=== PATIENT | female | born 1940 | race Caucasian/White ===

== ENCOUNTER → 2018-04-30 07:57 | Outpatient (CLI) | payer MEDICARE, SELFPAY ==
[2018-04-30 09:02] LABS: Add Manual Diff / Slide Review NO; Basophils Percent Auto 0.7 % (0-2); Eosinophils Percent Auto 1.3 % (2-4); Hematocrit 44.4 % (36-46); Hemoglobin 15.2 g/dL (12.0-16.0); Lymphocytes Percent Auto 29.9 % (25-40); Mean Corpuscular HGB Conc 34.1 % (30-36); Mean Corpuscular Hemoglobin 32.4 PG (26-34); Mean Corpuscular Volume 94.9 fL (80-100); Monocytes Percent Auto 5.7 % (3-14); Neutrophils Absolute Auto 6000 /uL (3000-5900); Neutrophils Percent Auto 62.4 % (50-75); Platelet Count 209 X10^3/uL (150-400); Red Blood Cell Count 4.68 X10^6/uL (4.0-5.2); Red Cell Distribution Width 14.8 % (11.6-14.8); White Blood Cell Count 9.6 X10^3/uL (4.5-11.0)
[2018-04-30 09:30] LABS: Blood Urea Nitrogen 20 mg/dL (7-17); Calcium 9.2 mg/dL (8.4-10.2); Carbon Dioxide 33 mmol/L (22-32); Chloride 107 mmol/L (98-107); Cholesterol 247 mg/dL (140-199); Estimated Glomerular Filt Rate > 60.0 mL/min (>60); Glucose 94 mg/dL (80-110); HDL Cholesterol 47 mg/dL (40-60); HEMOLYSIS < 15 (0-50); LDL Cholesterol Calculated 169 mg/dL (<100); Sodium 146 mmol/L (137-145); Triglycerides 154 mg/dL (35-150)
[2018-04-30 10:46] LABS: Hemoglobin A1C% w Est Avg Glu 5.2 % (4.0-6.0)
[2018-04-30 11:54] LABS: Free T4, Direct Thyroxine 1.15 ng/dL (0.78-2.19)
[2018-04-30 12:18] LABS: TSH w/ Reflex to FT4 1.21 uIU/mL (0.47-4.68)
== END ==
PROVIDERS: PCP Family Medicine; Visit Provider Family Medicine
DX: E16.2 Hypoglycemia, unspecified (principal); E78.5 Hyperlipidemia, unspecified; E03.9 Hypothyroidism, unspecified
CPT/HCPCS: 36415; 80048; 80061; 83036; 84439; 84443; 85025

== ENCOUNTER → 2018-09-24 08:29 | Outpatient (CLI) | payer MEDICARE, SELFPAY ==
[2018-09-24 10:10] LABS: Cholesterol 280 mg/dL (140-199); HDL Cholesterol 48 mg/dL (40-60); LDL Cholesterol Calculated 196 mg/dL (<100); Triglycerides 180 mg/dL (35-150)
[2018-09-24 10:13] LABS: Free T3, Triiodothyronine Free 2.83 pg/mL (2.77-5.27); Free T4, Direct Thyroxine 1.13 ng/dL (0.78-2.19)
== END ==
PROVIDERS: PCP Family Medicine; Visit Provider Family Medicine
DX: E03.9 Hypothyroidism, unspecified (principal); E78.5 Hyperlipidemia, unspecified
CPT/HCPCS: 36415; 80061; 84439; 84443; 84481

== ENCOUNTER → 2018-10-24 09:58 | Outpatient (CLI) | payer MEDICARE, SELFPAY | PROVIDERS: Family Provider Family Medicine; PCP Family Medicine; Visit Provider Family Medicine | DX: Z13.820 Encounter for screening for osteoporosis (principal); M85.852 Other specified disorders of bone density and structure, left thigh; Z78.0 Asymptomatic menopausal state; Z90.722 Acquired absence of ovaries, bilateral; S62.101A Fracture of unspecified carpal bone, right wrist, initial encounter for closed fracture; F17.200 Nicotine dependence, unspecified, uncomplicated | CPT/HCPCS: 77080 ==

== ENCOUNTER → 2019-04-07 07:43 | Outpatient (CLI) | payer MEDICARE, SELFPAY ==
[2019-04-07 08:47] LABS: Add Manual Diff / Slide Review NO; Basophils Absolute Auto 100 /uL (0-100); Eosinophils Absolute Auto 100 /uL (0-450); Eosinophils Percent Auto 1.4 % (2-4); Hematocrit 43.6 % (36-46); Hemoglobin 15.1 g/dL (12.0-16.0); Lymphocytes Absolute Auto 3200 /uL (1100-4500); Lymphocytes Percent Auto 33.6 % (25-40); Mean Corpuscular HGB Conc 34.7 % (30-36); Mean Corpuscular Hemoglobin 32.9 PG (26-34); Mean Corpuscular Volume 94.9 fL (80-100); Monocytes Absolute Auto 500 /uL (0-900); Monocytes Percent Auto 5.5 % (3-14); Neutrophils Absolute Auto 5600 /uL (1500-7000); Neutrophils Percent Auto 58.5 % (50-75); Platelet Count 233 X10^3/uL (150-400); Red Cell Distribution Width 13.9 % (11.6-14.8); White Blood Cell Count 9.6 X10^3/uL (4.5-11.0)
[2019-04-07 08:49] LABS: Appearance Urine UA CLEAR; Bilirubin Urine UA NEGATIVE (NEGATIVE); Color Urine UA YELLOW; Glucose Urine UA NEGATIVE (Negative); Ketones Urine UA NEGATIVE (NEGATIVE); Leukocyte Esterase Urine UA NEGATIVE (NEGATIVE); Nitrite Urine UA NEGATIVE (Negative); Occult Blood Urine UA 3+ (Negative); Protein Urine UA 3+ (Negative); Specific Gravity Urine UA 1.025 (1.000-1.035); Urobilinogen Urine UA 0.2 E.U./dL (0.2); pH Urine UA 5.5 (4.5-8.0)
[2019-04-07 09:33] LABS: Alanine Aminotransferase 15 IU/L (9-52); Albumin 3.8 g/dL (3.5-5.0); Albumin Globulin Ratio 1.4 (1.0-2.8); Alkaline Phosphatase 74 U/L (38-126); Aspartate Aminotransferase 24 IU/L (14-36); Bilirubin Total 0.5 mg/dL (0.2-1.3); Blood Urea Nitrogen 12 mg/dL (7-17); Carbon Dioxide 31 mmol/L (22-32); Chloride 108 mmol/L (98-107); Cholesterol 225 mg/dL (140-199); Estimated Glomerular Filt Rate > 60.0 mL/min (>60); Globulin 2.8 g/dL (1.7-4.1); Glucose 100 mg/dL (80-110); HDL Cholesterol 42 mg/dL (40-60); HEMOLYSIS < 15 (0-50); LDL Cholesterol Calculated 146 mg/dL (<100); Potassium 4.1 mmol/L (3.4-5.1); Sodium 145 mmol/L (137-145); Total Protein 6.6 g/dL (6.3-8.2); Triglycerides 183 mg/dL (35-150)
[2019-04-07 09:40] LABS: Thyroid Stimulating Hormone 1.82 uIU/mL (0.47-4.68)
== END ==
PROVIDERS: Family Provider Family Medicine; PCP Family Medicine; Visit Provider Family Medicine
DX: E78.5 Hyperlipidemia, unspecified (principal); E03.9 Hypothyroidism, unspecified
CPT/HCPCS: 36415; 80053; 80061; 81003; 84443; 85025

== ENCOUNTER → 2019-11-27 08:35 | Outpatient (CLI) | payer MEDICARE, SELFPAY ==
[2019-11-27 09:33] LABS: Add Manual Diff / Slide Review NO; Basophils Absolute Auto 100 /uL (0-100); Basophils Percent Auto 0.8 % (0-2); Eosinophils Absolute Auto 100 /uL (0-450); Eosinophils Percent Auto 1.5 % (2-4); Hematocrit 44.3 % (36-46); Hemoglobin 15.5 g/dL (12.0-16.0); Lymphocytes Absolute Auto 3000 /uL (1100-4500); Lymphocytes Percent Auto 29.7 % (25-40); Mean Corpuscular Hemoglobin 33.5 PG (26-34); Mean Corpuscular Volume 95.9 fL (80-100); Monocytes Absolute Auto 500 /uL (0-900); Monocytes Percent Auto 4.9 % (3-14); Neutrophils Absolute Auto 6400 /uL (1500-7000); Neutrophils Percent Auto 63.1 % (50-75); Platelet Count 227 X10^3/uL (150-400); Red Blood Cell Count 4.62 X10^6/uL (4.0-5.2); Red Cell Distribution Width 14.4 % (11.6-14.8); White Blood Cell Count 10.1 X10^3/uL (4.5-11.0)
[2019-11-27 09:50] LABS: Alanine Aminotransferase 18 IU/L (<35); Albumin 4.1 g/dL (3.5-5.0); Albumin Globulin Ratio 1.5 (1.0-2.8); Alkaline Phosphatase 69 U/L (38-126); Aspartate Aminotransferase 25 IU/L (14-36); BUN Creatinine Ratio 24.3 (6-22); Bilirubin Total 0.5 mg/dL (0.2-1.3); Blood Urea Nitrogen 17 mg/dL (7-17); Calcium 9.3 mg/dL (8.4-10.2); Carbon Dioxide 29 mmol/L (22-32); Chloride 106 mmol/L (98-107); Cholesterol 190 mg/dL (140-199); Estimated Glomerular Filt Rate > 60.0 mL/min (>60); Globulin 2.7 g/dL (1.7-4.1); Glucose 99 mg/dL (80-110); HDL Cholesterol 49 mg/dL (40-60); HEMOLYSIS < 15 (0-50); LDL Cholesterol Calculated 102 mg/dL (<100); Potassium 3.9 mmol/L (3.4-5.1); Sodium 144 mmol/L (137-145); Total Protein 6.8 g/dL (6.3-8.2); Triglycerides 193 mg/dL (35-150)
[2019-11-27 10:14] LABS: Free T4, Direct Thyroxine 1.08 ng/dL (0.78-2.19)
[2019-11-27 10:28] LABS: Thyroid Stimulating Hormone 1.05 uIU/mL (0.47-4.68)
== END ==
PROVIDERS: Family Provider Family Medicine; PCP Family Medicine; Referring Provider Family Medicine; Visit Provider Family Medicine
DX: E03.9 Hypothyroidism, unspecified (principal); E78.5 Hyperlipidemia, unspecified
CPT/HCPCS: 36415; 80053; 80061; 84439; 84443; 84481; 85025

== ENCOUNTER → 2020-12-29 09:03 | Outpatient (CLI) | payer MEDICARE, SELFPAY ==
[2020-12-29] MEDS: COVID-19 VACC, Ad26(JANSSEN)/PF 0.5 ML IM (09:10)
== END ==
PROVIDERS: Family Provider Family Medicine; PCP Family Medicine; Visit Provider Internal Medicine
DX: Z23 Encounter for immunization (principal)
CPT/HCPCS: 0031A; 91303

== ENCOUNTER 2021-10-01 15:05 | Emergency (ER) | payer MEDICARE, SELFPAY ==
[2021-10-01 15:20] VITALS: BP 157/70; PULSE 94; RESP 16; TEMP 36.4; O2SAT 100; BMI 21.2
--- NOTE | 2021-10-01 15:29 | DI.RAD.S_ITS ---
PROCEDURE: XR HIP W PEL IF DONE RT 2V INDICATIONS: fall/pain/slidind door landed on her TECHNIQUE: Two views of the right were acquired. COMPARISON: None. FINDINGS: Bones: No fractures or dislocations. No suspicious bony lesions. The visualized pelvic ring appears intact. Soft tissues: No suspicious soft tissue calcifications or masses. IMPRESSION: No fracture demonstrated. Dictated by: Osbaldo Warner M.D. on 10/01/2021 at 16:22 Approved by: Osbaldo Warner M.D. on 10/01/2021 at 16:23
--- NOTE | 2021-10-01 15:30 | DI.RAD.S_ITS ---
PROCEDURE: XR KNEE RT 3V INDICATIONS: fall/pain/slidind door landed on her TECHNIQUE: 3 views of the knee were acquired. COMPARISON: None. FINDINGS: Bones: No fractures or dislocations. No suspicious bony lesions. Soft tissues: No joint effusion. No suspicious soft tissue calcifications. IMPRESSION: No acute finding Dictated by: Osbaldo Warner M.D. on 10/01/2021 at 16:23 Approved by: Osbaldo Warner M.D. on 10/01/2021 at 16:23
--- NOTE | 2021-10-01 16:59 | ED_ITS ---
HPI - Extremity Injury (Lower) <Carmelina June Escalona [employer]PER[employer] - Last Filed: 10/01/21 18:21> General Chief Complaint: Extremity Injury, Lower Stated Complaint: RT HIP/KNEE PAIN POST GLASS DOOR FALLING ON HER Time Seen by Provider: 10/01/21 16:58 Source: patient Mode of arrival: Ambulatory History of Present Illness HPI Narrative: 81-year-old female presents to the emergency department for ongoing right hip and knee pain after a glass door fell on her without breaking 1 week ago. Patient reports that she has had symptoms of sciatica, right hip pain, and right knee pain which is worse in the morning when she gets up, she reports he gets better after some gentle range of motion. She has been taking Aleve, and Flexeril for her pain. She has been using a cane to ambulate and denies any weakness. She reports that she has history of spinal stenosis, osteopenia, she denies any spinal pain, she reports that her pain is mostly in her right buttock and there is a large bruise which has been healing but turning different colors this week. She also has a bruise on the medial aspect of her right knee which she reports is starting to feel better but is still painful. She is able to bear weight, range of motion in her right knee and her right hip is intact without any deficits. She walks with a steady gait, denies any loss of bowel, endorses that she has incontinence of her bladder at baseline. Patient reports that her orthopedist is Dr. Mariely Vang, and her primary care doctor is Dr. Salas. Patient reports she is very active at baseline, is not on any blood thinners, she endorses having history of Sjogren's syndrome. Related Data Home Medications Medication Instructions Recorded Confirmed loperamide 1 mg/7.5 mL oral liquid 1 mg PO DAILY PRN #0 ml 05/07/18 02/14/21 (Imodium A-D) Probiotic PO TID 03/22/20 02/14/21 cholecalciferol (vitamin D3) 100 200 mcg PO DAILY tab 03/22/20 02/14/21 mcg (4,000 unit) tablet melatonin 5 mg tablet 5 mg PO BEDTIME PRN 03/22/20 02/14/21 multivitamin 1 tab PO DAILY 03/22/20 02/14/21 omega-3 fatty acids 1,000 mg 1,000 mg PO DAILY 03/22/20 02/14/21 capsule (Fish Oil Concentrate) Previous Rx's Medication Instructions Recorded cyclobenzaprine 10 mg tablet 10 mg PO DAILY PRN #30 tab 05/26/19 buspirone 5 mg tablet 5 mg PO BID #60 tab 04/17/21 levothyroxine 50 mcg tablet See Rx Instructions .ROUTE 06/20/21 .COMPLEX #90 tab ezetimibe 10 mg tablet See Rx Instructions .ROUTE 08/15/21 .COMPLEX #90 tab gabapentin 100 mg capsule See Rx Instructions .ROUTE 09/21/21 .COMPLEX #240 cap acetaminophen 300 mg-codeine 30 mg 1 tab PO BID PRN #10 tab 10/01/21 tablet methocarbamol 500 mg tablet 500 mg PO BEDTIME #10 tab 10/01/21 Allergies Allergy/AdvReac Type Severity Reaction Status Date / Time meloxicam [MELOXICAM] Allergy Severe ANAPHYLAXIS Verified 02/14/21 08:29 atorvastatin [From LIPITOR] Allergy Unknown MUSCLE Verified 02/14/21 08:29 PAIN, ANKLE SWELLING levofloxacin [LEVOFLOXACIN] Allergy Unknown TENDONITIS Verified 02/14/21 08:29 Penicillins Allergy Unknown ANAPHLYAXSI Verified 02/14/21 08:29 S rifampin [RIFAMPIN] Allergy Unknown Verified 02/14/21 08:29 simvastatin [From ZOCOR] Allergy Unknown Verified 02/14/21 08:29 metoprolol [METOPROLOL] AdvReac Unknown HAIR LOSS Verified 02/14/21 08:29 NSAIDS (Non-Steroidal AdvReac Unknown BREAST Verified 02/14/21 08:29 Anti-Inflamma SWELLING [NSAIDS (NON-STEROIDAL ANTI-INFLAMMA] Review of Systems <CATY Gonzalez - Last Filed: 10/01/21 18:21> Review of Systems Narrative: General: denies fever, chills Head/Neck: denies headache, neck pain Eyes: denies visual changes, eye pain Cardio: denies chest pain, palpitations Respiratory: denies shortness of breath, cough GI: denies abdominal pain, nausea, vomiting, or diarrhea : denies dysuria, hematuria MSK: denies muscle weakness, endorses right hip, buttock, thigh and right knee pain. Bruising present to her right buttock hip and right knee Skin: denies rash, itching Neuro: denies numbness, tingling Patient History <CATY Gonzalez - Last Filed: 10/01/21 18:21> Medical History Arthritis (Unknown) Cataracts, bilateral (2001) Chickenpox (~1947) Chronic diarrhea Chronic neck and back pain Chronic pain syndrome (Unknown) COPD (chronic obstructive pulmonary disease) (1998) Fractures (~1980) History of recurrent ear infection (Unknown) Hypothyroidism (Unknown) Mumps (~1947) Osteopenia (2004) Scoliosis (2015) Sjogren's syndrome (1998) Tinnitus of both ears (Unknown) Trigger finger, right middle finger Surgical History History of cataract removal with insertion of prosthetic lens History of open reduction and internal fixation (ORIF) procedure (11/2017) Hx of discectomy (Unknown) Hx of laminectomy (Unknown) Status post hysterectomy Family History Father Cancer Grandmother DM (diabetes mellitus screen) Mother Cancer Grandfather DM (diabetes mellitus screen) Grandfather Mental health problem Family/Other No problems noted. Social History Smoking Status: Current every day smoker Tobacco: How many years used: 59 quit status: considering quitting second hand exposure: Yes alcohol intake: never substance use type: does not use Smoking Status: Current every day smoker alcohol intake frequency: 0-2 drinks per day Substance Use Type: does not use Exam <CATY Gonzalez - Last Filed: 10/01/21 18:21> Narrative Exam Narrative: Independently reviewed vitals signs and nursing notes. General: Awake, alert, nontoxic, no cardiorespiratory distress Head/Neck: Atraumatic, neck full range of motion Eyes: EOMI, conjunctiva normal Nose: nares patent, no rhinorrhea Mouth/Throat: moist mucus membranes, posterior pharynx normal, no oral lesions Cardio: Regular rate and rhythm, no peripheral edema Respiratory: respirations unlabored without wheezing, stridor, or rales. No retractions. GI: Abdomen soft, nontender MSK: Moves all extremities, neurovascularly intact, pulses in her right foot are 2+ PT and DP, range of motion is fully intact right knee and right hip. Leg raise does reproduce pain in her low back with symptoms in her right hip and but tock. She has a large colorful bruise on her right buttock and lateral aspect of her right thigh, she also has a bruise on the medial aspect of her right knee which is starting to lighten. Skin: Normal capillary refill, no rash Neuro: Normal speech and cognition, normal gait Initial Vital Signs Initial Vital Signs: Vital Signs Temperature 97.6 F 10/01/21 15:20 Pulse Rate 94 H 10/01/21 15:20 Respiratory Rate 16 10/01/21 15:20 Blood Pressure 157/70 H 10/01/21 15:20 Pulse Oximetry 100 10/01/21 15:20 Course <CATY Gonzalez - Last Filed: 10/01/21 18:21> Orders Ordered: ED Orders 10/01/21 15:29 XR hip w pel if done RT 2V Stat 10/01/21 15:30 XR knee RT 3V Stat Discontinued Medications Acetaminophen/Codeine Phosphate (Codeine/Acetaminophen 30/300 Tablet) 1 tab PO NOW ONE Stop: 10/01/21 18:03 Last Admin: 10/01/21 18:37 Dose: Not Given Documented by: LOU Methocarbamol (Methocarbamol 500 Mg Tablet) 500 mg PO NOW ONE Stop: 10/01/21 18:03 Last Admin: 10/01/21 18:38 Dose: Not Given Documented by: LOU Vital Signs Vital signs: Vital Signs - 8 hr 10/01/21 15:20 Temperature 97.6 F Pulse Rate 94 H Respiratory Rate 16 Blood Pressure 157/70 H Pulse Oximetry 100 MDM - Extremity Injury (Lower) <CATY Gonzalez - Last Filed: 10/01/21 18:21> Imaging Data Extremity x-ray #1: Radiologist's Impression: PROCEDURE:? XR KNEE RT 3V ? INDICATIONS:? fall/pain/slidind door landed on her ? TECHNIQUE:? 3 views of the knee were acquired.? ? COMPARISON:? None. ? FINDINGS:? ? Bones:? No fractures or dislocations.? No suspicious bony lesions.? ? Soft tissues:? No joint effusion.? No suspicious soft tissue calcifications.? ? ? IMPRESSION:? No acute finding ? ? Dictated by: Osbaldo Warner M.D. on 10/01/2021 at 16:23 ? ? Approved by: Osbaldo Warner M.D. on 10/01/2021 at 16:23 ? Extremity x-ray #2: Radiologist's Impression: PROCEDURE:? XR HIP W PEL IF DONE RT 2V ? INDICATIONS:? fall/pain/slidind door landed on her ? TECHNIQUE:? Two views of the right were acquired.? ? COMPARISON:? None. ? FINDINGS:? ? Bones:? No fractures or dislocations.? No suspicious bony lesions.? The visualized pelvic ring appears intact.? ? Soft tissues:? No suspicious soft tissue calcifications or masses.? ? IMPRESSION:? No fracture demonstrated. ? ? Dictated by: Osbaldo Warner M.D. on 10/01/2021 at 16:22 ? ? Approved by: Osbaldo Warner M.D. on 10/01/2021 at 16:23 ? [facility] Narrative Medical decision making narrative: 81-year-old female presented to the emergency department with ongoing right hip and right knee pain which has been present since a glass door fell on her 1 week ago, it did not break however it did cause a large contusion of her right hip and the medial aspect of her right knee. She does not think that anything twisted when it fell on her butt she reports she has had ongoing pain which is worse in the morning. X-rays were both negative for acute fractures or dislocations, no visualized effusions in her joint spaces. Patient has been ambulating with a cane at home which has been helpful but she reports it is a little difficult getting up and down with it. She has been taking Aleve which has been moderately helpful she complains that it does not last long enough. She most likely has contusions of her right and knee, she has full range of motion without deficit. She has a history of spinal stenosis with symptoms of sciatica, she denies any worsening of this however she has experienced some sciatica at down her right buttock this week. She has had no new loss of bowel or bladder, she has urinary incontinence at baseline. She was given a walker to help her ambulate, Tylenol 3 for pain, and methocarbamol for muscle spasms. Differential includes cauda equina syndrome, sciatica, trochanteric bursitis, hip joint arthritis, sacroiliitis, lumbar facet joint degenerative arthritis, lumbar disc herniation with sciatica. Patient understands to follow-up with her primary care provider and Orthopedics if her symptoms are ongoing. Patient is appropriate and amenable to discharge home. Vital signs are stable on repeat examination is unremarkable. Patient has been informed of results. Patient has been given strict return to ER precautions for any new or worsening symptoms. Patient understands to follow up closely with outpatient providers as instruc tylor. Patient understands plan and agrees to discharge home. All questions and concerns answered at this time. Discharge Plan Departure Patient Disposition: Home Clinical Impression: Contusion of right hip Qualifiers: Encounter type: initial encounter Qualified Code(s): S70.01XA - Contusion of right hip, initial encounter Contusion of knee Qualifiers: Encounter type: initial encounter Laterality: right Qualified Code(s): S80.01XA - Contusion of right knee, initial encounter Instructions: DI for Knee Pain, DI for Hip Pain Activity Restrictions/Additional Instructions: *You have been diagnosed with contusions of your hip and knee. There are no fractures visualized on your x-ray today. Please follow-up with Dr. Mariely Vang and Dr. Salas for a recheck *What to do: *Please continue to take your regular medications as directed. [x ] New medication prescriptions sent to your pharmacy: [ [facility] pharmacy] [ ] New medication written as a paper prescription [ ] No new medications given *Please follow up with your primary care provider in 2-3 days, call for an appointment. Let them know you were seen in the Emergency Department and that we ask that you be seen in follow up. We will electronically transmit a record of today's note if your PCP is in our system *If you do not have a primary care provider please contact the [facility] Resource line at [phone]. They will ask some questions about your medical history and help get you set up with a doctor in the community. *Return to Emergency Department if you should have any new, worsening or concerning symptoms, such as [fever greater than 101F, chills, worsening pain, persistent vomiting or other bothersome symptoms] Prescriptions: New acetaminophen-codeine 300-30 mg tablet 1 tab PO BID PRN (Reason: pain) Qty: 10 0RF methocarbamol 500 mg tablet 500 mg PO BEDTIME Qty: 10 0RF No Action loperamide [Imodium A-D] 1 mg/7.5 mL liquid 1 mg PO DAILY PRNQty: 0 0RF cyclobenzaprine 10 mg tablet 10 mg PO DAILY PRN (Reason: muscle spasm) Qty: 30 0RF buspirone 5 mg tablet 5 mg PO BID Qty: 60 5RF levothyroxine 50 mcg tablet See Rx Instructions .ROUTE .COMPLEX Qty: 90 1RF Dose Instruction: TAKE ONE TABLET BY MOUTH ONE TIME DAILY Rx Instructions: TAKE ONE TABLET BY MOUTH ONE TIME DAILY ezetimibe 10 mg tablet See Rx Instructions .ROUTE .COMPLEX Qty: 90 0RF Dose Instruction: TAKE ONE TABLET BY MOUTH ONE TIME DAILY Rx Instructions: TAKE ONE TABLET BY MOUTH ONE TIME DAILY gabapentin 100 mg capsule See Rx Instructions .ROUTE .COMPLEX Qty: 240 0RF Dose Instruction: TAKE TWO CAPSULES BY MOUTH FOUR TIMES DAILY Rx Instructions: TAKE TWO CAPSULES BY MOUTH FOUR TIMES DAILY Probiotic PO TID 0RF cholecalciferol (vitamin D3) 100 mcg (4,000 unit) tablet 200 mcg PO DAILY 0RF melatonin 5 mg tablet 5 mg PO BEDTIME PRN0RF omega-3 fatty acids [Fish Oil Concentrate] 1,000 mg capsule 1,000 mg PO DAILY 0RF multivitamin Tablet 1 tab PO DAILY 0RF Referrals: Mariely Vang MD [Physician] - 5-7 days Michel Salas DO [Primary Care Provider] -
== END 2021-10-01 18:41 | disposition home or self-care (01) ==
PROVIDERS: Emergency Provider Nurse Practitioner Critical Care Medicine; Family Provider Family Medicine; PCP Family Medicine
DX: S70.01XA Contusion of right hip, initial encounter (principal); S80.01XA Contusion of right knee, initial encounter; W20.8XXA Other cause of strike by thrown, projected or falling object, initial encounter
CPT/HCPCS: 73502; 73562; 99283

== ENCOUNTER → 2021-10-07 16:07 | Outpatient (CLI) | payer MEDICARE, SELFPAY ==
[2021-10-07 17:02] LABS: COVID19 -Nasal RAPID Negative (Negative)
== END ==
PROVIDERS: Family Provider Family Medicine; PCP Family Medicine; Visit Provider Physician Assistant
DX: R09.89 Other specified symptoms and signs involving the circulatory and respiratory systems (principal); J02.9 Acute pharyngitis, unspecified
CPT/HCPCS: 87635

== ENCOUNTER → 2021-10-08 10:42 | Outpatient (CLI) | payer MEDICARE, SELFPAY ==
--- NOTE | 2021-10-08 10:46 | DI.RAD.S_ITS ---
PROCEDURE: XR CHEST 2V INDICATIONS: cough x1 mo, worsening, fever 2d ago, fhx lung CA TECHNIQUE: 2 views of the chest were acquired. COMPARISON: None. FINDINGS: Surgical changes and devices: None. Lungs and pleura: Lungs are clear. No pleural effusions or pneumothorax. Mediastinum: Mediastinal contours are normal. Heart size is normal. Bones and chest wall: Degenerative changes with no focal abnormality. No suspicious bony abnormalities. Soft tissues appear unremarkable. IMPRESSION: No acute cardiopulmonary abnormality. Dictated by: Bon Robbins M.D. on 10/08/2021 at 10:45 Approved by: Bon Robbins M.D. on 10/08/2021 at 10:52
== END ==
PROVIDERS: Family Provider Family Medicine; PCP Family Medicine; Referring Provider Physician Assistant; Visit Provider Physician Assistant
DX: J06.9 Acute upper respiratory infection, unspecified (principal)
CPT/HCPCS: 71046

== ENCOUNTER → 2022-03-14 09:30 | Outpatient (CLI) | payer MEDICARE, SELFPAY ==
[2022-03-14 10:29] LABS: Add Manual Diff / Slide Review NO; Basophils Absolute Auto 100 /uL (0-100); Basophils Percent Auto 0.7 % (0-2); Eosinophils Absolute Auto 100 /uL (0-450); Eosinophils Percent Auto 0.5 % (2-4); Hematocrit 42.6 % (36-46); Lymphocytes Absolute Auto 2900 /uL (1100-4500); Lymphocytes Percent Auto 27.3 % (25-40); Mean Corpuscular HGB Conc 35.2 % (30-36); Mean Corpuscular Hemoglobin 33.4 PG (26-34); Mean Corpuscular Volume 94.8 fL (80-100); Monocytes Absolute Auto 500 /uL (0-900); Monocytes Percent Auto 4.4 % (3-14); Neutrophils Absolute Auto 7200 /uL (1500-7000); Neutrophils Percent Auto 67.1 % (50-75); Platelet Count 199 X10^3/uL (150-400); Red Blood Cell Count 4.49 X10^6/uL (4.0-5.2); Red Cell Distribution Width 14.3 % (11.6-14.8); White Blood Cell Count 10.8 X10^3/uL (4.5-11.0)
[2022-03-14 10:50] LABS: Alanine Aminotransferase 11 IU/L (<35); Albumin 4.6 g/dL (3.5-5.0); Albumin Globulin Ratio 1.9 (1.0-2.8); Alkaline Phosphatase 91 U/L (38-126); Aspartate Aminotransferase 21 IU/L (14-36); BUN Creatinine Ratio 16.9 (6-22); Bilirubin Total 0.6 mg/dL (0.2-1.3); Blood Urea Nitrogen 13 mg/dL (7-17); Calcium 9.7 mg/dL (8.4-10.2); Carbon Dioxide 28 mmol/L (22-32); Chloride 106 mmol/L (98-107); Cholesterol 166 mg/dL (140-199); Estimated Glomerular Filt Rate > 60 mL/min (>60); Globulin 2.4 g/dL (1.7-4.1); Glucose 103 mg/dL (80-110); HDL Cholesterol 48 mg/dL (40-60); HEMOLYSIS < 15 (0-50); LDL Cholesterol Calculated 89 mg/dL (<100); Potassium 4.1 mmol/L (3.4-5.1); Sodium 143 mmol/L (137-145); Triglycerides 146 mg/dL (35-150)
[2022-03-14 11:05] LABS: Free T3, Triiodothyronine Free 2.98 pg/mL (2.77-5.27)
[2022-03-14 11:19] LABS: TSH w/ Reflex to FT4 0.91 uIU/mL (0.47-4.68)
== END ==
PROVIDERS: Family Provider Family Medicine; PCP Family Medicine; Referring Provider Family Medicine; Visit Provider Family Medicine
DX: E78.5 Hyperlipidemia, unspecified (principal); E03.9 Hypothyroidism, unspecified
CPT/HCPCS: 36415; 80053; 80061; 84443; 84481; 85025

== ENCOUNTER → 2023-04-19 12:29 | Outpatient (CLI) | payer MEDICARE, SELFPAY ==
[2023-04-19 13:34] LABS: Add Manual Diff / Slide Review NO; Basophils Absolute Auto 100 /uL (0-100); Basophils Percent Auto 0.8 % (0-2); Eosinophils Absolute Auto 100 /uL (0-450); Eosinophils Percent Auto 0.9 % (2-4); Hematocrit 44.9 % (36-46); Hemoglobin 15.6 g/dL (12.0-16.0); Lymphocytes Absolute Auto 3900 /uL (1100-4500); Lymphocytes Percent Auto 35.1 % (25-40); Mean Corpuscular HGB Conc 34.8 % (30-36); Mean Corpuscular Hemoglobin 32.9 PG (26-34); Mean Corpuscular Volume 94.5 fL (80-100); Monocytes Absolute Auto 700 /uL (0-900); Monocytes Percent Auto 6.4 % (3-14); Neutrophils Absolute Auto 6300 /uL (1500-7000); Neutrophils Percent Auto 56.8 % (50-75); Platelet Count 202 X10^3/uL (150-400); Red Blood Cell Count 4.75 X10^6/uL (4.0-5.2); Red Cell Distribution Width 14.4 % (11.6-14.8); White Blood Cell Count 11.1 X10^3/uL (4.5-11.0)
[2023-04-19 13:51] LABS: Alanine Aminotransferase 19 IU/L (<35); Albumin 4.7 g/dL (3.5-5.0); Albumin Globulin Ratio 1.5 (1.0-2.8); Alkaline Phosphatase 99 U/L (38-126); Aspartate Aminotransferase 26 IU/L (14-36); BUN Creatinine Ratio 22.7 (6-22); Bilirubin Total 0.6 mg/dL (0.2-1.3); Blood Urea Nitrogen 17 mg/dL (7-17); Calcium 9.5 mg/dL (8.4-10.2); Carbon Dioxide 26 mmol/L (22-32); Chloride 105 mmol/L (98-107); Cholesterol 235 mg/dL (140-199); Estimated Glomerular Filt Rate > 60 mL/min (>60); Globulin 3.1 g/dL (1.7-4.1); Glucose 97 mg/dL (80-110); HDL Cholesterol 45 mg/dL (40-60); HEMOLYSIS < 15 (0-50); LDL Cholesterol Calculated 153 mg/dL (<100); Potassium 3.7 mmol/L (3.4-5.1); Sodium 141 mmol/L (137-145); Total Protein 7.8 g/dL (6.3-8.2); Triglycerides 184 mg/dL (35-150)
[2023-04-19 14:20] LABS: TSH w/ Reflex to FT4 1.35 uIU/mL (0.47-4.68)
== END ==
PROVIDERS: Family Provider Family Medicine; PCP Family Medicine; Referring Provider Family Medicine; Visit Provider Family Medicine
DX: E03.9 Hypothyroidism, unspecified (principal); E78.2 Mixed hyperlipidemia; M85.80 Other specified disorders of bone density and structure, unspecified site
CPT/HCPCS: 36415; 80053; 80061; 84443; 85025

== ENCOUNTER → 2023-04-19 | Outpatient (CLI) | payer MEDICARE, SELFPAY | LOC: LAB 11:40 | PROVIDERS: Family Provider Family Medicine; PCP Family Medicine; Referring Provider Family Medicine; Visit Provider Family Medicine | DX: Z01.812 Encounter for preprocedural laboratory examination (principal) ==

== ENCOUNTER 2024-06-30 04:47 | Inpatient (IN) | payer MEDICARE, SELFPAY ==
[2024-06-30] VITALS (21 sets, daily range): BP systolic 95–175; BP diastolic 42–75; PULSE 70–98; RESP 11–20; TEMP 36.6–37.5; O2SAT 96–100; BMI 20.3; BMI 19.7
--- NOTE | 2024-06-30 | DI.RAD.S_ITS ---
PROCEDURE: XR HIP W PEL IF DONE LT 2V INDICATIONS: OLY anterior Left TECHNIQUE: AP pelvis and lateral view of the hip acquired. COMPARISON: [facility], JUSTIN, XR HIP W PEL IF DONE LT 2V, 06/30/2024, 18:17. FINDINGS: Bones: Patient is status post left hip arthroplasty, with hardware components in expected positions. The hip joint appears congruent. The visualized bony structures appear intact. Soft tissues: Overlying postoperative changes are noted. No suspicious soft tissue densities. IMPRESSION: Expected post-operative appearance of a hip arthroplasty. Dictated by: Kevin Olmstead M.D. on 06/30/2024 at 20:15 Approved by: Kevin Olmstead M.D. on 06/30/2024 at 20:16
--- NOTE | 2024-06-30 | DI.RAD.S_ITS ---
PROCEDURE: XR HIP W PEL IF DONE LT 2V INDICATIONS: OLY anterior left TECHNIQUE: AP pelvis with lateral view(s) of the left hip(s). 5 images. [facility], [id number], [facility]/16/2017, 8:39. FINDINGS: Bones: Status post left hip arthroplasty. Arthroplasty projects in the expected location. No fractures or dislocations. IMPRESSION: Intraoperative guidance provided. Left hip arthroplasty projects in the expected location. Dictated by: Bandar Whitney M.D. on 06/30/2024 at 20:02 Approved by: Bandar Whitney M.D. on 06/30/2024 at 20:03
--- NOTE | 2024-06-30 04:51 | DI.RAD.S_ITS ---
PROCEDURE: XR FEMUR LT MIN 2V INDICATIONS: GLF/L HIP/LEG PAIN TECHNIQUE: 3 views of the femur were acquired. COMPARISON: [facility], , XR PELVIS 1-2V, 06/30/2024, 5:05. FINDINGS: Bones: No fractures or dislocations. No suspicious bony lesions. Arthritic changes at the hip as well as visualized knee. Soft tissues: No suspicious soft tissue calcifications or masses. IMPRESSION: No visualized acute fracture or dislocation. However, if clinical concern and/or pain persist, short interval imaging followup in 7-10 days is recommended, as occult injury cannot be definitively excluded. The above findings are concordant with preliminary report. Dictated by: Elena Lai M.D. on 06/30/2024 at 9:30 Approved by: Elena Lai M.D. on 06/30/2024 at 9:32
--- NOTE | 2024-06-30 04:51 | DI.RAD.S_ITS ---
PROCEDURE: XR PELVIS 1-2V INDICATIONS: GLF/L HIP/CAN'T BEAR WEIGHT TECHNIQUE: 1 view(s) of the pelvis acquired. COMPARISON: [facility], CR, XR HIP W PEL IF DONE RT 2V, 10/01/2021, 15:50. FINDINGS: Bones: No fractures or dislocations. No suspicious bony lesions. Arthritic changes are present within the hips bilaterally. Soft tissues: Visualized bowel gas pattern is normal. No suspicious soft tissue calcifications. IMPRESSION: Arthritic changes. No visualized acute fracture or dislocation. However, if clinical concern and/or pain persist, short interval imaging followup in 7-10 days is recommended, as occult injury cannot be definitively excluded. The above findings are concordant with preliminary report. Dictated by: Elena Lai M.D. on 06/30/2024 at 9:32 Approved by: Elena Lai M.D. on 06/30/2024 at 9:33
--- NOTE | 2024-06-30 04:52 | ED.FALL ---
HPI - Fall <Savanah William MD - Last Filed: 06/30/24 18:54> General Chief Complaint: Fall Stated Complaint: GLF/Wrist Pain Time Seen by Provider: 06/30/24 04:51 History of Present Illness HPI Narrative: 84 year old female presents by EMS from home for evaluation of left hip pain after a ground level fall. Patient got up to use the restroom and she states that while she was in the bathroom she twisted, losing her balance, landing on her left hip. She denies hitting her head, denies loss of consciousness, denies use of blood thinners. Unable to get up unassisted and unable to bear weight on her lower extremity. Related Data Home Medications Medication Instructions Recorded Confirmed loperamide 1 mg/7.5 mL oral liquid 1 mg PO DAILY PRN diarrhea #0 mL 05/07/18 06/30/24 (Imodium A-D) Probiotic 1 tab PO PRN PRN Diarrhea 03/22/20 06/30/24 cholecalciferol (vitamin D3) 100 200 mcg PO DAILY 03/22/20 06/30/24 mcg (4,000 unit) tablet melatonin 5 mg tablet 5 mg PO BEDTIME PRN insomnia 03/22/20 06/30/24 multivitamin 1 tab PO DAILY 03/22/20 06/30/24 omega-3 fatty acids 1,000 mg 1,000 mg PO DAILY 03/22/20 06/30/24 capsule (Fish Oil Concentrate) Previous Rx's Medication Instructions Recorded acetaminophen 300 mg-codeine 30 mg 1 tab PO BID PRN pain #10 tabs 10/01/21 tablet ezetimibe 10 mg tablet See Rx Instructions .Route 08/14/22 .COMPLEX #90 tabs cyclobenzaprine 10 mg tablet 10 mg PO DAILY PRN muscle spasm 04/17/23 #30 tabs levothyroxine 50 mcg tablet See Rx Instructions .Route 09/09/23 .COMPLEX #90 tabs Allergies Allergy/AdvReac Type Severity Reaction Status Date / Time meloxicam [MELOXICAM] Allergy Severe ANAPHYLAXIS Verified 04/24/23 15:58 atorvastatin [From LIPITOR] Allergy Unknown MUSCLE Verified 04/24/23 15:58 PAIN, ANKLE SWELLING levofloxacin [LEVOFLOXACIN] Allergy Unknown TENDONITIS Verified 04/24/23 15:58 Penicillins Allergy Unknown ANAPHLYAXSI Verified 04/24/23 15:58 S rifampin [RIFAMPIN] Allergy Unknown Verified 04/24/23 15:58 simvastatin [From ZOCOR] Allergy Unknown Verified 04/24/23 15:58 metoprolol [METOPROLOL] AdvReac Unknown HAIR LOSS Verified 04/24/23 15:58 NSAIDS (Non-Steroidal AdvReac Unknown BREAST Verified 04/24/23 15:58 Anti-Inflamma SWELLING [NSAIDS (NON-STEROIDAL ANTI-INFLAMMA] Review of Systems <Nixon Messina DO - Last Filed: 06/30/24 07:41> Review of Systems Narrative: See HPI Patient History <Savanah William MD - Last Filed: 06/30/24 18:54> Medical History Trigger finger, right middle finger Chronic diarrhea Chronic neck and back pain Arthritis (Unknown) Tinnitus of both ears (Unknown) History of recurrent ear infection (Unknown) Sjogren's syndrome (1998) Mumps (~1947) Chickenpox (~1947) Chronic pain syndrome (Unknown) COPD (chronic obstructive pulmonary disease) (1998) Fractures (~1980) Osteopenia (2004) Scoliosis (2015) Cataracts, bilateral (2001) Hypothyroidism (Unknown) Surgical History History of open reduction and internal fixation (ORIF) procedure (11/2017) Hx of laminectomy (Unknown) Hx of discectomy (Unknown) History of cataract removal with insertion of prosthetic lens Status post hysterectomy Family History Father Cancer Grandmother DM (diabetes mellitus screen) Mother Cancer Grandfather DM (diabetes mellitus screen) Grandfather Mental health problem Family/Other No problems noted. Social History household members: family Smoking Status: Current every day smoker Tobacco: How many years used: 59 quit status: considering quitting second hand exposure: Yes alcohol intake: current substance use type: does not use Smoking Status: Current every day smoker alcohol intake frequency: 0-2 drinks per day Substance Use Type: does not use Exam <Savanah William MD - Last Filed: 06/30/24 18:54> Initial Vital Signs Initial Vital Signs: Vital Signs Temperature 97.8 F 06/30/24 04:50 Pulse Rate 80 06/30/24 04:50 Respiratory Rate 16 06/30/24 04:50 Blood Pressure 175/75 H 06/30/24 04:50 Pulse Oximetry 100 06/30/24 04:50 Oxygen Delivery Method Room Air 06/30/24 04:50 Const: Awake, alert, no acute distress, nontoxic appearing Cardiac: regular rate, regular rhythm RESP: unlabored, clear bilaterally, no wheezing MSK: No obvious deformity, range of motion of left lower extremity limited due to pain. Left wrist atraumatic, no deformity, no reproducible tenderness to palpation Skin: Warm, Dry, intact, no rashes Neuro: AO x3, CN II-XII grossly intact, moves all extremities <Nixon Messina DO - Last Filed: 06/30/24 07:41> Initial Vital Signs Initial Vital Signs: Vital Signs Temperature 97.8 F 06/30/24 04:50 Pulse Rate 80 06/30/24 04:50 Respiratory Rate 16 06/30/24 04:50 Blood Pressure 175/75 H 06/30/24 04:50 Pulse Oximetry 100 06/30/24 04:50 Oxygen Delivery Method Room Air 06/30/24 04:50 Course <Savanah William MD - Last Filed: 06/30/24 18:54> Orders Ordered: Buspirone HCl (Buspirone 5 Mg Tablet) 5 mg PO BID [facility] Last Admin: 06/30/24 10:05 Dose: Not Given Documented By: JOHN Gabapentin (Gabapentin 100 Mg Capsule) 200 mg PO QID [facility] Last Admin: 06/30/24 16:56 Dose: Not Given Documented By: Admin: 06/30/24 12:59 Dose: Not Given Documented By: Admin: 06/30/24 10:05 Dose: Not Given Documented By: JOHN Hydromorphone HCl (Hydromorphone 0.5 Mg Inj) 0.5 mg IV Q3H PRN PRN Reason: Pain, Moderate (4-6) Last Admin: 06/30/24 12:54 Dose: 0.5 mg Documented By: Admin: 06/30/24 10:08 Dose: 0.5 mg Documented By: JOHN Lactated Ringer's (Lactated Ringers) 1,000 mls @ 42 mls/hr IV NOW ONE Stop: 07/01/24 15:41 Last Admin: 06/30/24 18:46 Dose: 42 mls/hr Documented By: Infusion: 06/30/24 18:46 Dose: Infused Documented By: Admin: 06/30/24 15:55 Dose: 42 mls/hr Documented By: HF Levothyroxine Sodium (Levothyroxine 50 Mcg Tablet) 50 mcg PO DAILY@0600 [facility] Last Admin: 06/30/24 12:55 Dose: Not Given Documented By: TLS Naloxone HCl (Naloxone 0.4 Mg/Ml Vial) 0.2 mg IV Q2MIN PRN PRN Reason: Opiate Reversal Sodium Chloride (Sodium Chloride 0.9% Flush) 10 ml IV PRN PRN PRN Reason: Flush Sodium Chloride (Sodium Chloride 0.9% Flush) 10 ml IV BID IDANIA Discontinued Medications Epinephrine HCl (Epinephrine 1 Mg/Ml) 1 mg SUBCUT NOW ONE Stop: 06/30/24 18:23 Last Admin: 06/30/24 18:26 Dose: 1 mg Documented By: PRABHJOT Acetaminophen (Ofirmev) 1,000 mg in 100 mls @ 400 mls/hr IV NOW ONE Stop: 06/30/24 05:25 Last Infusion: 06/30/24 06:23 Dose: Infused Documented By: Admin: 06/30/24 05:51 Dose: 400 mls/hr Documented By: JE Cefazolin Sodium/Dextrose (Ancef) 100 mls @ 200 mls/hr IV NOW ONE Stop: 06/30/24 18:48 Last Infusion: 06/30/24 17:50 Dose: Infused Documented By: Admin: 06/30/24 17:20 Dose: 200 mls/hr Documented By: SUNITA Gentamicin Sulfate 80 mg/ (Sodium Chloride) 102 mls @ 102 mls/hr IV NOW ONE Stop: 06/30/24 18:28 Last Admin: 06/30/24 18:28 Dose: 102 mls/hr Documented By: PRABHJOT Morphine Sulfate (Morphine 4 Mg/Ml Inj) 4 mg IV NOW ONE Stop: 06/30/24 05:12 Last Admin: 06/30/24 05:45 Dose: 4 mg Documented By: JE Morphine Sulfate (Morphine 4 Mg/Ml Inj) 4 mg IV NOW ONE Stop: 06/30/24 06:59 Last Admin: 06/30/24 07:02 Dose: 4 mg Documented By: JE Tranexamic Acid (Tranexamic Acid 1,000 Mg Vial) 2,000 mg INJ NOW ONE Stop: 06/30/24 18:21 Last Admin: 06/30/24 17:49 Dose: 1,000 mg Documented By: SUNITA Vancomycin HCl (Vancomycin 1,000 Mg Vial) 1,000 mg TOP NOW ONE Stop: 06/30/24 18:22 Last Admin: 06/30/24 18:21 Dose: 500 mg Documented By: PRABHJOT Vital Signs Vital signs: Vital Signs - 8 hr 06/30/24 04:50 06/30/24 05:25 06/30/24 05:38 Temperature 97.8 F Pulse Rate 80 79 76 Respiratory Rate 16 Blood Pressure 175/75 H Pulse Oximetry 100 100 97 Oxygen Delivery Method Room Air 06/30/24 05:50 06/30/24 05:50 Temperature Pulse Rate 84 Respiratory Rate Blood Pressure 151/67 H Pulse Oximetry 98 Oxygen Delivery Method <Nixon Messina, DO - Last Filed: 06/30/24 07:41> Orders Ordered: Buspirone HCl (Buspirone 5 Mg Tablet) 5 mg PO BID [facility] Last Admin: 06/30/24 10:05 Dose: Not Given Documented By: JOHN Gabapentin (Gabapentin 100 Mg Capsule) 200 mg PO QID [facility] Last Admin: 06/30/24 16:56 Dose: Not Given Documented By: Admin: 06/30/24 12:59 Dose: Not Given Documented By: ROBERTO CARLOS Admin: 06/30/24 10:05 Dose: Not Given Documented By: JOHN Hydromorphone HCl (Hydromorphone 0.5 Mg Inj) 0.5 mg IV Q3H PRN PRN Reason: Pain, Moderate (4-6) Last Admin: 06/30/24 12:54 Dose: 0.5 mg Documented By: ROBERTO CARLOS Admin: 06/30/24 10:08 Dose: 0.5 mg Documented By: JOHN Lactated Ringer's (Lactated Ringers) 1,000 mls @ 42 mls/hr IV NOW ONE Stop: 07/01/24 15:41 Last Admin: 06/30/24 18:46 Dose: 42 mls/hr Documented By: Infusion: 06/30/24 18:46 Dose: Infused Documented By: Admin: 06/30/24 15:55 Dose: 42 mls/hr Documented By: HF Levothyroxine Sodium (Levothyroxine 50 Mcg Tablet) 50 mcg PO DAILY@0600 [facility] Last Admin: 06/30/24 12:55 Dose: Not Given Documented By: TLS Naloxone HCl (Naloxone 0.4 Mg/Ml Vial) 0.2 mg IV Q2MIN PRN PRN Reason: Opiate Reversal Sodium Chloride (Sodium Chloride 0.9% Flush) 10 ml IV PRN PRN PRN Reason: Flush Sodium Chloride (Sodium Chloride 0.9% Flush) 10 ml IV BID IDANIA Discontinued Medications Epinephrine HCl (Epinephrine 1 Mg/Ml) 1 mg SUBCUT NOW ONE Stop: 06/30/24 18:23 Last Admin: 06/30/24 18:26 Dose: 1 mg Documented By: PRABHJOT Acetaminophen (Ofirmev) 1,000 mg in 100 mls @ 400 mls/hr IV NOW ONE Stop: 06/30/24 05:25 Last Infusion: 06/30/24 06:23 Dose: Infused Documented By: Admin: 06/30/24 05:51 Dose: 400 mls/hr Documented By: JE Cefazolin Sodium/Dextrose (Ancef) 100 mls @ 200 mls/hr IV NOW ONE Stop: 06/30/24 18:48 Last Infusion: 06/30/24 17:50 Dose: Infused Documented By: Admin: 06/30/24 17:20 Dose: 200 mls/hr Documented By: SUNITA Gentamicin Sulfate 80 mg/ (Sodium Chloride) 102 mls @ 102 mls/hr IV NOW ONE Stop: 06/30/24 18:28 Last Admin: 06/30/24 18:28 Dose: 102 mls/hr Documented By: PRABHJOT Morphine Sulfate (Morphine 4 Mg/Ml Inj) 4 mg IV NOW ONE Stop: 06/30/24 05:12 Last Admin: 06/30/24 05:45 Dose: 4 mg Documented By: JE Morphine Sulfate (Morphine 4 Mg/Ml Inj) 4 mg IV NOW ONE Stop: 06/30/24 06:59 Last Admin: 06/30/24 07:02 Dose: 4 mg Documented By: JE Tranexamic Acid (Tranexamic Acid 1,000 Mg Vial) 2,000 mg INJ NOW ONE Stop: 06/30/24 18:21 Last Admin: 06/30/24 17:49 Dose: 1,000 mg Documented By: SUNITA Vancomycin HCl (Vancomycin 1,000 Mg Vial) 1,000 mg TOP NOW ONE Stop: 06/30/24 18:22 Last Admin: 06/30/24 18:21 Dose: 500 mg Documented By: PRABHJOT Vital Signs Vital signs: Vital Signs - 8 hr 06/30/24 04:50 06/30/24 05:25 06/30/24 05:38 Temperature 97.8 F Pulse Rate 80 79 76 Respiratory Rate 16 Blood Pressure 175/75 H Pulse Oximetry 100 100 97 Oxygen Delivery Method Room Air 06/30/24 05:50 06/30/24 05:50 Temperature Pulse Rate 84 Respiratory Rate Blood Pressure 151/67 H Pulse Oximetry 98 Oxygen Delivery Method MDM - Fall <Savanah William MD - Last Filed: 06/30/24 18:54> Lab Data 06/30/24 05:40 06/30/24 05:40 Labs: Lab Results 06/30/24 Range/Units 05:40 WBC 10.9 (4.5-11.0) X10^3/uL RBC 4.44 (4.0-5.2) X10^6/uL Hgb 14.6 (12.0-16.0) g/dL Hct 42.5 (36-46) % MCV 95.7 (80-100) fL MCH 32.8 (26-34) PG MCHC 34.2 (30-36) % RDW 14.5 (11.6-14.8) % Plt Count 191 (150-400) X10^3/uL Neut % (Auto) 72.2 (50-75) % Lymph % (Auto) 20.6 L (25-40) % Rock % (Auto) 5.5 (3-14) % Eos % (Auto) 1.0 L (2-4) % Baso % (Auto) 0.7 (0-2) % Neut # (Auto) 7900 H (8819-6273) /uL Lymph # (Auto) 2200 (1511-3929) /uL [place] # (Auto) 600 (0-900) /uL Eos # (Auto) 100 (0-450) /uL Baso # (Auto) 100 (0-100) /uL PT 11.5 (9.4-12.5) SECONDS INR 1.0 (0.9-1.3) Sodium 142 (137-145) mmol/L Potassium 4.0 (3.4-5.1) mmol/L Chloride 109 H (98-107) mmol/L Carbon Dioxide 27 (22-32) mmol/L BUN 16 (7-17) mg/dL Creatinine 0.70 (0.52-1.04) mg/dL Estimated GFR > 60 (>60) mL/min BUN/Creatinine Ratio 22.9 H (6-22) Glucose 96 (80-110) mg/dL Calcium 9.4 (8.4-10.2) mg/dL Total Bilirubin 0.7 (0.2-1.3) mg/dL AST 34 (14-36) IU/L ALT 26 (<35) IU/L Alkaline Phosphatase 74 (38-126) U/L Total Protein 7.4 (6.3-8.2) g/dL Albumin 4.7 (3.5-5.0) g/dL Globulin 2.7 (1.7-4.1) g/dL Albumin/Globulin Ratio 1.7 (1.0-2.8) Blood Type O Positive Antibody Screen Negative [facility] Narrative Medical decision making narrative: Ground level fall with left wrist and left hip pain. Suspect underlying fracture due to inability to bear weight in extreme pain with movement. X-ray imaging confirmed femoral neck fracture of left hip. Left wrist x-ray unremarkable. Laboratory work reviewed, no significant lab derangements. A preoperative chest x-ray was ordered which is suggestive of right middle lobe pneumonia, however patient denies having any respiratory symptoms. Attempted to admit patient to night hospitalist, however he deferred admission to daytime service. Care of patient is signed out to Dr. Messina at 0700 Dr Messina: Received turned over from Dr. William who did the initial evaluation. Patient has a left femoral neck fracture. This does appear to be a mechanical fall. Per Dr. William's report Dr. Weber with orthopedic surgery is aware and a plan to take the patient to the operating room today. I discussed the case with Dr. Gil hospitalist on-call who will admit for further evaluation and treatment. <Nixon Messina, DO - Last Filed: 06/30/24 07:41> Medical Records Attestation: I reviewed the patient's medical records. Lab Data Attestation: I reviewed the patient's lab results. Labs: Lab Results 06/30/24 Range/Units 05:40 WBC 10.9 (4.5-11.0) X10^3/uL RBC 4.44 (4.0-5.2) X10^6/uL Hgb 14.6 (12.0-16.0) g/dL Hct 42.5 (36-46) % MCV 95.7 (80-100) fL MCH 32.8 (26-34) PG MCHC 34.2 (30-36) % RDW 14.5 (11.6-14.8) % Plt Count 191 (150-400) X10^3/uL Neut % (Auto) 72.2 (50-75) % Lymph % (Auto) 20.6 L (25-40) % Rock % (Auto) 5.5 (3-14) % Eos % (Auto) 1.0 L (2-4) % Baso % (Auto) 0.7 (0-2) % Neut # (Auto) 7900 H (3192-1635) /uL Lymph # (Auto) 2200 (8864-1089) /uL Rock # (Auto) 600 (0-900) /uL Eos # (Auto) 100 (0-450) /uL Baso # (Auto) 100 (0-100) /uL PT 11.5 (9.4-12.5) SECONDS INR 1.0 (0.9-1.3) Sodium 142 (137-145) mmol/L Potassium 4.0 (3.4-5.1) mmol/L Chloride 109 H (98-107) mmol/L Carbon Dioxide 27 (22-32) mmol/L BUN 16 (7-17) mg/dL Creatinine 0.70 (0.52-1.04) mg/dL Estimated GFR > 60 (>60) mL/min BUN/Creatinine Ratio 22.9 H (6-22) Glucose 96 (80-110) mg/dL Calcium 9.4 (8.4-10.2) mg/dL Total Bilirubin 0.7 (0.2-1.3) mg/dL AST 34 (14-36) IU/L ALT 26 (<35) IU/L Alkaline Phosphatase 74 (38-126) U/L Total Protein 7.4 (6.3-8.2) g/dL Albumin 4.7 (3.5-5.0) g/dL Globulin 2.7 (1.7-4.1) g/dL Albumin/Globulin Ratio 1.7 (1.0-2.8) Blood Type O Positive Antibody Screen Negative MDM Narrative Medical decision making narrative: Dr Messina: Received turned over from Dr. William who did the initial evaluation. Patient has a left femoral neck fracture. This does appear to be a mechanical fall. Per Dr. William's report Dr. Weber with orthopedic surgery is aware and a plan to take the patient to the operating room today. I discussed the case with Dr. Gil hospitalist on-call who will admit for further evaluation and treatment. Discharge Plan Departure Patient Disposition: Admitted As Inpatient Clinical Impression: Fracture of femoral neck, left, Acute pain of left wrist, Fall from ground level Admit Date/Time: 06/30/24 08:02 Admit Provider: Stefano Gil
--- NOTE | 2024-06-30 05:11 | DI.RAD.S_ITS ---
PROCEDURE: XR WRIST LT 2V INDICATIONS: GLF, WRIST PAIN TECHNIQUE: 2 views of the wrist were acquired. COMPARISON: None. FINDINGS: Bones: No fractures or dislocations. No suspicious bony lesions. Arthritic changes are present. Soft tissues: No suspicious soft tissue calcifications. IMPRESSION: No visualized acute fracture or dislocation. However, if clinical concern and/or pain persist, short interval imaging followup in 7-10 days is recommended, as occult injury cannot be definitively excluded. The above findings are concordant with preliminary report. Dictated by: Elena Lai M.D. on 06/30/2024 at 9:35 Approved by: Elena Lai M.D. on 06/30/2024 at 9:35
--- NOTE | 2024-06-30 05:12 | DI.RAD.S_ITS ---
PROCEDURE: XR CHEST 1V INDICATIONS: preop TECHNIQUE: One view of the chest was acquired. COMPARISON: [facility], CR, XR CHEST 2V, 10/08/2021, 10:39. FINDINGS: Surgical changes and devices: None. Lungs and pleura: Focal right mid/lower lobe opacity is present.. Mediastinum: Mediastinal contours appear normal. Heart size is normal. Bones and chest wall: No suspicious bony lesions. Overlying soft tissues appear unremarkable. IMPRESSION: Focal mid/lower lobe opacities suggestive of pneumonia. Dictated by: Elena Lai M.D. on 06/30/2024 at 9:34 Approved by: Elena Lai M.D. on 06/30/2024 at 9:34
[2024-06-30] MEDS: MORPHINE 4 MG/ML INJ IV ×2 (05:45→07:02)
[2024-06-30 05:47] LABS: Add Manual Diff / Slide Review NO; Basophils Absolute Auto 100 /uL (0-100); Basophils Percent Auto 0.7 % (0-2); Eosinophils Absolute Auto 100 /uL (0-450); Hematocrit 42.5 % (36-46); Hemoglobin 14.6 g/dL (12.0-16.0); Lymphocytes Absolute Auto 2200 /uL (1100-4500); Lymphocytes Percent Auto 20.6 % (25-40); Mean Corpuscular HGB Conc 34.2 % (30-36); Mean Corpuscular Hemoglobin 32.8 PG (26-34); Mean Corpuscular Volume 95.7 fL (80-100); Monocytes Absolute Auto 600 /uL (0-900); Monocytes Percent Auto 5.5 % (3-14); Neutrophils Absolute Auto 7900 /uL (1500-7000); Neutrophils Percent Auto 72.2 % (50-75); Platelet Count 191 X10^3/uL (150-400); Red Blood Cell Count 4.44 X10^6/uL (4.0-5.2); Red Cell Distribution Width 14.5 % (11.6-14.8); White Blood Cell Count 10.9 X10^3/uL (4.5-11.0)
[2024-06-30] MEDS: ACETAMINOPHEN IV 1,000 MG/100 ML VIAL 400 MG IV (05:51)
[2024-06-30 05:58] LABS: Prothrombin Time 11.5 SECONDS (9.4-12.5)
[2024-06-30 06:01] LABS: Alanine Aminotransferase 26 IU/L (<35); Albumin 4.7 g/dL (3.5-5.0); Albumin Globulin Ratio 1.7 (1.0-2.8); Alkaline Phosphatase 74 U/L (38-126); Aspartate Aminotransferase 34 IU/L (14-36); BUN Creatinine Ratio 22.9 (6-22); Bilirubin Total 0.7 mg/dL (0.2-1.3); Blood Urea Nitrogen 16 mg/dL (7-17); Calcium 9.4 mg/dL (8.4-10.2); Carbon Dioxide 27 mmol/L (22-32); Chloride 109 mmol/L (98-107); Estimated Glomerular Filt Rate > 60 mL/min (>60); Globulin 2.7 g/dL (1.7-4.1); Glucose 96 mg/dL (80-110); HEMOLYSIS 36 (0-50); Sodium 142 mmol/L (137-145); Total Protein 7.4 g/dL (6.3-8.2)
--- NOTE | 2024-06-30 08:56 | P.HP_ITS ---
History of Present Illness History of Present Illness Chief complaint: GLF/Wrist Pain Narrative: 84 y.o. F with history of hypothyroidism and presenting after mechanical ground level fall resulting in L femoral neck fracture. Patient was experiencing some minor pain the left hip area but was otherwise doing well. Ortho was consulted on admission and plan to take her to the OR possibly this afternoon. [facility] Medical History Trigger finger, right middle finger Chronic diarrhea Chronic neck and back pain Arthritis (Unknown) Tinnitus of both ears (Unknown) History of recurrent ear infection (Unknown) Sjogren's syndrome (1998) Mumps (~1947) Chickenpox (~1947) Chronic pain syndrome (Unknown) COPD (chronic obstructive pulmonary disease) (1998) Fractures (~1979) Osteopenia (2004) Scoliosis (2015) Cataracts, bilateral (2001) Hypothyroidism (Unknown) Surgical History History of open reduction and internal fixation (ORIF) procedure (11/2017) Hx of laminectomy (Unknown) Hx of discectomy (Unknown) History of cataract removal with insertion of prosthetic lens Status post hysterectomy Family History Father Cancer Grandmother DM (diabetes mellitus screen) Mother Cancer Grandfather DM (diabetes mellitus screen) Grandfather Mental health problem Family/Other No problems noted. Social History household members: family Smoking Status: Current every day smoker Tobacco: How many years used: 59 quit status: considering quitting second hand exposure: Yes alcohol intake: current substance use type: does not use Meds Home Medications and Allergies Home Medications Medication Instructions Recorded Confirmed Type loperamide 1 mg/7.5 mL oral liquid 1 mg PO DAILY PRN diarrhea #0 mL 05/07/18 06/30/24 History (Imodium A-D) Probiotic 1 tab PO PRN PRN Diarrhea 03/22/20 06/30/24 History cholecalciferol (vitamin D3) 100 200 mcg PO DAILY 03/22/20 06/30/24 History mcg (4,000 unit) tablet melatonin 5 mg tablet 5 mg PO BEDTIME PRN insomnia 03/22/20 06/30/24 History multivitamin 1 tab PO DAILY 03/22/20 06/30/24 History omega-3 fatty acids 1,000 mg 1,000 mg PO DAILY 03/22/20 06/30/24 History capsule (Fish Oil Concentrate) acetaminophen 300 mg-codeine 30 mg 1 tab PO BID PRN pain #10 tabs 10/01/21 06/30/24 Rx tablet ezetimibe 10 mg tablet See Rx Instructions .Route 08/14/22 06/30/24 Rx .COMPLEX #90 tabs cyclobenzaprine 10 mg tablet 10 mg PO DAILY PRN muscle spasm 04/17/23 06/30/24 Rx #30 tabs levothyroxine 50 mcg tablet See Rx Instructions .Route 09/09/23 06/30/24 Rx .COMPLEX #90 tabs Allergies Allergy/AdvReac Type Severity Reaction Status Date / Time meloxicam [MELOXICAM] Allergy Severe ANAPHYLAXIS Verified 04/24/23 15:58 atorvastatin [From LIPITOR] Allergy Unknown MUSCLE Verified 04/24/23 15:58 PAIN, ANKLE SWELLING levofloxacin [LEVOFLOXACIN] Allergy Unknown TENDONITIS Verified 04/24/23 15:58 Penicillins Allergy Unknown ANAPHLYAXSI Verified 04/24/23 15:58 S rifampin [RIFAMPIN] Allergy Unknown Verified 04/24/23 15:58 simvastatin [From ZOCOR] Allergy Unknown Verified 04/24/23 15:58 metoprolol [METOPROLOL] AdvReac Unknown HAIR LOSS Verified 04/24/23 15:58 NSAIDS (Non-Steroidal AdvReac Unknown BREAST Verified 04/24/23 15:58 Anti-Inflamma SWELLING [NSAIDS (NON-STEROIDAL ANTI-INFLAMMA] Review of Systems Review of Systems ROS: Yes All systems reviewed with the patient and are negative except as otherwise documented Exam Vital Signs (past 8 hours): - 06/30/24 04:50 06/30/24 05:25 06/30/24 05:38 Temperature 97.8 F Pulse Rate 80 79 76 Respiratory Rate 16 Blood Pressure 175/75 H Pulse Oximetry 100 100 97 Oxygen Delivery Method Room Air 06/30/24 05:50 06/30/24 05:50 06/30/24 06:00 Temperature Pulse Rate 84 85 Respiratory Rate Blood Pressure 151/67 H Pulse Oximetry 98 97 Oxygen Delivery Method 06/30/24 06:30 06/30/24 07:00 09/10/24 07:30 Temperature Pulse Rate 75 76 88 Respiratory Rate Blood Pressure Pulse Oximetry 97 98 97 Oxygen Delivery Method Oxygen Delivery Method Room Air Const General: healthy appearing and comfortable Resp Effort & Inspection: normal respiratory effort and able to speak in complete sentences Auscultation: clear to auscultation bilaterally Cardio Rate: regular rate Rhythm: regular rhythm GI Inspection: normal to inspection Skin General: no rashes or lesions noted Neuro General: patient alert, patient awake and patient oriented x3 Cranial Nerves: CN's II-XI intact bilaterally Extrem Other: moving all extremities, strength 5/5 in all limbs. Objective Labs 06/30/24 05:40 06/30/24 05:40 Labs: Laboratory Results - last 24 hr 06/30/24 05:40 WBC 10.9 RBC 4.44 Hgb 14.6 Hct 42.5 MCV 95.7 MCH 32.8 MCHC 34.2 RDW 14.5 Plt Count 191 Neut % (Auto) 72.2 Lymph % (Auto) 20.6 L [place] % (Auto) 5.5 Eos % (Auto) 1.0 L Baso % (Auto) 0.7 Neut # (Auto) 7900 H Lymph # (Auto) 2200 [place] # (Auto) 600 Eos # (Auto) 100 Baso # (Auto) 100 PT 11.5 INR 1.0 Sodium 142 Potassium 4.0 Chloride 109 H Carbon Dioxide 27 BUN 16 Creatinine 0.70 Estimated GFR > 60 BUN/Creatinine Ratio 22.9 H Glucose 96 Calcium 9.4 Total Bilirubin 0.7 AST 34 ALT 26 Alkaline Phosphatase 74 Total Protein 7.4 Albumin 4.7 Globulin 2.7 Albumin/Globulin Ratio 1.7 Blood Type O Positive Antibody Screen Negative Assessment & Plan Assessment & Plan narrative: #Mechanical Fall with resulting left femoral neck fracture There is discordance with Xray report, one says left femoral neck fx other report says no fx present. will need to clarify with radiology RCRI of 0. Patient has no medical contra-indication to surgical fix of her fracture and can proceed if indicated. -Ortho following, possible going to OR later today -NPO -0.5mg IV Dilaudid for pain -PT/OT when appropriate Home Med Rec -continue home levothyroxine DVT PPx: SCD CODE: millstone cleaner-Based Coding :: [TOTAL MINUTES] spent with patient and on the chart (including review of chart, obtaining history, exam, reviewing outside data, placing orders, documenting exam and treatment plan, and counseling patient) on [DATE].
[2024-06-30] MEDS: HYDROMORPHONE 0.5 MG INJ IV ×2 (10:08→12:54)
--- NOTE | 2024-06-30 15:48 | PC.NURSE ---
Patient picked up by pre op for procedure.
[2024-06-30] MEDS: LACTATED RINGERS 1,000 ML 42 ML IV ×2 (15:55→18:46)
--- NOTE | 2024-06-30 16:16 | PM.HP.1 ---
History of Present Illness History of Present Illness Chief complaint: GLF/Wrist Pain Narrative: HPI: Shanda Tafoya is an 84-year-old female currently admitted after a fall. She reports experiencing severe pain in her left hip following the fall. She denies previous use of a walker or cane but was considering it prior to the incident. She notes high cholesterol and spinal stenosis as part of her medical history. She has no history of heart attacks, strokes, congestive heart failure, or cancer. Prior to the fall, she was living independently with her family, including grandkids and great-grandkids. SOCIAL HISTORY: - Lives with family, including grandkids and great-grandkids - No use of ambulatory aids prior to the fall PERTINENT PMH: - High cholesterol - Spinal stenosis PRIOR HIP/KNEE PROCEDURES: None PHYSICAL EXAM: Hip Exam: - Examination: Radiographs demonstrate a displaced left femoral neck fracture with underlying pre-existing arthritic changes in the left hip. RADIOLOGY Images independently reviewed and interpreted: 1. Left Hip ? AP pelvis and lateral hip demonstrate a displaced left femoral neck fracture 2. Left Wrist ? 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 PLAN: I discussed with the patient and her family that the best course of action is a total hip arthroplasty given her overall good health and active lifestyle. This will provide a more durable solution compared to a hemiarthroplasty, which is at risk of wearing out her hip socket in 3-5 years due to the metal head rubbing against the cartilage of her curyung hip socket. - Perform total hip arthroplasty for the displaced left femoral neck fracture with a cemented stem - Recommend starting osteoporosis medication post-surgery through her primary care provider - Plan for full weight-bearing and mobilization with physical therapy starting tomorrow - Consideration for discharge to a rehab facility based on her postoperative functional status and family support at home - Wrist brace only for the small fracture of the tip of the left radial styloid. Can utilize that wrist for ambulation with a walker if she is able to tolerate it [facility] Medical History Trigger finger, right middle finger Chronic diarrhea Chronic neck and back pain Arthritis (Unknown) Tinnitus of both ears (Unknown) History of recurrent ear infection (Unknown) Sjogren's syndrome (1998) Mumps (~1947) Chickenpox (~1947) Chronic pain syndrome (Unknown) COPD (chronic obstructive pulmonary disease) (1998) Fractures (~1980) Osteopenia (2004) Scoliosis (2016) Cataracts, bilateral (2001) Hypothyroidism (Unknown) Surgical History History of open reduction and internal fixation (ORIF) procedure (11/2017) Hx of laminectomy (Unknown) Hx of discectomy (Unknown) History of cataract removal with insertion of prosthetic lens Status post hysterectomy Family History Father Cancer Grandmother DM (diabetes mellitus screen) Mother Cancer Grandfather DM (diabetes mellitus screen) Grandfather Mental health problem Family/Other No problems noted. Social History household members: family Smoking Status: Current every day smoker Tobacco: How many years used: 59 quit status: considering quitting second hand exposure: Yes alcohol intake: current substance use type: does not use Meds Home Medications and Allergies Home Medications Medication Instructions Recorded Confirmed Type loperamide 1 mg/7.5 mL oral liquid 1 mg PO DAILY PRN diarrhea #0 mL 05/07/18 06/30/24 History (Imodium A-D) Probiotic 1 tab PO PRN PRN Diarrhea 03/22/20 06/30/24 History cholecalciferol (vitamin D3) 100 200 mcg PO DAILY 03/22/20 06/30/24 History mcg (4,000 unit) tablet melatonin 5 mg tablet 5 mg PO BEDTIME PRN insomnia 03/22/20 06/30/24 History multivitamin 1 tab PO DAILY 03/22/20 06/30/24 History omega-3 fatty acids 1,000 mg 1,000 mg PO DAILY 03/22/20 06/30/24 History capsule (Fish Oil Concentrate) acetaminophen 300 mg-codeine 30 mg 1 tab PO BID PRN pain #10 tabs 10/01/21 06/30/24 Rx tablet ezetimibe 10 mg tablet See Rx Instructions .Route 08/14/22 06/30/24 Rx .COMPLEX #90 tabs cyclobenzaprine 10 mg tablet 10 mg PO DAILY PRN muscle spasm 04/17/23 06/30/24 Rx #30 tabs levothyroxine 50 mcg tablet See Rx Instructions .Route 09/09/23 06/30/24 Rx .COMPLEX #90 tabs Allergies Allergy/AdvReac Type Severity Reaction Status Date / Time meloxicam [MELOXICAM] Allergy Severe ANAPHYLAXIS Verified 04/24/23 15:58 atorvastatin [From LIPITOR] Allergy Unknown MUSCLE Verified 04/24/23 15:58 PAIN, ANKLE SWELLING levofloxacin [LEVOFLOXACIN] Allergy Unknown TENDONITIS Verified 04/24/23 15:58 Penicillins Allergy Unknown ANAPHLYAXSI Verified 04/24/23 15:58 S rifampin [RIFAMPIN] Allergy Unknown Verified 04/24/23 15:58 simvastatin [From ZOCOR] Allergy Unknown Verified 04/24/23 15:58 metoprolol [METOPROLOL] AdvReac Unknown HAIR LOSS Verified 04/24/23 15:58 NSAIDS (Non-Steroidal AdvReac Unknown BREAST Verified 04/24/23 15:58 Anti-Inflamma SWELLING [NSAIDS (NON-STEROIDAL ANTI-INFLAMMA] Exam Vital Signs (past 8 hours): - 06/30/24 16:01 Temperature 98.5 F Pulse Rate 75 Respiratory Rate 18 Blood Pressure 125/55 L Pulse Oximetry 96 Oxygen Delivery Method Room Air Oxygen Delivery Method Room Air Objective Labs 06/30/24 05:40 06/30/24 05:40 Labs: Laboratory Results - last 24 hr 06/30/24 05:40 WBC 10.9 RBC 4.44 Hgb 14.6 Hct 42.5 MCV 95.7 MCH 32.8 MCHC 34.2 RDW 14.5 Plt Count 191 Neut % (Auto) 72.2 Lymph % (Auto) 20.6 L Villalba % (Auto) 5.5 Eos % (Auto) 1.0 L Baso % (Auto) 0.7 Neut # (Auto) 7900 H Lymph # (Auto) 2200 Villalba # (Auto) 600 Eos # (Auto) 100 Baso # (Auto) 100 PT 11.5 INR 1.0 Sodium 142 Potassium 4.0 Chloride 109 H Carbon Dioxide 27 BUN 16 Creatinine 0.70 Estimated GFR > 60 BUN/Creatinine Ratio 22.9 H Glucose 96 Calcium 9.4 Total Bilirubin 0.7 AST 34 ALT 26 Alkaline Phosphatase 74 Total Protein 7.4 Albumin 4.7 Globulin 2.7 Albumin/Globulin Ratio 1.7 Blood Type O Positive Antibody Screen Negative Assessment & Plan Time-Based Coding :: [TOTAL MINUTES] spent with patient and on the chart (including review of chart, obtaining history, exam, reviewing outside data, placing orders, documenting exam and treatment plan, and counseling patient) on [DATE]. Quality VTE Deep Vein Thrombosis/Pulmonary Embolism Present on Admission: No
[2024-06-30] MEDS: CEFAZOLIN 2 GM/100 ML PREMIX 100 ML IV (17:20)
[2024-06-30] MEDS: TRANEXAMIC ACID 1,000 MG VIAL 2000 MG INJ ×2 (17:49→18:56)
--- NOTE | 2024-06-30 18:06 | SUR.OPER ---
Supine on padded [place] table with bilateral legs secured in padded positioning boots and suspended in positioning spars, operative leg in traction per surgeon. Head on one pillow. Arm on non-operative side secured on padded armboard <90 degrees abduction. Arm on operative side padded and resting across chest then secured with tape over sheet. Padded perineal post in place per surgeon.
[2024-06-30] MEDS: ROPIVACAINE/EPI/CLONIDINE/KET 50 ML SYRINGE INJ (18:17)
[2024-06-30] MEDS: VANCOMYCIN 1,000 MG VIAL 1000 MG TOP (18:21)
[2024-06-30] MEDS: EPINEPHrine 1 MG/ML SUBCUT (18:26)
[2024-06-30] MEDS: GENTAMICIN 80 MG in SODIUM CHLORIDE 0.9% 100 ML 102 MG IV (18:28)
--- NOTE | 2024-06-30 19:33 | P.OP_ITS ---
Operative Date/Time/Diagnoses Date of procedure: 06/30/24 Pre-op diagnosis: Left femoral neck fracture Post-op diagnosis: same Procedure & Clinicians Procedure: Left total hip arthroplasty through anterior approach with cemented stem and un cemented acetabular component Same procedure as scheduled: Yes Surgeon: James Weber Click Yes if Unassisted: Yes Anesthesia Type: General and Local Operative Notes Estimated Blood Loss (mL): 200 Procedure in detail: Left Hybrid Direct Anterior Depuy Total Hip Arthroplasty with Uncemented Acetabular Component and Cemented Femoral Component: Implants: * Vang and nephew R3 size 54 cup?with 2 screws * Polar stem cemented femoral stem size 2 standard offset? * 36 mm-3 Oxinium femoral head? Procedure Summary: This 84-year-old female patient is relatively active and healthy for her age therefore I recommended total hip arthroplasty for her femoral neck fracture to limit the long-term risk of acetabular erosion. She is a smoker so I used a negative incisional wound VAC dressing device, placed calcium sulfate antibiotic pellets in the wound, placed powdered vancomycin in the wound. I did note during broaching that her femoral neck fracture had extended down below the area where I had made a freshening neck cut. I was able to palpate the distal extent of that, and found that it was a wedge which terminated in the lesser trochanter. As I was utilizing a Maltese paradox cemented stem fixation I was able to bypass that area residual fracture involvement and achieve fixation more distally. The piece remained in place while cement dried and I therefore left it in place. Procedure in Detail: This patient was seen preoperatively and evaluated for hip pain which was refractory to numerous nonoperative treatment modalities. Their hip pain correlated with radiographic changes demonstrating significant degeneration in the hip joint. The risks and benefits of continued nonoperative management versus operative management were discussed at length and all of the patient?s questions were answered. Additional educational materials providing further details beyond our discussion in clinic were provided via a publicly available patient education video which included the incidence of medical complications associated with total hip arthroplasty, reasons for revision following total hip arthroplasty, and patient satisfaction rates following total hip arthroplasty. That video can be accessed at [email or web address] . With this understanding of the risks inherent to the procedure, the patient elected to move forward with operative management. Following preoperative optimization, the patient was scheduled for surgery. The patient was met in the preoperative holding area the day of the procedure and all questions were answered. The patient?s nares were swabbed with betadine in order to decolonize them from MRSA. Informed consent was signed and the left limb was marked with indelible ink.? The patient was brought back to the operating room where anesthesia was induced. The patient was transferred to the [place] table and all bony prominences were padded. The operative site was prepped and draped in the usual sterile fashion. Prior to incision, tranexamic acid and cefazolin were administered. Operative templating images were displayed demonstrating the anticipated implant sizes and correct operative extremity. A timeout procedure was performed verifying the patient?s identity, medical comorbidities, allergies, relevant medications, anesthesia type and the surgical plan. All present were in agreement. The assistance of a physician recovery assistant was required for positioning, room setup, soft tissue retraction and wound closure. Without this assistance, the procedure would have been significantly more challenging and time consuming.?? A direct anterior approach to the hip was utilized. This was performed with a longitudinal incision through a Heuter interval. The incision was planned 2 cm distal and 2 cm lateral to the ASIS extending towards the lateral patella, in line with the muscle body of the TFL. Following incision, the subcutaneous tissue was dissected while taking care to avoid injury to the lateral femoral cutaneous nerve. The fascia overlying the TFL was identified by dissecting off the overlying fat and identifying perforating vessels to the TFL. The TFL fascia was incised and dissected away from the medial border of the TFL. A cobra retractor was placed over the superior femoral neck between the abductors and the hip capsule and used to reflect the TFL laterally. A [place] self-retainer was then placed in the distal aspect of the wound between the TFL and the rectus femoris. This was tensioned to open up the direct anterior interval and the lateral circumflex vessels were identified and coagulated using electrocautery. The floor of the TFL fascia was incised, exposing the pericapsular fat overlying the hip capsule. A second cobra retractor was placed on the inferior femoral neck. A double-bent soft tissue retractor was placed on the anterior wall of the acetabulum and used to tension the reflected head of rectus femoris, which was then released in order to limit soft tissue tension. A capsulotomy was made in the midline of the anterior hip capsule in line with the femoral neck ending at the vastus tubercle. The double-bent retractor was removed in order to limit the amount of time that a soft tissue retractor remained on the anterior wall and protect the femoral nerve. Tag stitches were placed in the superior and inferior leaflets of the hip capsule. An Jalil soft tissue retractor was introduced over the tag stitches and tensioned in the interval between the rectus femoris and the TFL in order to retract and protect those muscles. The cobra retractors were replaced intracapsularly, with one over the superior neck in the pocket created by the base of the greater trochanter and the other on the femoral head. The capsulotomy was extended laterally to the base of the greater trochanter and medially to the lesser trochanter. This required externally rotating the hip. Once the lesser trochanter had been identified, a neck cut was planned according to measurements from preoperative templating. A ruler was cut at the length measured between the superior aspect of the lesser trochanter and the collar of the prosthesis. This line was extended towards the inferior aspect of the lateral cobra retractor to plan a cut which would leave minimal residual femoral neck laterally. The neck was cut at 60 degrees of external rotation along that line. A second cut was performed to remove a large napkin ring and facilitate head extraction. The napkin ring cut and femoral head were removed.?? A broad anterior wall retractor was placed between the labrum and the anterior capsule so that the anterior capsule would prevent capturing and pinching the femoral nerve anteriorly. An additional retractor was placed on the posterior wall. External rotation and traction were applied through the [place] table so that the cut surface of the femoral neck would not restrict access to the acetabulum. The labrum was excised sharply and the pulvinar was excised with electrocautery to limit bleeding from branches of the obturator artery. Acetabular reamers were selected based on preoperative templating and measurements of the excised femoral head. These were introduced into the acetabulum. Fluoroscopy was utilized to replicate a standing AP pelvis radiograph by centering over the pelvis, rotating until there was appropriate symmetry between the obturator foramen, and introducing caudal tilt to match the position of the pubic symphysis relative to the sacrococcygeal junction according to the patient?s anatomy. Fluoroscopy was utilized to ensure appropriate reaming depth. Once satisfied with the reaming depth corresponding to the preoperative template and the pinch fit between the columns, an appropriate sized acetabular cup was selected which would provide 1 mm of press-fit. This cup was introduced and manipulated until appropriate abduction and anteversion angles were obtained with careful attention to appropriate abduction and anteversion angles as evaluated by the position of the cup relative to the anterior and posterior sepulveda of the acetabulum and the AP fluoroscopy which recreated the patient?s standing radiograph. The cup was impacted into place. Two screws were placed to provide additional fixation. Peripheral osteophytes were removed. The acetabular liner was then placed with care to ensure locking of the locking mechanism.? Attention was then turned to the femur. All retractors were removed, traction was released, a retractor was placed in the interval between the hip capsule and the gluteus minimus, and the hip was externally rotated to 90 degrees. Traction was applied through the [place] table to tension the lateral capsule and this was released using electrocautery. Traction was released and a [place] hook was placed posteriorly around the proximal femur at the level of the vastus ridge. The table height was lowered in order to restrict the tension on the anterior structures during hip hyperextension to limit the risk of femoral nerve palsy. With traction off and the hip at 90 degrees of external rotation, the hip was hyperextended and adducted while manually elevating the femur away from the acetabulum with the [place] hook to ensure it would not be caught behind the greater trochanter. An asymmetric retractor was placed over the calcar and a broad double-pronged retractor was placed over the greater trochanter. The tag stitch capturing the lateral leaflet of the capsule was moved to the medial side, leaving the conjoined and piriformis tendons isolated in the face of the greater trochanter. The hip was externally rotated and elevated. A release of the conjoined tendon was utilized in order to obtain adequate exposure for broaching and minimize the risk of fracture propagation. The canal was opened with an opening broach and a rasp was used to remove cancellous bone. A rongeur was used to remove the residual lateral bone at the base of the greater trochanter to avoid placing the stem in varus. The femur was then broached to the appropriate sized stem yielding good rotational fit and fill of the canal as well as appropriate version of the stem trial. Neck and head trials were placed, all retractors were removed and the hip was returned to neutral abduction and extension. I then reduced the hip. Initial trialing was performed with a size 2 broach, a standard offset neck and a -3 head. I initially manually externally rotated the hip and found no instability. I then locked the hip in 45 degrees of external rotation and dropped it to the floor with traction off which demonstrated no instability. An AP pelvis fluoroscopic image matching the preoperative standing radiograph with both lesser trochanters visible and both hips in 40 degrees of external rotation demonstrated that the operative site was slightly long and that offset was appropriate. AP and lateral hip fluoroscopic images were obtained to evaluate the broach size which demonstrated appropriate canal fill. The hip was dislocated and I returned to the broaching position. Based on my evaluation during initial trialing I planned to place these definitive implants as it would not be possible for me to achieve a smaller construct. I felt that the operative site was slightly but acceptably long, approximately 3 mm. I also noted that she had some slight arthritis on her contralateral hip which could have led to relative shortening on that side. I then returned to the broaching position and prepared for cementation. Prior to cementation I irrigated the canal, placed a cement restrictor, irrigated the canal again, placed epinephrine-soaked vaginal packing with a whistle-tip catheter, and removed the whistle-tip catheter after insertion of cement. Cement was allowed to dry. The definitive stem was placed and the trunnion was cleaned and dried. I placed a ceramic head onto the trunnion and impacted it into place on the Shin taper.?? All retractors were removed and the hip was reduced. A dilute mixture of betadine and peroxide was used to bathe the soft tissues during final fluoroscopic assessment. Appropriate component positioning was confirmed on an AP pelvis radiograph with the operative and nonoperative legs in 40 degrees of external rotation, evaluating leg length and offset. Appropriate stem fill was evaluated on AP and lateral hip radiographs. No fractures were identified on these radiographs. There was no hip instability with maximum (115?) external rotation as well as a 45 degree drop test. The hip was copiously irrigated with pulse lavage. The capsule was closed with absorbable interrupted suture. The TFL fascia was closed with barbed suture while carefully protecting the lateral femoral cutaneous nerve from entrapment. A mixture of Ropivacaine, Epinephrine, Clonidine and Toradol was infiltrated throughout the soft tissues. The skin was closed with 2-0 and 3-0 sutures. Surgical glue was applied and a soft dressing was placed.??The sponge, instrument and needle counts were reported as being correct at the end of the case.??No obvious complications occurred. The patient was transferred from the [place] table back to a stretcher. The patient emerged from anesthesia without difficulty and was taken to the PACU in a stable condition.? Plan for aftercare: * Anterior hip precautions * Weightbearing as tolerated * Aspirin 81 twice per day for DVT prophylaxis * Will require social work and physical therapy assessment for determination of discharge destination * It is absolutely essential that the patient quit smoking and I have discussed this with the patient's family, who can be instrumental in this. Because of the patient's limited mobility she will not be able to get cigarettes herself and I want the family to take all of them away from her so that she does not have any access to them. This is absolutely critical for her to be able to heal her wound in her anterior hip and avoid infection * Change into normal clothes upon arrival on the hospital floor * Mobilize in the halls as much as is logistically possible. If physical therapy is unavailable for mobilization, then patient should mobilize with nursing staff * Multimodal pain regimen with no IV opioids ordered * Apply ice machine to operative hip. Ensure that sufficient ice is in the chamber for the pad to remain cold * Follow up at [facility] in 2 weeks * Detailed postoperative instructions available at [email or web address]
[2024-06-30] MEDS: HYDROMORPHONE 1 MG INJ IV (19:41)
[2024-06-30] MEDS: hydrOXYzine 50 MG/ML INJ 25 MG IM (19:41)
[2024-06-30] MEDS: LACTATED RINGERS 1,000 ML 100 ML IV (21:05)
[2024-06-30] MEDS: ASPIRIN EC 81 MG TABLET PO (21:59)
[2024-06-30] MEDS: BUSPIRONE 5 MG TABLET PO (21:59)
[2024-06-30] MEDS: GABAPENTIN 100 MG CAPSULE 200 MG PO (21:59)
[2024-06-30] MEDS: DOCUSATE 100 MG CAPSULE PO (22:00)
[2024-07-01] MEDS: CEFAZOLIN 2 GM/100 ML PREMIX 100 ML IV ×2 (02:00→11:03)
[2024-07-01 04:00] VITALS: BP 110/86; PULSE 86; RESP 18; TEMP 37; O2SAT 96
[2024-07-01 05:24] VITALS: BP 98/71; PULSE 70; RESP 18; TEMP 37.1; O2SAT 100
[2024-07-01 06:34] LABS: Hematocrit 31.3 % (36-46); Hemoglobin 10.7 g/dL (12.0-16.0)
[2024-07-01] MEDS: LEVOTHYROXINE 50 MCG TABLET PO (07:00)
--- NOTE | 2024-07-01 07:42 | PM.PNPO.1 ---
Subjective Subjective Date Patient Seen: 07/01/24 Time Patient Seen: 07:42 Interval history: Patient notes mild hip pain and wrist pain. No shortness of breath or chest pain. No fever chills. Exam Vital Signs (past 8 hours): - 07/01/24 04:00 07/01/24 05:24 Temperature 98.6 F 98.8 F Pulse Rate 86 70 Respiratory Rate 18 18 Blood Pressure 110/86 98/71 Pulse Oximetry 96 100 Oxygen Flow Rate 2 2 Oxygen Delivery Method Room Air Oxygen Flow Rate 2 Narrative Exam Narrative: 84-year-old female resting comfortably in bed. Dressing is clean, dry and intact. Wrist splint in place. Neurovascular status is intact bilateral upper and lower extremities. Const General: cooperative Nutritional Appearance: average body habitus Orientation: alert Resp Effort & Inspection: normal respiratory effort and able to speak in complete sentences Objective Labs 07/01/24 06:14 06/30/24 05:40 Labs: Laboratory Results - last 24 hr 07/01/24 06:14 Hgb 10.7 L Hct 31.3 L PFSH Medical History Trigger finger, right middle finger Chronic diarrhea Chronic neck and back pain Arthritis (Unknown) Tinnitus of both ears (Unknown) History of recurrent ear infection (Unknown) Sjogren's syndrome (1998) Mumps (~1947) Chickenpox (~1947) Chronic pain syndrome (Unknown) COPD (chronic obstructive pulmonary disease) (1998) Fractures (~1980) Osteopenia (2004) Scoliosis (2015) Cataracts, bilateral (2001) Hypothyroidism (Unknown) Surgical History History of open reduction and internal fixation (ORIF) procedure (11/2017) Hx of laminectomy (Unknown) Hx of discectomy (Unknown) History of cataract removal with insertion of prosthetic lens Status post hysterectomy Family History Father Cancer Grandmother DM (diabetes mellitus screen) Mother Cancer Grandfather DM (diabetes mellitus screen) Grandfather Mental health problem Family/Other No problems noted. Social History household members: family Smoking Status: Current every day smoker Tobacco: How many years used: 59 quit status: considering quitting second hand exposure: Yes alcohol intake: current substance use type: does not use Assessment & Plan Post-op Postoperative Procedures: Procedures Operation Date: 06/30/24 16:15 Actual Procedure Side Surgeon p Total Hip Arthroplasty/Anterior Approach Left James Weber MD Postoperative day: 1 Postoperative plan narrative: 1.Left total hip arthroplasty Weight-bearing as tolerated, anterior hip precautions Aspirin 81 mg b.i.d. for DVT prophylaxis. Multimodal pain management Ice to hip as needed Follow-up outpatient Orthopedics in 2 weeks. 2. Left radial styloid fracture, nondisplaced Wrist brace, non op treatment We will continue to follow at her 2 week postop appointment Quality VTE Deep Vein Thrombosis/Pulmonary Embolism Present on Admission: No
[2024-07-01 08:00] VITALS: BP 99/45; PULSE 74; RESP 16; TEMP 36.2; O2SAT 96
[2024-07-01] MEDS: GABAPENTIN 100 MG CAPSULE 200 MG PO ×2 (09:05→21:14)
[2024-07-01] MEDS: OXYCODONE IR 5 MG TABLET PO ×2 (09:05→17:08)
[2024-07-01] MEDS: ASPIRIN EC 81 MG TABLET PO ×2 (09:05→21:13)
[2024-07-01] MEDS: DOCUSATE 100 MG CAPSULE PO ×2 (09:05→21:13)
[2024-07-01] MEDS: ACETAMINOPHEN 325 MG TABLET 650 MG PO ×2 (09:06→14:49)
[2024-07-01] MEDS: SODIUM CHLORIDE 0.9% FLUSH 10 ML IV ×2 (09:07→21:15)
--- NOTE | 2024-07-01 09:15 | PT.IIE ---
Current Diagnoses Fracture of unspecified part of neck of left femur, initial encounter for closed fracture (06/30/24) Surgery Performed Operation Date: 06/30/24 16:15 Actual Procedures p Total Hip Arthroplasty/Anterior Approach(Left) - James Weber MD Surgical History (Last Reviewed 06/30/24 @ 04:53 by Savanah William MD) History of cataract removal with insertion of prosthetic lens History of open reduction and internal fixation (ORIF) procedure (11/2017) Hx of discectomy (Unknown) Hx of laminectomy (Unknown) Status post hysterectomy Medical History (Last Reviewed 06/30/24 @ 07:12 by Nixon Messina DO) Arthritis (Unknown) Cataracts, bilateral (2001) Chickenpox (~1947) Chronic diarrhea Chronic neck and back pain Chronic pain syndrome (Unknown) COPD (chronic obstructive pulmonary disease) (1998) Fractures (~1980) History of recurrent ear infection (Unknown) Hypothyroidism (Unknown) Mumps (~1947) Osteopenia (2004) Scoliosis (2015) Sjogren's syndrome (1998) Tinnitus of both ears (Unknown) Trigger finger, right middle finger Physical Therapy Inpatient Evaluation/Re-Eval M1 PT/OT-IP Prior Functional Status Start: 07/01/24 12:53 Freq: NEEDED Status: Active Protocol: Document 07/01/24 09:15 AB (Rec: 07/01/24 13:18 AB [id number]) Medical Review Prior Functional Status Medical History Reviewed Yes Communication able to make needs known Mobility and Gait pt stated that she was independent with all mobilities and ambulation without AD Activities of Daily Living and IADL's per OT note: Pt states prior completely independent with all needs and drives some. Social History Household Members family Living Arrangements House Number of Floors (Floors) One Floor Number of Stairs To Enter/Railing? 1 step to enter the house Home Environment Standard Height Toilet,Tub/ Shower Home Equipment Front Wheel Walker,Straight Cane,Hand Held Shower,Cuff Setter Overlock Additional Social History Comment pt lives with her grand daughter and her spouse and children M2 PT-IP Current Condition Start: 07/01/24 12:53 Freq: NEEDED Status: Active Protocol: Document 07/01/24 09:15 AB (Rec: 07/01/24 13:18 AB [id number]) Physical Therapy Current Condition Current Condition Evaluation Date 07/01/24 Treatment Diagnosis s/p L OLY anterior; difficulty in walking Onset Date 06/30/24 M3 PT-IP Subjective Start: 07/01/24 12:53 Freq: NEEDED Status: Active Protocol: Document 07/01/24 09:15 AB (Rec: 07/01/24 13:18 AB [id number]) Subjective Physical Therapy Visit Type Type Initial Evaluation Visit Start Time 09:15 Visit Stop Time 10:10 Number of [employer]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 Physical Therapy Visit Comments Patient Comments agreeable to do PT Therapy Pain Assessment Pain When Pain Assessed At Rest Pain Present Pain Present Pain Reported Location Left Hip Intensity 5 Scale Used Numeric (0 - 10) Pain Behaviors Guarding,Holding Area,Wincing Pain Management Techniques Apply Cold,Distraction, Modification of Treatment,Re- positioning,Timing of Activity with Medications M4 PT-IP Mobility and Gait Start: 07/01/24 12:53 Freq: NEEDED Status: Active Protocol: Document 07/01/24 09:15 AB (Rec: 07/01/24 13:18 AB [id number]) PT-Bed Mobility Assessment Supine to Sit Supine to Sit Maximum Assistance,1 Person Assistance,Head of Bed Elevated,Bedrails PT-Transfer Assessment Sit to and From Stand Sit to and from Stand Moderate Assistance,1 Person Assistance,Use of Upper Extremities Equipment Transfer Assistive Device Gait Belt,Front Wheeled Walker Orthotic/Prosthetic Devices or Brace: Yes Transfers Transfer Destination Chair Transfer Technique ambulated Transfer Ability Level of Assist Minimal Assistance,1 Person Assistance,Use of Upper Extremities Comments Mobility Comments pt supine in bed and grand daughter and her spouse in room. obtained PLOf and home set up from pt and family. educated pt on L hip anterior precautions. post-op folder provided and reviewed contents . pt also has L wrist brace due to L radial fx. BP: 99/48 . pt completed supine to sit max A and max cues. pt able to sit on EOB min A and cues. BP sittin/44. completed sit to stand mod A and cues and ambulated using FWW mod A ~ 12 ft to the chair. pt refused further ambulation. positioned pt on the chair. call light and table placed within reach. informed pt and family regarding SNF rehab and agreed . Gait Assessment Gait Gait Assistance Required: Moderate Assistance Distance (Feet) 12 Able to Maintain Weight Bearing Status Yes During Gait Assistive Devices Assistive Device Gait Belt,Front Wheeled Walker Orthotic/Prosthetic Devices or Brace: Yes Gait Deviations General Gait Pattern Antalgic,Decreased Feet Clearance Factors Limiting Gait Function Factors Limiting Gait Function Decreased Activity Tolerance, Decreased Strength,Difficulty Following Directions,Limited Range of Motion,Pain,Poor Balance,Poor Safety Awareness PT-Balance Assessment Sitting Balance and Reactions Static Sitting Balance Ability Fair Dynamic Sitting Balance Ability Fair Standing Balance and Reactions Static Standing Balance Ability Poor Dynamic Standing Balance Ability Poor Device Used FWW M5 PT-IP Objective Assessments Start: 07/01/24 12:53 Freq: NEEDED Status: Active Protocol: Document 07/01/24 09:15 AB (Rec: 07/01/24 13:18 AB [id number]) Orientation Orientation/Cognition Level of Alertness Alert Orientation Name,Place,Situation Language Function Ability Hard of Hearing Safety Awareness Decreased Safety Awareness Memory Description Short Term Impaired Gross Range of Motion Lower Extremity ROM Assessment Within Functional Limits Strength Lower Extremity Strength Assessment Left Impaired Hip 3-/5 Knee 3+/5 Sensation Assessment Sensation Gross Sensation WNL Muscle Tone Muscle Tone WNL Yes M6 PT-IP Treatment Start: 07/01/24 12:53 Freq: NEEDED Status: Active Protocol: Document 07/01/24 09:15 AB (Rec: 07/01/24 13:18 AB [id number]) Physical Therapy Treatment Education Education Provided Precautions,Weight Bearing Status,Post-Op Packet,Safety M7 PT-IP Assessment and Plan Start: 07/01/24 12:53 Freq: NEEDED Status: Active Protocol: Document 07/01/24 09:15 AB (Rec: 07/01/24 13:18 AB [id number]) PT Summary Assessment and Plan Potential Rehabilitation Potential Fair Status of Condition at Evaluation Evolving Summary Impairments Pain,ROM,Strength,Balance, Coordination,Sensation,Tone, Cognition,Bed Mobility, Transfers,Gait,Activity Tolerance Assessment Summary pt is an 84 y/o F with GLF and sustained a L femoral neck fx and L wrist fx. pt underwent L OLY anterior approach POD 1 and wrist fx is non-operative and pt has wrist brace at this time. pt with L hip anterior precautions and is WBAT. per ortho MD, pt is ok to use L wrist on walker. pt requiring max A for bed mobility, mod A for transfers and ambulation using FWW. pt with decrease activity tolerance and c/o increase pain affecting mobility. pt will require SNF rehab to improve strength and function. will continue to assess. Goals Bed Mobility Goal Minimal Assistance Transfer Goal Minimal Assistance,Front Wheeled Walker Gait Goal Minimal Assistance,Front Wheel Walker Gait Distance 100 Other Goals improve bed mobility, transfers, ambulation using FWW 100 ft SBA up/down 1 step using FWW SBA Days to Meet Goals 10 Frequency of Treatment Frequency Of Treatment Twice a Day Treatment Plan Physical Therapy Treatment Plan Bed Mobility Training,Transfer Training,Gait Training, Therapeutic Exercise,Balance Retraining,Post Op Education, Discharge Planning,Hot or Cold Pack,Neuromuscular Re-ed, Coordination Retraining,Manual Therapy Precautions Anterior Hip Precautions No Hip Extension,No Hip External Rotation Brace L wrist brace/support Weight Bearing Status Weight Bearing Status Weight Bear as Tolerated Allowed Weight Bearing Amount (enter % LLE WBAT or #) (%) allowed to use L wrist on FWW Recommendations To Nursing Amount of Assist Needed 1 Person Assist Discharge Recommendations PT Discharge Recommendations SNF Rehab Transportation Needs at Discharge Wheelchair/Cabulance
[2024-07-01] MEDS: LACTATED RINGERS 1,000 ML 100 ML IV (11:04)
--- NOTE | 2024-07-01 12:53 | OT.IP.EVAL ---
Current Diagnoses Fracture of unspecified part of neck of left femur, initial encounter for closed fracture (06/30/24) Surgery Performed Operation Date: 06/30/24 16:15 Actual Procedures p Total Hip Arthroplasty/Anterior Approach(Left) - James eWber MD Past Medical History (Last Reviewed 06/30/24 @ 07:12 by Nixon Messina DO) Arthritis (Unknown) Cataracts, bilateral (2001) Chickenpox (~1947) Chronic diarrhea Chronic neck and back pain Chronic pain syndrome (Unknown) COPD (chronic obstructive pulmonary disease) (1998) Fractures (~1980) History of recurrent ear infection (Unknown) Hypothyroidism (Unknown) Mumps (~1947) Osteopenia (2004) Scoliosis (2015) Sjogren's syndrome (1998) Tinnitus of both ears (Unknown) Trigger finger, right middle finger Surgical History (Last Reviewed 06/30/24 @ 04:53 by Savanah William MD) History of cataract removal with insertion of prosthetic lens History of open reduction and internal fixation (ORIF) procedure (11/2017) Hx of discectomy (Unknown) Hx of laminectomy (Unknown) Status post hysterectomy Occupational Therapy Inpatient Evaluation/Re-Eval M2 OT-IP Current Condition Start: 07/01/24 12:34 Freq: Status: Active Protocol: Document 07/01/24 12:35 [facility] (Rec: 07/01/24 12:53 [facility] [id number]) Occupational Therapy Current Condition Current Condition Evaluation Date 07/01/24 Treatment Diagnosis GLF S/P L OLY and Left small fx of tip of left radial styloid Diagnosis Onset Date 06/30/24 Weight Bearing Status Weight Bearing Status Weight Bear as Tolerated Allowed Weight Bearing Amount (enter % Left wrist can use it for or #) (%) ambulation if able to tolerate with brace on. M3 OT- IP Subjective and Pain Start: 07/01/24 12:34 Freq: Status: Active Protocol: Document 07/01/24 12:35 [facility] (Rec: 07/01/24 12:53 [facility] [id number]) OT- Subjective Occupational Therapy Visit Type Type Initial Evaluation Visit Start Time 11:11 Visit Stop Time 11:58 Occupational Therapy Visit Comments Patient Comments Pt wanting to use the bathroom . Patient/Caregiver Goals To get better. OT Pain Assessment Pain When Pain Assessed During Mobility Pain Present Pain Present Pain Reported Location Left Hip Intensity 5 Scale Used Numeric (0 - 10) M4 OT- IP ADL's Start: 07/01/24 12:34 Freq: Status: Active Protocol: Document 07/01/24 12:35 [facility] (Rec: 07/01/24 12:53 [facility] [id number]) OT [id number] Comments OT Self-Feeding Comments Not at meal time. OT ADL-Grooming Comments OT Grooming Comments Pt not wanting to do at this time. OT ADL-Oral Care Comments Oral Care Comments Not performed. OT ADL-Dressing General Eval Lower Body Dressing Ability Moderate Assistance Areas Needing Assistance Underpants/Brief,Socks Comments OT Dressing Comments Pt needing assist to oneil left socks and brief over her foot. OT ADL-Toileting General Evaluation Toileting Ability Minimal Assistance Areas Needing Assistance Manage Clothing Comments OT Toileting Comments Educated pt best to wipe from the back if having a bowel movement to prevent infections . Also educated pt to be mindful not to externally rotate her LLE out durin hygiene needs. Pt states gets up 1-3 times at night and best to have a BSC. OT ADL-Bathing Comments OT Bathing Comments Pt will benefit from a shower chair or tub bench at home. M5 OT- IP IADL's Start: 07/01/24 12:34 Freq: Status: Active Protocol: Document 07/01/24 12:35 [facility] (Rec: 07/01/24 12:53 [facility] [id number]) OT-Instrumental Activities of Daily Living Deficits IADL Deficits Identified Deficits Home Safety Awareness Awareness of Need for Assistance at Home Decreased Awareness Ability to Problem Solve Emergency Able to Problem Solve Situations Home Safety Comments Pt is very groggy and not able to think well. Pt states does not take medications at home and realizes that she is not thinking well. Medication Management Medication Management Comments At this time pt will benefit from assist. Money Management Money Management Comments At this time pt will benefit from assist. Meal Preparation Meal Preparation Comments Pt will need assist. Keypunch Operator Keypunch Operator Comments Pt will need assist. M6 OT- IP Functional Cognition Start: 07/01/24 12:34 Freq: Status: Active Protocol: Document 07/01/24 12:35 [facility] (Rec: 07/01/24 12:53 [facility] [id number]) Cognitive Factors Limiting Selfcare Function Cognitive Ability Level of Alertness Confusional State,Drowsy Patient Orientation Name,Place,Situation Attention Span Ability Capable of Focused Attention, Unable to Sustain Attention Ability to Follow Commands Able to Follow One Step Commands with Increased Time, Able to Follow One Step Commands with Repetition Safety Awareness Decreased Recall of Precautions,Decreased Ability to Apply Precautions Cognitive Comments Cognitive Assessment Comments Pt is very groggy, not thinking well or able to recall her hip precautions after continuous education. Pt getting her right and left side mixed up. Pt feels that she is still groggy from the sx and medications. Pt needing step by step commands to follow her hip precautions, pt needing visual and tactile cues. OT- Vision and Hearing OT- Hearing Assessment OT- Hearing Assessment WFL OT- Vision Assessment Visual Attentiveness WFL Occular Pursuits WFL M7 OT- IP Mobility and Balance Start: 07/01/24 12:34 Freq: Status: Active Protocol: Document 07/01/24 12:35 [facility] (Rec: 07/01/24 12:53 [facility] [id number]) OT-Transfer Assessment Sit to and From Stand Sit to and from Stand Contact Guard Assistance, Minimal Assistance Transfers Transfer Ability Contact Guard Assistance Technique Transfer Destination Chair,Toilet Transfer Technique Stand Step Pivot Devices Transfer Assistive Devices Gait Belt,Front Wheeled Walker Comments Mobility Comments CGA to UNRULY to stand from lower surfaces. CGA with FWW and as tiring needing UNRULY with FWW as had oneloss of balance with the FWW. OT- Balance Assessment Sitting Balance and Reactions Static Sitting Balance Ability Normal Dynamic Sitting Balance Ability Good Standing Balance and Reactions Static Standing Balance Ability Fair Dynamic Standing Balance Ability Fair M8 OT- IP Objective Assessments Start: 07/01/24 12:34 Freq: Status: Active Protocol: Document 07/01/24 12:35 [facility] (Rec: 07/01/24 12:53 [facility] [id number]) OT Gross Range of Motion Upper Extremity Range of Motion Assessment Left Impaired ROM Impairments Pt able to open and close her left hand . OT Strength Upper Extremity Strength Assessment Left Impaired Comments Strength Comments Left hand in wrist brace. M9 OT- IP Assessment and Plan Start: 07/01/24 12:34 Freq: Status: Active Protocol: Document 07/01/24 12:35 [facility] (Rec: 07/01/24 12:53 [facility] [id number]) OT Summary Assessment and Plan Potential Rehabilitation Potential Good Analytic Complexity at Evaluation Moderate Summary OT Impairments Pain,Strength,Balance, Functional Cognition, Functional Mobility,Grooming, Dressing,Toileting,Bathing, Toilet Transfers,Shower Transfers,Activity Tolerance Progress Towards Goals Progressing Toward Goals,Slow Progress due to Pain,Slow Progress due to Cognition Assessment Summary Pt MOD complexity and main barriers are pain, steps, groggy sx and not thinking well at this time. Pt will benefit from skilled rehab prior to going home. Goals Self-Feeding Goal Independent Grooming Goal Independent Dressing Goal Independent Toileting Goal Independent Bathing Goal Independent Toilet Transfer Goal Independent Shower Transfer Goal Independent Days to Meet Goals 15 Frequency of Treatment Other frequency 5x/week Treatment Plan OT Treatment Plan ADL Training,Functional Cognition Training,Functional Mobility,Patient/Family Education,Discharge Planning Other Treatment Recommendations and Next Standing ADL needs. Treatment Focus Discharge Recommendations OT Discharge Recommendations SNF Rehab Transportation Needs at Discharge Wheelchair/Cabulance
--- NOTE | 2024-07-01 15:17 | PM.PN.1 ---
Subjective Subjective Interval history: surgery went well, patient having a little bit of a runny nose and itchy eyes today but otherwise no complaints Exam Vital Signs (past 8 hours): - 07/01/24 08:00 07/01/24 09:00 Temperature 97.1 F L Pulse Rate 74 Respiratory Rate 16 Blood Pressure 99/45 L Pulse Oximetry 96 Oxygen Delivery Method Room Air Oxygen Delivery Method Room Air Oxygen Flow Rate 2 Narrative Exam Narrative: comfortable in bed, splint on wrist Const General: cooperative Nutritional Appearance: average body habitus Orientation: alert Resp Effort & Inspection: normal respiratory effort and able to speak in complete sentences Objective Labs 07/01/24 06:14 06/30/24 05:40 Labs: Laboratory Results - last 24 hr 07/01/24 06:14 Hgb 10.7 L Hct 31.3 L PFSH Medical History Trigger finger, right middle finger Chronic diarrhea Chronic neck and back pain Arthritis (Unknown) Tinnitus of both ears (Unknown) History of recurrent ear infection (Unknown) Sjogren's syndrome (1998) Mumps (~1947) Chickenpox (~1947) Chronic pain syndrome (Unknown) COPD (chronic obstructive pulmonary disease) (1998) Fractures (~1980) Osteopenia (2004) Scoliosis (2015) Cataracts, bilateral (2001) Hypothyroidism (Unknown) Surgical History History of open reduction and internal fixation (ORIF) procedure (11/2017) Hx of laminectomy (Unknown) Hx of discectomy (Unknown) History of cataract removal with insertion of prosthetic lens Status post hysterectomy Family History Father Cancer Grandmother DM (diabetes mellitus screen) Mother Cancer Grandfather DM (diabetes mellitus screen) Grandfather Mental health problem Family/Other No problems noted. Social History household members: family Smoking Status: Current every day smoker Tobacco: How many years used: 59 quit status: considering quitting second hand exposure: Yes alcohol intake: current substance use type: does not use Assessment & Plan Assessment & Plan narrative: #Mechanical Fall with resulting left femoral neck fracture s/p left total hip arthoplasty #Left radial styloid fracture, nondisplaced -stable for discharge when able -pt/ot -ortho following appreciate recommendations -pain control Home Med Rec -continue home levothyroxine DVT PPx: SCD CODE: keyboard operator-Based Coding :: [TOTAL MINUTES] spent with patient and on the chart (including review of chart, obtaining history, exam, reviewing outside data, placing orders, documenting exam and treatment plan, and counseling patient) on [DATE]. Quality VTE Deep Vein Thrombosis/Pulmonary Embolism Present on Admission: No
--- NOTE | 2024-07-01 15:43 | PT.IPTN ---
Current Diagnoses Fracture of unspecified part of neck of left femur, initial encounter for closed fracture (06/30/24) Surgery Performed Operation Date: 06/30/24 16:15 Actual Procedures p Total Hip Arthroplasty/Anterior Approach(Left) - James Weber MD Physical Therapy Treatment Note M2 PT-IP Current Condition Start: 07/01/24 12:53 Freq: NEEDED Status: Active Protocol: Document 07/01/24 09:15 AB (Rec: 07/01/24 13:18 AB [id number]) Physical Therapy Current Condition Current Condition Evaluation Date 07/01/24 Treatment Diagnosis s/p L OLY anterior; difficulty in walking Onset Date 06/30/24 M3 PT-IP Subjective Start: 07/01/24 12:53 Freq: NEEDED Status: Active Protocol: Document 07/01/24 15:55 TS (Rec: 07/01/24 16:09 TS [id number]) Subjective Physical Therapy Visit Type Type Treatment Note Visit Start Time 15:43 Visit Stop Time 15:55 Number of ORACLE ENGINEER Visits 1 Physical Therapy Visit Comments Patient Comments pt requesting back to bed, she is agreeable to PT. Therapy Pain Assessment Pain When Pain Assessed At Rest Pain Present Pain Present Pain Reported M4 PT-IP Mobility and Gait Start: 07/01/24 12:53 Freq: NEEDED Status: Active Protocol: Document 07/01/24 15:55 TS (Rec: 07/01/24 16:09 TS [id number]) PT-Bed Mobility Assessment Sit to Supine Sit to Supine Moderate Assistance,1 Person Assistance PT-Transfer Assessment Sit to and From Stand Sit to and from Stand Minimal Assistance,1 Person Assistance Equipment Transfer Assistive Device Gait Belt,Front Wheeled Walker Orthotic/Prosthetic Devices or Brace: Yes Comments Mobility Comments Pt recalled 0/2 hip precautions prior to mobility, pt was educated on no hip ext and ext rotation. STS with FWW Diane, pt cued for RUE pushing from arm of chair, LUE in brace on FWW. She ambulated ~10'Diane with FWW, pt requested back to bed. Sit to supine ModA for LE's into bed. Pt was left in bed, nursing notified. Gait Assessment Gait Gait Assistance Required: Minimum Assistance Distance (Feet) 10 Able to Maintain Weight Bearing Status Yes During Gait Assistive Devices Assistive Device Gait Belt,Front Wheeled Walker Orthotic/Prosthetic Devices or Brace: Yes Gait Deviations General Gait Pattern Antalgic,Decreased Feet Clearance Factors Limiting Gait Function Factors Limiting Gait Function Decreased Activity Tolerance, Decreased Strength,Difficulty Following Directions,Limited Range of Motion,Pain,Poor Balance,Poor Safety Awareness PT-Balance Assessment Sitting Balance and Reactions Static Sitting Balance Ability Good Dynamic Sitting Balance Ability Good Standing Balance and Reactions Static Standing Balance Ability Fair Dynamic Standing Balance Ability Fair Device Used FWW M5 PT-IP Objective Assessments Start: 07/01/24 12:53 Freq: NEEDED Status: Active Protocol: Document 07/01/24 09:15 AB (Rec: 07/01/24 13:18 AB [id number]) Orientation Orientation/Cognition Level of Alertness Alert Orientation Name,Place,Situation Language Function Ability Hard of Hearing Safety Awareness Decreased Safety Awareness Memory Description Short Term Impaired Gross Range of Motion Lower Extremity ROM Assessment Within Functional Limits Strength Lower Extremity Strength Assessment Left Impaired Hip 3-/5 Knee 3+/5 Sensation Assessment Sensation Gross Sensation WNL Muscle Tone Muscle Tone WNL Yes M6 PT-IP Treatment Start: 07/01/24 12:53 Freq: NEEDED Status: Active Protocol: Document 07/01/24 15:55 TS (Rec: 07/01/24 16:09 TS [id number]) Physical Therapy Treatment Education Education Provided Precautions,Weight Bearing Status,Post-Op Packet,Safety M7 PT-IP Assessment and Plan Start: 07/01/24 12:53 Freq: NEEDED Status: Active Protocol: Document 07/01/24 15:55 TS (Rec: 07/01/24 16:09 TS [id number]) PT Summary Assessment and Plan Potential Rehabilitation Potential Fair Summary Impairments Pain,ROM,Strength,Balance, Coordination,Sensation,Tone, Cognition,Bed Mobility, Transfers,Gait,Activity Tolerance Progress Towards Goals Slow Progress due to Pain,Slow Progress due to Activity Tolerance Assessment Summary Shanda is making slow progress with her mobility. She requires Diane for STS with FWW and ModA for getting into bed . Poor activity tolerance and pain limits her mobility, she continues to ambulate short distances in the room. PT is recommending SNF to improve strength and functional mobility before d/c home. Goals Bed Mobility Goal Minimal Assistance Transfer Goal Minimal Assistance,Front Wheeled Walker Gait Goal Minimal Assistance,Front Wheel Walker Gait Distance 100 Other Goals improve bed mobility, transfers, ambulation using FWW 100 ft SBA up/down 1 step using FWW SBA Days to Meet Goals 10 Frequency of Treatment Frequency Of Treatment Twice a Day Treatment Plan Physical Therapy Treatment Plan Bed Mobility Training,Transfer Training,Gait Training, Therapeutic Exercise,Balance Retraining,Post Op Education, Discharge Planning,Hot or Cold Pack,Neuromuscular Re-ed, Coordination Retraining,Manual Therapy Precautions Anterior Hip Precautions No Hip Extension,No Hip External Rotation Brace L wrist brace/support Weight Bearing Status Weight Bearing Status Weight Bear as Tolerated Allowed Weight Bearing Amount (enter % LLE WBAT or #) (%) allowed to use L wrist on FWW Recommendations To Nursing Amount of Assist Needed 1 Person Assist Discharge Recommendations PT Discharge Recommendations SNF Rehab Transportation Needs at Discharge Wheelchair/Cabulance
[2024-07-01 16:00] VITALS: BP 114/48; PULSE 80; RESP 16; TEMP 36.6; O2SAT 97
[2024-07-01 20:00] VITALS: BP 118/76; PULSE 74; RESP 18; TEMP 37; O2SAT 98
[2024-07-01] MEDS: BUSPIRONE 5 MG TABLET PO (21:13)
[2024-07-02] VITALS (7 sets, daily range): BP systolic 108–154; BP diastolic 51–80; PULSE 79–104; RESP 16–18; TEMP 36.4–37.7; O2SAT 96–99
[2024-07-02] MEDS: LEVOTHYROXINE 50 MCG TABLET PO (07:00)
[2024-07-02] MEDS: ENOXAPARIN 40 MG/0.4 ML SYRINGE SUBCUT (09:06)
[2024-07-02] MEDS: OXYCODONE IR 5 MG TABLET PO (09:06)
[2024-07-02] MEDS: ASPIRIN EC 81 MG TABLET PO ×2 (09:07→20:35)
[2024-07-02] MEDS: DOCUSATE 100 MG CAPSULE PO ×2 (09:07→20:35)
[2024-07-02] MEDS: BUSPIRONE 5 MG TABLET PO ×2 (09:07→20:35)
[2024-07-02] MEDS: GABAPENTIN 100 MG CAPSULE 200 MG PO ×4 (09:07→20:35)
[2024-07-02] MEDS: SODIUM CHLORIDE 0.9% FLUSH 10 ML IV ×2 (09:13→20:36)
--- NOTE | 2024-07-02 11:45 | PT.IPTN ---
Current Diagnoses Fracture of unspecified part of neck of left femur, initial encounter for closed fracture (06/30/24) Surgery Performed Operation Date: 06/30/24 16:15 Actual Procedures p Total Hip Arthroplasty/Anterior Approach(Left) - James Weber MD Physical Therapy Treatment Note M2 PT-IP Current Condition Start: 07/01/24 12:53 Freq: NEEDED Status: Active Protocol: Document 07/01/24 09:15 AB (Rec: 07/01/24 13:18 AB [id number]) Physical Therapy Current Condition Current Condition Evaluation Date 07/01/24 Treatment Diagnosis s/p L OLY anterior; difficulty in walking Onset Date 06/30/24 M3 PT-IP Subjective Start: 07/01/24 12:53 Freq: NEEDED Status: Active Protocol: Document 07/02/24 12:08 TS (Rec: 07/02/24 12:13 TS [id number]) Subjective Physical Therapy Visit Type Type Treatment Note Visit Start Time 11:45 Visit Stop Time 12:03 Number of TECHNICAL PROJECT LEAD Visits 2 Physical Therapy Visit Comments Patient Comments Pt found resting in bed, is agreeable to PT. Therapy Pain Assessment Pain When Pain Assessed At Rest Pain Present Pain Present Pain Reported M4 PT-IP Mobility and Gait Start: 07/01/24 12:53 Freq: NEEDED Status: Active Protocol: Document 07/02/24 12:08 TS (Rec: 07/02/24 12:13 TS [id number]) PT-Bed Mobility Assessment Supine to Sit Supine to Sit Maximum Assistance,1 Person Assistance,Head of Bed Elevated,Bedrails Scooting Scooting to Edge of Bed Moderate Assistance PT-Transfer Assessment Sit to and From Stand Sit to and from Stand Minimal Assistance,1 Person Assistance Equipment Transfer Assistive Device Gait Belt,Front Wheeled Walker Orthotic/Prosthetic Devices or Brace: Yes Comments Mobility Comments Supine to sit MaxA x1 for uprightin trunk. Pt has difficulty scooting to EOB, requires ModA. STS with FWW Diane, pt initially in standing is unsteady, balance improves with increased time on feet. She ambulated with a very slow step to gait ~10' Diane with FWW, she fatigues quickly and requests to sit in chair. Pt was left in the chair, all needs met. Gait Assessment Gait Gait Assistance Required: Minimum Assistance Distance (Feet) 10 Able to Maintain Weight Bearing Status Yes During Gait Assistive Devices Assistive Device Gait Belt,Front Wheeled Walker Gait Deviations General Gait Pattern Antalgic,Decreased Feet Clearance Factors Limiting Gait Function Factors Limiting Gait Function Decreased Activity Tolerance, Decreased Strength,Difficulty Following Directions,Limited Range of Motion,Pain,Poor Balance,Poor Safety Awareness PT-Balance Assessment Sitting Balance and Reactions Static Sitting Balance Ability Good Dynamic Sitting Balance Ability Good Standing Balance and Reactions Static Standing Balance Ability Fair Dynamic Standing Balance Ability Fair Device Used FWW M5 PT-IP Objective Assessments Start: 07/01/24 12:53 Freq: NEEDED Status: Active Protocol: Document 07/01/24 09:15 AB (Rec: 07/01/24 13:18 AB [id number]) Orientation Orientation/Cognition Level of Alertness Alert Orientation Name,Place,Situation Language Function Ability Hard of Hearing Safety Awareness Decreased Safety Awareness Memory Description Short Term Impaired Gross Range of Motion Lower Extremity ROM Assessment Within Functional Limits Strength Lower Extremity Strength Assessment Left Impaired Hip 3-/5 Knee 3+/5 Sensation Assessment Sensation Gross Sensation WNL Muscle Tone Muscle Tone WNL Yes M6 PT-IP Treatment Start: 07/01/24 12:53 Freq: NEEDED Status: Active Protocol: Document 07/01/24 15:55 TS (Rec: 07/01/24 16:09 TS [id number]) Physical Therapy Treatment Education Education Provided Precautions,Weight Bearing Status,Post-Op Packet,Safety M7 PT-IP Assessment and Plan Start: 07/01/24 12:53 Freq: NEEDED Status: Active Protocol: Document 07/02/24 12:08 TS (Rec: 07/02/24 12:13 TS [id number]) PT Summary Assessment and Plan Potential Rehabilitation Potential Fair Summary Impairments Pain,ROM,Strength,Balance, Coordination,Sensation,Tone, Cognition,Bed Mobility, Transfers,Gait,Activity Tolerance Progress Towards Goals Slow Progress due to Pain,Slow Progress due to Activity Tolerance Assessment Summary Shanda continues to make slow progress with her mobility. She continues to require MaxA for bed mobility. She is limited in her gait and ambulates short distances in the room before fatigue. She requires max cues for mobility and has some difficulty following instructions. PT continues to recommend SNF. Goals Bed Mobility Goal Minimal Assistance Transfer Goal Minimal Assistance,Front Wheeled Walker Gait Goal Minimal Assistance,Front Wheel Walker Gait Distance 100 Other Goals improve bed mobility, transfers, ambulation using FWW 100 ft SBA up/down 1 step using FWW SBA Days to Meet Goals 10 Frequency of Treatment Frequency Of Treatment Twice a Day Treatment Plan Physical Therapy Treatment Plan Bed Mobility Training,Transfer Training,Gait Training, Therapeutic Exercise,Balance Retraining,Post Op Education, Discharge Planning,Hot or Cold Pack,Neuromuscular Re-ed, Coordination Retraining,Manual Therapy Precautions Anterior Hip Precautions No Hip Extension,No Hip External Rotation Brace L wrist brace/support Weight Bearing Status Weight Bearing Status Weight Bear as Tolerated Allowed Weight Bearing Amount (enter % LLE WBAT or #) (%) allowed to use L wrist on FWW Recommendations To Nursing Amount of Assist Needed 1 Person Assist Discharge Recommendations PT Discharge Recommendations SNF Rehab Transportation Needs at Discharge Wheelchair/Cabulance
--- NOTE | 2024-07-02 15:16 | PM.PNPO.1 ---
Subjective Subjective Interval history: Shanda is a pleasant 84 year old female who is POD#2 s/p left total hip arthroplasty through anterior approach by Dr. Weber. Granddaughter at bedside. This morning patient states her hip is causing her a lot of pain and she feels limited in her LLE mobility d/t pain. She mobilized some around her room today w/ PT. She lives at home w/ several family members including her granddaughter who will serve as primary caregiver to pt once d/c to hospital. Denies fever, chills, chest pain, SOB, nausea, vomiting. Exam Vital Signs (past 8 hours): - 07/02/24 08:00 07/02/24 12:00 Temperature 99.4 F Pulse Rate 86 Respiratory Rate 16 18 Blood Pressure 154/64 H Pulse Oximetry 99 Oxygen Delivery Method Room Air Oxygen Flow Rate 0 Narrative Exam Narrative: Patient lying comfortably in bed during our interview today. No acute distress. AOx3. Wrist brace well fitting over the left wrist. Wiggles all fingers, gross sensation intact. Grossly normal alignment of the LLE with mild swelling throughout the LLE. 4/5 strength with DF, PF, EHL LLE. 5/5 on the right. Gross sensation intact throughout bilateral lower extremities. Calves soft and non-tender bilaterally. SCDs are not on. Brisk capillary refill, pulses intact. Post-surgical SE dressing clean, dry and intact over the left hip without drainage. Objective Labs 07/01/24 06:14 06/30/24 05:40 [facility] Medical History Trigger finger, right middle finger Chronic diarrhea Chronic neck and back pain Arthritis (Unknown) Tinnitus of both ears (Unknown) History of recurrent ear infection (Unknown) Sjogren's syndrome (1998) Mumps (~1947) Chickenpox (~1947) Chronic pain syndrome (Unknown) COPD (chronic obstructive pulmonary disease) (1998) Fractures (~1979) Osteopenia (2004) Scoliosis (2016) Cataracts, bilateral (2001) Hypothyroidism (Unknown) Surgical History History of open reduction and internal fixation (ORIF) procedure (11/2017) Hx of laminectomy (Unknown) Hx of discectomy (Unknown) History of cataract removal with insertion of prosthetic lens Status post hysterectomy Family History Father Cancer Grandmother DM (diabetes mellitus screen) Mother Cancer Grandfather DM (diabetes mellitus screen) Grandfather Mental health problem Family/Other No problems noted. Social History household members: family Smoking Status: Current every day smoker Tobacco: How many years used: 59 quit status: considering quitting second hand exposure: Yes alcohol intake: current substance use type: does not use Assessment & Plan Post-op Postoperative Procedures: Procedures Operation Date: 06/30/24 16:15 Actual Procedure Side Surgeon p Total Hip Arthroplasty/Anterior Approach Left James Weber MD Postoperative plan narrative: 1) discharge disposition per Medicine, likely SNF. 2) Continue multimodal pain management with ice to the hip for additional pain control. 3) ASA b.i.d. for DVT prophylaxis. SCDs to be on and functioning while in bed. 4) Start outpatient physical therapy to work on range of motion and mobility. Weightbearing as tolerated, maintain anterior hip precautions. 5) Keep dressing intact, clean, dry until 2 week postop appointment. No soaking the incision site in pools or tubs. No topical ointments or creams to the incision site. 6) Follow up at [facility] orthopedics in 2 weeks for a postop appointment and wound check. 7) non op treatment of radial styloid fracture with wrist brace. Okay to use walker with wrist brace. 8) Quit smoking in order to have a better ability to be able to heal her wound in her anterior hip and avoid infection. All patient and her families questions were answered, they demonstrates understanding and are in agreement with the plan. Call our office if any questions or concerns arise. Quality VTE Deep Vein Thrombosis/Pulmonary Embolism Present on Admission: No
--- NOTE | 2024-07-02 16:15 | OT.IP.TRT ---
Current Diagnoses Fracture of unspecified part of neck of left femur, initial encounter for closed fracture (06/30/24) Surgery Performed Operation Date: 06/30/24 16:15 Actual Procedures p Total Hip Arthroplasty/Anterior Approach(Left) - James Weber MD Occupational Therapy Treatment Note M2 OT-IP Current Condition Start: 07/01/24 12:34 Freq: Status: Active Protocol: Document 07/01/24 12:35 [facility] (Rec: 07/01/24 12:53 [facility] [id number]) Occupational Therapy Current Condition Current Condition Evaluation Date 07/01/24 Treatment Diagnosis GLF S/P L OLY and Left small fx of tip of left radial styloid Diagnosis Onset Date 06/30/24 Weight Bearing Status Weight Bearing Status Weight Bear as Tolerated Allowed Weight Bearing Amount (enter % Left wrist can use it for or #) (%) ambulation if able to tolerate with brace on. M3 OT- IP Subjective and Pain Start: 07/01/24 12:34 Freq: Status: Active Protocol: Document 07/02/24 16:44 [facility] (Rec: 07/02/24 17:03 [facility] [id number]) OT- Subjective Occupational Therapy Visit Type Type Treatment Note Visit Start Time 16:15 Visit Stop Time 16:43 Occupational Therapy Visit Comments Patient Comments Pt agreed to get up to do cognitive assessment and to use the bathroom. Patient/Caregiver Goals To get better. OT Pain Assessment Pain When Pain Assessed During Mobility Pain Present Pain Present Pain Reported Location Left Hip Pain Behaviors Facial Grimacing,Wincing M4 OT- IP ADL's Start: 07/01/24 12:34 Freq: Status: Active Protocol: Document 07/02/24 16:44 [facility] (Rec: 07/02/24 17:03 [facility] [id number]) OT [id number] Comments OT Self-Feeding Comments Not at meal time. OT ADL-Grooming Comments OT Grooming Comments Pt not wanting to do at this time. OT ADL-Oral Care Comments Oral Care Comments Not performed. OT ADL-Dressing General Eval Lower Body Dressing Ability Maximum Assistance Areas Needing Assistance Underpants/Brief Comments OT Dressing Comments Assist for brief over her feet and up over her hips. OT ADL-Toileting General Evaluation Toileting Ability Moderate Assistance Areas Needing Assistance Manage Clothing Comments OT Toileting Comments Pt needing assist for brief management needs and for her balance while standing when brief being pulled up. OT ADL-Bathing Comments OT Bathing Comments NOt performed. M5 OT- IP IADL's Start: 07/01/24 12:34 Freq: Status: Active Protocol: Document 07/01/24 12:35 [facility] (Rec: 07/01/24 12:53 [facility] [id number]) OT-Instrumental Activities of Daily Living Deficits IADL Deficits Identified Deficits Home Safety Awareness Awareness of Need for Assistance at Home Decreased Awareness Ability to Problem Solve Emergency Able to Problem Solve Situations Home Safety Comments Pt is very groggy and not able to think well. Pt states does not take medications at home and realizes that she is not thinking well. Medication Management Medication Management Comments At this time pt will benefit from assist. Money Management Money Management Comments At this time pt will benefit from assist. Meal Preparation Meal Preparation Comments Pt will need assist. Supervisor Engraving Supervisor Engraving Comments Pt will need assist. M6 OT- IP Functional Cognition Start: 07/01/24 12:34 Freq: Status: Active Protocol: Document 07/02/24 16:44 [facility] (Rec: 07/02/24 17:03 [facility] [id number]) Cognitive Factors Limiting Selfcare Function Cognitive Ability Level of Alertness Confusional State,Drowsy Patient Orientation Name,Place,Situation Attention Span Ability Capable of Focused Attention, Unable to Sustain Attention Ability to Follow Commands Able to Follow One Step Commands with Increased Time, Able to Follow One Step Commands with Repetition Memory Description Short Term Impaired,Working Impaired Safety Awareness Decreased Recall of Precautions,Decreased Ability to Apply Precautions Cognitive Tests SLUMS Pt scored 7/30 which implies dementia. Pt is still very groggy and having difficulty to recall her precautions. Pt states she is sensitive to medications and probably not at her prior baseline. Pt thought in was 2020, thought it was Saturday, not able to subtract 100-23, only able to state 5 animals in one minute , able to recall one object after time passed, able to states 3 digit number backwards, Write the number 1- 17 for the clock face on the right side of the clock, not able to answer any on the 4 questions after paragraph read . Beneficial to redo the SLUMS when pt has cleared up. Cognitive Comments Cognitive Assessment Comments Pt is still very groggy and not able to recall her precautions. Pt did poorly on the SLUMS- however unsure if this is her baseline, new baseline or affected by the sx and pain medications. Pt not able to follow directions to scan therapist's finger and had a fixed gaze. M7 OT- IP Mobility and Balance Start: 07/01/24 12:34 Freq: Status: Active Protocol: Document 07/02/24 16:44 [facility] (Rec: 07/02/24 17:03 [facility] [id number]) OT-Transfer Assessment Sit to and From Stand Sit to and from Stand Moderate Assistance,Maximum Assistance Transfers Transfer Ability Moderate Assistance Technique Transfer Destination Chair,Toilet Transfer Technique Stand Step Pivot Devices Transfer Assistive Devices Gait Belt,Front Wheeled Walker Comments Mobility Comments MOD to MAX XA to stand to the FWW. Pt needing more assist for use of the FWW at this time as unsteady on her feet. OT- Balance Assessment Sitting Balance and Reactions Static Sitting Balance Ability Good Dynamic Sitting Balance Ability Fair Standing Balance and Reactions Static Standing Balance Ability Fair Dynamic Standing Balance Ability Poor M8 OT- IP Objective Assessments Start: 07/01/24 12:34 Freq: Status: Active Protocol: Document 07/01/24 12:35 [facility] (Rec: 07/01/24 12:53 [facility] [id number]) OT Gross Range of Motion Upper Extremity Range of Motion Assessment Left Impaired ROM Impairments Pt able to open and close her left hand . OT Strength Upper Extremity Strength Assessment Left Impaired Comments Strength Comments Left hand in wrist brace. M9 OT- IP Assessment and Plan Start: 07/01/24 12:34 Freq: Status: Active Protocol: Document 07/02/24 16:44 [facility] (Rec: 07/02/24 17:03 [facility] [id number]) OT Summary Assessment and Plan Potential Rehabilitation Potential Good Analytic Complexity at Evaluation Moderate Summary OT Impairments Pain,Strength,Balance, Functional Cognition, Functional Mobility,Grooming, Dressing,Toileting,Bathing, Toilet Transfers,Shower Transfers,Activity Tolerance Progress Towards Goals Slow Progress due to Pain,Slow Progress due to Cognition Assessment Summary Pt having more pain and needing more assist for ADl and mobility needs. Pt scored 7/30 on the SLUMS which implies dementia- however may not be her baseline as still very groggy and per pt states is sensitive to pain medications. Pt to go to skilled rehab when medically stable. Goals Self-Feeding Goal Independent Grooming Goal Independent Dressing Goal Independent Toileting Goal Independent Bathing Goal Independent Toilet Transfer Goal Independent Shower Transfer Goal Independent Days to Meet Goals 14 Frequency of Treatment Other frequency 5x/week Treatment Plan OT Treatment Plan ADL Training,Functional Cognition Training,Functional Mobility,Patient/Family Education,Discharge Planning Other Treatment Recommendations and Next Standing ADL needs. Treatment Focus Discharge Recommendations OT Discharge Recommendations SNF Rehab Transportation Needs at Discharge Wheelchair/Cabulance
--- NOTE | 2024-07-02 16:36 | P.PN_ITS ---
Subjective Subjective Interval history: doing well, awaiting placement. still having a little pain but otherwise doing well. Exam Vital Signs (past 8 hours): - 07/02/24 12:00 Respiratory Rate 18 Oxygen Delivery Method Room Air Oxygen Flow Rate 0 Narrative Exam Narrative: gen: lying comfortably in bed. not in distress MSK: left wrist splint in place moving all fingers, sensation intact , post surgical dressing over left hip clean neuro: alert and oriented psych: pleasant Objective Labs 07/01/24 06:14 06/30/24 05:40 [facility] Medical History Trigger finger, right middle finger Chronic diarrhea Chronic neck and back pain Arthritis (Unknown) Tinnitus of both ears (Unknown) History of recurrent ear infection (Unknown) Sjogren's syndrome (1998) Mumps (~1947) Chickenpox (~1947) Chronic pain syndrome (Unknown) COPD (chronic obstructive pulmonary disease) (1998) Fractures (~1979) Osteopenia (2004) Scoliosis (2015) Cataracts, bilateral (2001) Hypothyroidism (Unknown) Surgical History History of open reduction and internal fixation (ORIF) procedure (11/2017) Hx of laminectomy (Unknown) Hx of discectomy (Unknown) History of cataract removal with insertion of prosthetic lens Status post hysterectomy Family History Father Cancer Grandmother DM (diabetes mellitus screen) Mother Cancer Grandfather DM (diabetes mellitus screen) Grandfather Mental health problem Family/Other No problems noted. Social History household members: family Smoking Status: Current every day smoker Tobacco: How many years used: 59 quit status: considering quitting second hand exposure: Yes alcohol intake: current substance use type: does not use Assessment & Plan Assessment & Plan narrative: #Mechanical Fall with resulting left femoral neck fracture s/p left total hip arthoplasty #Left radial styloid fracture, nondisplaced -stable for discharge when placement found -pt/ot -ortho following appreciate recommendations -pain control -lovenox for dvt ppx while hospitalized. can transition to ASA BID on discharge for DVT PPx Home Med Rec -continue home levothyroxine DVT PPx: Lovenox + SCD CODE: waste cotton cleaner-Based Coding :: [TOTAL MINUTES] spent with patient and on the chart (including review of chart, obtaining history, exam, reviewing outside data, placing orders, documenting exam and treatment plan, and counseling patient) on [DATE]. Quality VTE Deep Vein Thrombosis/Pulmonary Embolism Present on Admission: No
--- NOTE | 2024-07-02 16:41 | PC.NURSE ---
Pt resting at intervals T/O day. Med x 2 for discomfort w/ good relief Sat in chair good portion of day. SE dsg CDI SL RFA intact/patent. Pt hoping to discharge tomorrow. Call light w/in reach, bed alarm on for pt safety. Continue w/plan of care.
--- NOTE | 2024-07-02 16:47 | PT.IPTN ---
Current Diagnoses Fracture of unspecified part of neck of left femur, initial encounter for closed fracture (06/30/24) Surgery Performed Operation Date: 06/30/24 16:15 Actual Procedures p Total Hip Arthroplasty/Anterior Approach(Left) - James Weber MD Physical Therapy Treatment Note M2 PT-IP Current Condition Start: 07/01/24 12:53 Freq: NEEDED Status: Active Protocol: Document 07/01/24 09:15 AB (Rec: 07/01/24 13:18 AB [id number]) Physical Therapy Current Condition Current Condition Evaluation Date 07/01/24 Treatment Diagnosis s/p L OLY anterior; difficulty in walking Onset Date 06/30/24 M3 PT-IP Subjective Start: 07/01/24 12:53 Freq: NEEDED Status: Active Protocol: Document 07/02/24 16:20 MB (Rec: 07/02/24 16:47 MB [id number]) Subjective Physical Therapy Visit Type Type Treatment Note Visit Start Time 16:20 Visit Stop Time 16:40 Number of EDITORIAL INTERN Visits 0 Physical Therapy Visit Comments Patient Comments Pt agreeable to PT, presents with confusion and has trouble following commands. Therapy Pain Assessment Pain When Pain Assessed At Rest Pain Present Pain Present Pain Reported Location Left Hip Intensity 6 Scale Used HoldenJayleneStrange (Faces) M4 PT-IP Mobility and Gait Start: 07/01/24 12:53 Freq: NEEDED Status: Active Protocol: Document 07/02/24 16:20 MB (Rec: 07/02/24 16:47 MB [id number]) PT-Transfer Assessment Sit to and From Stand Sit to and from Stand Moderate Assistance,Maximum Assistance,1 Person Assistance ,Use of Upper Extremities Equipment Transfer Assistive Device Gait Belt,Front Wheeled Walker Orthotic/Prosthetic Devices or Brace: Yes Comments Mobility Comments PT provides max A and ongoing cues to push up from chair with right hand for STS from chair to RW. Stand to sit on commode, cues to hold rail with right hand and to sit. For sitting back in chair, pt does not reach back for the chair with right hand despite cues. Gait Assessment Gait Gait Assistance Required: Minimum Assistance Distance (Feet) 15 Able to Maintain Weight Bearing Status Yes During Gait Gait Deviations General Gait Pattern Step-to Gait Factors Limiting Gait Function Factors Limiting Gait Function Decreased Activity Tolerance, Decreased Strength,Difficulty Following Directions,Limited Range of Motion,Pain,Poor Balance,Poor Safety Awareness Comments Gait Comments Cues for RW, then left and then right foot for gait forward and pt gait trains 15' x2. Pt lets go of walker twice and once, reaches for rolling table PT-Balance Assessment Sitting Balance and Reactions Static Sitting Balance Ability Fair Dynamic Sitting Balance Ability Poor Standing Balance and Reactions Static Standing Balance Ability Fair Dynamic Standing Balance Ability Poor Device Used RW M5 PT-IP Objective Assessments Start: 07/01/24 12:53 Freq: NEEDED Status: Active Protocol: Document 07/01/24 09:15 AB (Rec: 07/01/24 13:18 AB [id number]) Orientation Orientation/Cognition Level of Alertness Alert Orientation Name,Place,Situation Language Function Ability Hard of Hearing Safety Awareness Decreased Safety Awareness Memory Description Short Term Impaired Gross Range of Motion Lower Extremity ROM Assessment Within Functional Limits Strength Lower Extremity Strength Assessment Left Impaired Hip 3-/5 Knee 3+/5 Sensation Assessment Sensation Gross Sensation WNL Muscle Tone Muscle Tone WNL Yes M6 PT-IP Treatment Start: 07/01/24 12:53 Freq: NEEDED Status: Active Protocol: Document 07/02/24 16:20 MB (Rec: 07/02/24 16:47 MB [id number]) Physical Therapy Treatment Other Treatments Other Treatment Performed Reviewed anterior hip precautions M7 PT-IP Assessment and Plan Start: 07/01/24 12:53 Freq: NEEDED Status: Active Protocol: Document 07/02/24 16:20 MB (Rec: 07/02/24 16:47 MB [id number]) PT Summary Assessment and Plan Potential Rehabilitation Potential Fair Summary Impairments Pain,ROM,Strength,Balance, Coordination,Sensation,Tone, Cognition,Bed Mobility, Transfers,Gait,Activity Tolerance Progress Towards Goals Slow Progress due to Pain,Slow Progress due to Activity Tolerance Assessment Summary Pt does worse functionally today and reports pain and presents with confusion. She will require 24 hour assistance and PT at d/c, recommend SNF. Goals Bed Mobility Goal Contact Guard Assistance Transfer Goal Contact Guard Assistance,Front Wheeled Walker Gait Goal Contact Guard Assistance,Front Wheel Walker Gait Distance 75 Other Goals up/down 1 step using FWW SBA Days to Meet Goals 5 Frequency of Treatment Frequency Of Treatment Once a Day Treatment Plan Physical Therapy Treatment Plan Bed Mobility Training,Transfer Training,Gait Training, Therapeutic Exercise,Balance Retraining,Post Op Education, Discharge Planning,Hot or Cold Pack,Neuromuscular Re-ed, Coordination Retraining,Manual Therapy Precautions Anterior Hip Precautions No Hip Extension,No Hip External Rotation Brace L wrist brace/support Weight Bearing Status Weight Bearing Status Weight Bear as Tolerated Allowed Weight Bearing Amount (enter % LLE WBAT or #) (%) allowed to use L wrist on FWW Recommendations To Nursing Amount of Assist Needed 1 Person Assist Discharge Recommendations PT Discharge Recommendations SNF Rehab Transportation Needs at Discharge Wheelchair/Cabulance
[2024-07-02] MEDS: ACETAMINOPHEN 325 MG TABLET 650 MG PO (17:03)
[2024-07-03] VITALS: BP 97/64; PULSE 81; RESP 18; TEMP 37.9; O2SAT 94
[2024-07-03 01:24] VITALS: TEMP 37.9
[2024-07-03] MEDS: ACETAMINOPHEN 325 MG TABLET 650 MG PO ×2 (01:24→12:32)
[2024-07-03 02:23] VITALS: TEMP 36.9
[2024-07-03] MEDS: OXYCODONE IR 5 MG TABLET PO (06:34)
[2024-07-03] MEDS: LEVOTHYROXINE 50 MCG TABLET PO (06:34)
--- NOTE | 2024-07-03 07:54 | P.PN_ITS ---
Subjective Subjective Interval history: Shanda is a pleasant 84 year old female who is POD#3 s/p left total hip arthroplasty through anterior approach by Dr. Weber. This morning patient states she is feeling much better than yesterday. Her leg feels less painful and she feels her strength and sensation are returning. She also feels her wrist is feeling better every day, no complaints w/ the fitting of the wrist brace. She mobilized some around her room with a walker yesterday w/ PT. She lives at home w/ several family members including her granddaughter who will serve as primary caregiver to pt once d/c to hospital. Denies fever, chills, chest pain, SOB, nausea, vomiting. Operative Date/Time/Diagnoses Date of procedure: 06/30/24 Pre-op diagnosis: Left femoral neck fracture Post-op diagnosis: same Procedure & Clinicians Procedure: Left total hip arthroplasty through anterior approach with cemented stem and uncemented acetabular component Same procedure as scheduled: Yes Surgeon: James Weber Click Yes if Unassisted: Yes Anesthesia Type: General and Local Operative Notes Estimated Blood Loss (mL): 200 Procedure in detail: Left Hybrid Direct Anterior Depuy Total Hip Arthroplasty with Uncemented Acetabular Component and Cemented Femoral Component: Implants: * Vang and nephew R3 size 54 cup?with 2 screws * Polar stem cemented femoral stem size 2 standard offset? * 36 mm-3 Oxinium femoral head? Exam Vital Signs (past 8 hours): - 07/03/24 00:00 07/03/24 01:24 07/03/24 02:23 Temperature 100.2 F H 100.2 F H 98.5 F Pulse Rate 81 Respiratory Rate 18 Blood Pressure 97/64 Pulse Oximetry 94 Oxygen Flow Rate 0 Oxygen Delivery Method Room Air Oxygen Flow Rate 0 Narrative Exam Narrative: Patient lying comfortably in bed during our interview today. No acute distress. AOx3. Wrist brace well fitting over the left wrist. Wiggles all fingers, gross sensation intact. Grossly normal alignment of the LLE with mild swelling throughout the LLE. 4/5 strength with DF, PF, EHL LLE. 5/5 on the right. Gross sensation intact throughout bilateral lower extremities. Calves soft and non-tender bilaterally. SCDs are on and functioning. Brisk capillary refill, pulses intact. Post-surgical SE dressing clean, dry and intact over the left hip without drainage. Objective Labs 07/01/24 06:14 06/30/24 05:40 [facility] Medical History Trigger finger, right middle finger Chronic diarrhea Chronic neck and back pain Arthritis (Unknown) Tinnitus of both ears (Unknown) History of recurrent ear infection (Unknown) Sjogren's syndrome (1998) Mumps (~1947) Chickenpox (~1947) Chronic pain syndrome (Unknown) COPD (chronic obstructive pulmonary disease) (1998) Fractures (~1980) Osteopenia (2004) Scoliosis (2015) Cataracts, bilateral (2001) Hypothyroidism (Unknown) Surgical History History of open reduction and internal fixation (ORIF) procedure (11/2017) Hx of laminectomy (Unknown) Hx of discectomy (Unknown) History of cataract removal with insertion of prosthetic lens Status post hysterectomy Family History Father Cancer Grandmother DM (diabetes mellitus screen) Mother Cancer Grandfather DM (diabetes mellitus screen) Grandfather Mental health problem Family/Other No problems noted. Social History household members: family Smoking Status: Current every day smoker Tobacco: How many years used: 59 quit status: considering quitting second hand exposure: Yes alcohol intake: current substance use type: does not use Assessment & Plan Assessment and plan (1) Fall from ground level: Status: Acute (2) Fracture of femoral neck, left: Qualifiers: Encounter type: subsequent encounter Fracture type: closed Fracture healing: with routine healing Qualified Code(s): S72.002D - Fracture of unspecified part of neck of left femur, subsequent encounter for closed fracture with routine healing Status: Acute (3) Acute pain of left wrist: Status: Acute Plan 1) discharge disposition per Medicine, currently plan is SNF once placement available. 2) Continue multimodal pain management with ice to the hip for additional pain control. 3) ASA b.i.d. for DVT prophylaxis once d/c from hospital, currently getting lovenox. SCDs to be on and functioning while in bed. 4) Contiue to work w/ physical therapy to improve mobility. Weightbearing as tolerated, maintain anterior hip precautions. 5) Keep dressing intact, clean, dry until 2 week postop appointment. No soaking the incision site in pools or tubs. No topical ointments or creams to the incision site. 6) Follow up at [facility] in 2 weeks for a postop appointment and wound check. 7) Non op treatment of radial styloid fracture with wrist brace. Okay to use walker with wrist brace. 8) Quit smoking in order to have a better ability to be able to heal her wound in her anterior hip and avoid infection. Time-Based Coding :: [TOTAL MINUTES] spent with patient and on the chart (including review of chart, obtaining history, exam, reviewing outside data, placing orders, documenting exam and treatment plan, and counseling patient) on [DATE]. Quality VTE Deep Vein Thrombosis/Pulmonary Embolism Present on Admission: No
[2024-07-03 08:00] VITALS: BP 128/67; PULSE 82; RESP 16; TEMP 36.7; O2SAT 98
[2024-07-03] MEDS: ASPIRIN EC 81 MG TABLET PO (09:36)
[2024-07-03] MEDS: BUSPIRONE 5 MG TABLET PO (09:36)
[2024-07-03] MEDS: GABAPENTIN 100 MG CAPSULE 200 MG PO ×2 (09:37→12:32)
[2024-07-03] MEDS: ENOXAPARIN 40 MG/0.4 ML SYRINGE SUBCUT (09:37)
[2024-07-03] MEDS: DOCUSATE 100 MG CAPSULE PO (09:37)
[2024-07-03] MEDS: SODIUM CHLORIDE 0.9% FLUSH 10 ML IV (09:37)
--- NOTE | 2024-07-03 10:16 | P.DS_ITS ---
History of Present Illness History of Present Illness Chief complaint: GLF/Wrist Pain Narrative: From H&P: 84 y.o. F with history of hypothyroidism and presenting after mechanical ground level fall resulting in L femoral neck fracture. Patient was experiencing some minor pain the left hip area but was otherwise doing well. Ortho was consulted on admission and plan to take her to the OR possibly this afternoon. Discharge Providers Provider Date of admission: 06/30/24 08:02 Discharge Date: 07/03/24 Primary care physician: Kenton Salas DO Consults: 06/30/24 06:30 Consult to Orthopedic Surgery Stat Comment: Consulting Provider: James Weber Reason for consultation: L FEMORAL NECK FX Has provider been notified: Yes 06/30/24 20:08 Consult to Discharge Planning Routine Comment: Consult to Occupational Therapy Evaluate & Treat Comment: Physician Instructions: Evaluate and treat Consult to Physical Therapy Evaluate & Treat Comment: Physician Instructions: post op OLY protocol Discharge provider: Paulie Philip MD Summary Hospital Course Discharge Diagnosis: 1. Mechanical Fall with resulting left femoral neck fracture s/p left total hip arthoplasty, present on admission and improved. 2. Left radial styloid fracture, nondisplaced, present on admission and stable. 3. Hypothyroidism, present on admission and stable. Hospital Course: The patient was admitted and underwent operative repair of a left femoral neck fracture without complication. The patient has a nondisplaced left radial styloid fracture. The patient was stable for [facility] for ongoing rehabilitative efforts. The patient has weight-bearing as tolerated we will follow up with Orthopedics. Aspirin b.i.d. will be given for DVT prophylaxis. No other medical conditions were active during the encounter. Status at Discharge Cognitive/behavioral status at discharge: oriented Functional status at discharge: uses cane/walker Overall status at discharge: patient is progressing back to baseline Time Spent with Patient Time spent: Greater than 30 minutes Exam Vital Signs (past 8 hours): - 07/03/24 02:23 07/03/24 08:00 Temperature 98.5 F 98.0 F Pulse Rate 82 Respiratory Rate 16 Blood Pressure 128/67 Pulse Oximetry 98 Oxygen Delivery Method Room Air Oxygen Flow Rate 0 Narrative Exam Narrative: NAD, alert and oriented. Fluent speech. Lungs are clear, normal rate and effort. Heart is regular, no murmur gallop or rub. Abdomen is soft, non distended. Extremities are free of edema. Objective Imaging Multiple studies: : Radiologist's impression: Chest x-ray: Focal mid/lower lobe opacities suggestive of pneumonia. Wrist x-ray: No visualized acute fracture or dislocation. However, if clinical concern and/or pain persist, short interval imaging followup in 7-10 days is recommended, as occult injury cannot be definitively excluded. The above findings are concordant with preliminary report. Pelvis x-ray: Arthritic changes. No visualized acute fracture or dislocation. However, if clinical concern and/or pain persist, short interval imaging followup in 7-10 days is recommended, as occult injury cannot be definitively excluded. Femur x-ray: No visualized acute fracture or dislocation. However, if clinical concern and/or pain persist, short interval imaging followup in 7-10 days is recommended, as occult injury cannot be definitively excluded. Hip x-ray: Left hip arthroplasty projects in the expected location. Labs 07/01/24 06:14 06/30/24 05:40 [facility] Medical History Trigger finger, right middle finger Chronic diarrhea Chronic neck and back pain Arthritis (Unknown) Tinnitus of both ears (Unknown) History of recurrent ear infection (Unknown) Sjogren's syndrome (1998) Mumps (~1947) Chickenpox (~1947) Chronic pain syndrome (Unknown) COPD (chronic obstructive pulmonary disease) (1998) Fractures (~1980) Osteopenia (2004) Scoliosis (2016) Cataracts, bilateral (2001) Hypothyroidism (Unknown) Surgical History History of open reduction and internal fixation (ORIF) procedure (11/2017) Hx of laminectomy (Unknown) Hx of discectomy (Unknown) History of cataract removal with insertion of prosthetic lens Status post hysterectomy Family History Father Cancer Grandmother DM (diabetes mellitus screen) Mother Cancer Grandfather DM (diabetes mellitus screen) Grandfather Mental health problem Family/Other No problems noted. Social History household members: family Smoking Status: Current every day smoker Tobacco: How many years used: 59 quit status: considering quitting second hand exposure: Yes alcohol intake: current substance use type: does not use Discharge Assessment & Plan Assessment and Plan Assessment: 1. Mechanical Fall with resulting left femoral neck fracture s/p left total hip arthoplasty, present on admission and improved. 2. Left radial styloid fracture, nondisplaced, present on admission and stable. 3. Hypothyroidism, present on admission and stable. Plan of Treatment: [facility]charge to [facility] for ongoing rehabilitative efforts. Discharge Plan Discharge Plan Patient Disposition: SNF Transfer to: [facility] Under care of provider: Dr Hale Provider Discharge Comment: Stable for discharge to [facility] facility. Discharge orders & Medications Prescriptions: New aspirin 81 mg Tablet,Delayed Release (Dr/Ec) 81 mg PO BID Qty: 60 0RF oxycodone 5 mg Tablet 5 mg PO Q4HR PRN (Reason: Pain, Moderate (4-6)) Qty: 14 0RF Continued loperamide [Imodium A-D] 1 mg/7.5 mL liquid 1 mg PO DAILY PRN (Reason: diarrhea) Qty: 0 ezetimibe 10 mg tablet See Rx Instructions .ROUTE .COMPLEX Qty: 90 0RF Dose Instruction: TAKE ONE TABLET BY MOUTH ONE TIME DAILY Rx Instructions: TAKE ONE TABLET BY MOUTH ONE TIME DAILY cyclobenzaprine 10 mg tablet 10 mg PO DAILY PRN (Reason: muscle spasm) Qty: 30 5RF levothyroxine 50 mcg tablet See Rx Instructions .ROUTE .COMPLEX Qty: 90 1RF Dose Instruction: TAKE ONE TABLET BY MOUTH ONE TIME DAILY Rx Instructions: TAKE ONE TABLET BY MOUTH ONE TIME DAILY Probiotic 1 tab PO PRN PRN (Reason: Diarrhea) cholecalciferol (vitamin D3) 100 mcg (4,000 unit) tablet 200 mcg PO DAILY melatonin 5 mg tablet 5 mg PO BEDTIME PRN (Reason: insomnia) omega-3 fatty acids [Fish Oil Concentrate] 1,000 mg capsule 1,000 mg PO DAILY multivitamin Tablet 1 tab PO DAILY Discontinued acetaminophen-codeine 300-30 mg tablet 1 tab PO BID PRN (Reason: pain) Qty: 10 0RF Follow up/Referrals: Kenton Salas DO [Primary Care Provider] - Discharge Health Status Multidrug resistant organism: No MDRO Diet/Activity/Treatments Diet: Regular Food texture: Regular [facility] Reason for rehabilitation: Post-operative therapy Rehab type: Physical therapy and Occupational therapy Visit Report/Discharge Packet Instructions: DI for Hip Replacement Stand Alone Forms: Patient Portal/API, Surgery Discharge Discharge Data Primary Care Provider: Kenton Salas VTE Deep Vein Thrombosis/Pulmonary Embolism Present on Admission: No
--- NOTE | 2024-07-03 10:55 | PC.NURSE ---
Patient is alert and oriented x3 this morning, she is lying supine. Alvino dressing is cdi. Voices no discomfort at this time. Patient will be going to Snf at 1300.
--- NOTE | 2024-07-03 11:40 | PT.IPTN ---
Current Diagnoses Pain in left wrist (06/30/24) Fracture of unspecified part of neck of left femur, initial encounter for closed fracture (06/30/24) Fracture of unspecified part of neck of left femur, subsequent encounter for closed fracture with routine healing (06/30/24) Fall on same level, unspecified, initial encounter (06/30/24) Surgery Performed Operation Date: 06/30/24 16:15 Actual Procedures p Total Hip Arthroplasty/Anterior Approach(Left) - James Weber MD Physical Therapy Treatment Note M2 PT-IP Current Condition Start: 07/01/24 12:53 Freq: NEEDED Status: Active Protocol: Document 07/01/24 09:15 AB (Rec: 07/01/24 13:18 AB [id number]) Physical Therapy Current Condition Current Condition Evaluation Date 07/01/24 Treatment Diagnosis s/p L OLY anterior; difficulty in walking Onset Date 06/30/24 M3 PT-IP Subjective Start: 07/01/24 12:53 Freq: NEEDED Status: Active Protocol: Document 07/03/24 12:03 TS (Rec: 07/03/24 12:14 TS [id number]) Subjective Physical Therapy Visit Type Type Treatment Note Visit Start Time 11:40 Visit Stop Time 12:00 Number of LEADERSHIP COACH Visits 1 Physical Therapy Visit Comments Patient Comments Pt found resting in bed, reports feeling a little better, still can't move her LLE well. She is agreeable to PT. Therapy Pain Assessment Pain When Pain Assessed During Mobility Pain Present Pain Present Pain Reported M4 PT-IP Mobility and Gait Start: 07/01/24 12:53 Freq: NEEDED Status: Active Protocol: Document 07/03/24 12:03 TS (Rec: 07/03/24 12:14 TS [id number]) PT-Bed Mobility Assessment Supine to Sit Supine to Sit Maximum Assistance,1 Person Assistance,Head of Bed Elevated,Bedrails Scooting Scooting to Edge of Bed Contact Guard Assistance PT-Transfer Assessment Sit to and From Stand Sit to and from Stand Moderate Assistance,1 Person Assistance Equipment Transfer Assistive Device Gait Belt,Front Wheeled Walker Orthotic/Prosthetic Devices or Brace: Yes Comments Mobility Comments Supine to sit MaxA for uprighting trunk, pt uses BUE support, JUAN A has wrist brace for fx. STS with FWW ModA from bed. She ambulates with a slow antalgic step to gait with FWW, she requires cues for step sequencing. Pt fatigues quickly and requests to sit in chair. Pt was left in chair, all needs met. Gait Assessment Gait Gait Assistance Required: Minimum Assistance Distance (Feet) 15 Able to Maintain Weight Bearing Status Yes During Gait Assistive Devices Assistive Device Gait Belt,Front Wheeled Walker Gait Deviations General Gait Pattern Antalgic,Decreased Stride Length,Decreased Feet Clearance,Flexed Trunk,Step-to Gait Factors Limiting Gait Function Factors Limiting Gait Function Decreased Activity Tolerance, Decreased Strength,Difficulty Following Directions,Limited Range of Motion,Pain,Poor Balance,Poor Safety Awareness PT-Balance Assessment Sitting Balance and Reactions Static Sitting Balance Ability Fair Dynamic Sitting Balance Ability Fair Standing Balance and Reactions Static Standing Balance Ability Fair Dynamic Standing Balance Ability Poor Device Used FWW M5 PT-IP Objective Assessments Start: 07/01/24 12:53 Freq: NEEDED Status: Active Protocol: Document 07/01/24 09:15 AB (Rec: 07/01/24 13:18 AB [id number]) Orientation Orientation/Cognition Level of Alertness Alert Orientation Name,Place,Situation Language Function Ability Hard of Hearing Safety Awareness Decreased Safety Awareness Memory Description Short Term Impaired Gross Range of Motion Lower Extremity ROM Assessment Within Functional Limits Strength Lower Extremity Strength Assessment Left Impaired Hip 3-/5 Knee 3+/5 Sensation Assessment Sensation Gross Sensation WNL Muscle Tone Muscle Tone WNL Yes M6 PT-IP Treatment Start: 07/01/24 12:53 Freq: NEEDED Status: Active Protocol: Document 07/03/24 12:03 TS (Rec: 07/03/24 12:14 TS [id number]) Physical Therapy Treatment Education Education Provided Precautions,Weight Bearing Status,Post-Op Packet,Safety M7 PT-IP Assessment and Plan Start: 07/01/24 12:53 Freq: NEEDED Status: Active Protocol: Document 07/03/24 12:03 TS (Rec: 07/03/24 12:14 TS [id number]) PT Summary Assessment and Plan Potential Rehabilitation Potential Fair Summary Impairments Pain,ROM,Strength,Balance, Coordination,Sensation,Tone, Cognition,Bed Mobility, Transfers,Gait,Activity Tolerance Progress Towards Goals Slow Progress due to Pain,Slow Progress due to Activity Tolerance Assessment Summary Shanda continues to have poor activity tolerance and pain limiting her mobility. She continues to ambulate short distances in the room with FWW . PT continues to recommend SNF. Goals Bed Mobility Goal Contact Guard Assistance Transfer Goal Contact Guard Assistance,Front Wheeled Walker Gait Goal Contact Guard Assistance,Front Wheel Walker Gait Distance 75 Other Goals up/down 1 step using FWW SBA Days to Meet Goals 5 Frequency of Treatment Frequency Of Treatment Once a Day Treatment Plan Physical Therapy Treatment Plan Bed Mobility Training,Transfer Training,Gait Training, Therapeutic Exercise,Balance Retraining,Post Op Education, Discharge Planning,Hot or Cold Pack,Neuromuscular Re-ed, Coordination Retraining,Manual Therapy Precautions Anterior Hip Precautions No Hip Extension,No Hip External Rotation Brace L wrist brace/support Weight Bearing Status Weight Bearing Status Weight Bear as Tolerated Allowed Weight Bearing Amount (enter % LLE WBAT or #) (%) allowed to use L wrist on FWW Recommendations To Nursing Amount of Assist Needed 1 Person Assist Discharge Recommendations PT Discharge Recommendations SNF Rehab Transportation Needs at Discharge Wheelchair/Cabulance
--- NOTE | 2024-07-03 11:55 | OT.IP.TRT ---
Current Diagnoses Pain in left wrist (06/30/24) Fracture of unspecified part of neck of left femur, initial encounter for closed fracture (06/30/24) Fracture of unspecified part of neck of left femur, subsequent encounter for closed fracture with routine healing (06/30/24) Fall on same level, unspecified, initial encounter (06/30/24) Surgery Performed Operation Date: 06/30/24 16:15 Actual Procedures p Total Hip Arthroplasty/Anterior Approach(Left) - James Weber MD Occupational Therapy Treatment Note M2 OT-IP Current Condition Start: 07/01/24 12:34 Freq: Status: Active Protocol: Document 07/01/24 12:35 [facility] (Rec: 07/01/24 12:53 [facility] [id number]) Occupational Therapy Current Condition Current Condition Evaluation Date 07/01/24 Treatment Diagnosis GLF S/P L OLY and Left small fx of tip of left radial styloid Diagnosis Onset Date 06/30/24 Weight Bearing Status Weight Bearing Status Weight Bear as Tolerated Allowed Weight Bearing Amount (enter % Left wrist can use it for or #) (%) ambulation if able to tolerate with brace on. M3 OT- IP Subjective and Pain Start: 07/01/24 12:34 Freq: Status: Active Protocol: Document 07/03/24 12:15 [facility] (Rec: 07/03/24 12:22 [facility] [id number]) OT- Subjective Occupational Therapy Visit Type Type Treatment Note Visit Start Time 11:55 Visit Stop Time 12:15 Occupational Therapy Visit Comments Patient Comments Pt agreed to redo SLUMS. Patient/Caregiver Goals To get better. OT Pain Assessment Pain When Pain Assessed At Rest Pain Present Pain Present Denied Pain Document 07/01/24 12:35 [facility] (Rec: 07/01/24 12:53 [facility] [id number]) OT-Instrumental Activities of Daily Living Deficits IADL Deficits Identified Deficits Home Safety Awareness Awareness of Need for Assistance at Home Decreased Awareness Ability to Problem Solve Emergency Able to Problem Solve Situations Home Safety Comments Pt is very groggy and not able to think well. Pt states does not take medications at home and realizes that she is not thinking well. Medication Management Medication Management Comments At this time pt will benefit from assist. Money Management Money Management Comments At this time pt will benefit from assist. Meal Preparation Meal Preparation Comments Pt will need assist. Compressor Station Chief Engineer Compressor Station Chief Engineer Comments Pt will need assist. M6 OT- IP Functional Cognition Start: 07/01/24 12:34 Freq: Status: Active Protocol: Document 07/03/24 12:15 [facility] (Rec: 07/03/24 12:22 [facility] [id number]) Cognitive Factors Limiting Selfcare Function Cognitive Ability Level of Alertness Alert,Confusional State Patient Orientation Name,Place,Situation Attention Span Ability Capable of Focused Attention, Capable of Sustained Attention Ability to Follow Commands Able to Follow One Step Commands with Increased Time, Able to Follow One Step Commands with Repetition Memory Description Short Term Impaired,Working Impaired Safety Awareness Decreased Recall of Precautions,Decreased Ability to Apply Precautions Cognitive Tests SLUMS Pt scored /30 on the SLUMS and able to states date of the week, and states 11 animals versus 5 yesterday, pt able to answer 2/4 questions after paragraph read. Cognitive Comments Cognitive Assessment Comments Pt still having low score on the SLUMS. Pt still insisted that she is very sensitive to medications and not at her baseline. M8 OT- IP Objective Assessments Start: 07/01/24 12:34 Freq: Status: Active Protocol: Document 07/01/24 12:35 [facility] (Rec: 07/01/24 12:53 [facility] [id number]) OT Gross Range of Motion Upper Extremity Range of Motion Assessment Left Impaired ROM Impairments Pt able to open and close her left hand . OT Strength Upper Extremity Strength Assessment Left Impaired Comments Strength Comments Left hand in wrist brace. M9 OT- IP Assessment and Plan Start: 07/01/24 12:34 Freq: Status: Active Protocol: Document 07/03/24 12:22 [facility] (Rec: 07/03/24 12:25 [facility] [id number]) OT Summary Assessment and Plan Potential Rehabilitation Potential Good Analytic Complexity at Evaluation Moderate Summary OT Impairments Pain,Strength,Balance, Functional Cognition, Functional Mobility,Grooming, Dressing,Toileting,Bathing, Toilet Transfers,Shower Transfers,Activity Tolerance Progress Towards Goals Slow Progress due to Pain,Slow Progress due to Cognition Assessment Summary Pt scored a little better on the SLUMS 10/19, however still appears not at her baseline as pt insists she is very sensitive to medications. Pt also has difficulty to scan her eyes when asked. Pt to go to skilled rehab when medically stable. Goals Self-Feeding Goal Independent Grooming Goal Independent Dressing Goal Independent Toileting Goal Independent Bathing Goal Independent Toilet Transfer Goal Independent Shower Transfer Goal Independent Days to Meet Goals 14 Frequency of Treatment Other frequency 5x/week Treatment Plan OT Treatment Plan ADL Training,Functional Cognition Training,Functional Mobility,Patient/Family Education,Discharge Planning Discharge Recommendations OT Discharge Recommendations SNF Rehab Transportation Needs at Discharge Wheelchair/Cabulance
--- NOTE | 2024-07-03 13:11 | CM.DANOTE ---
Initial DCP Assessment Note Late Entry Pt is a 84yo female, resident of [place], arrives after GLF, subsequent hip fx s/pp repair and wrist fx (non operable) PCP: Kenton Salas Payer: MCR/[employer] Reviewed chart, discussed discharge plan with patient over the last 24 hrs. Patient lives independently with her family. Therapies currently recommending SNF and patient agreeable. Patient prefers [facility]. Referral placed to [facility] and patient accepted for admission today 07/03. Wheelchair transport. Bedside RN updated. SNF orders, signed med list, Rx and Hosp exempt PASRR emailed to Swetha at [facility]. Hosp exempt PASRR faxed to ROGER Ring dairy consultant. Plan: Discharge to [facility] via wheelchair van today. ZENON Floers Discharge Planning/Care Management CM Discharge Assessment Start: 07/03/24 13:05 Freq: Status: Active Protocol: Document 07/03/24 13:05 RICHARD (Rec: 07/03/24 13:11 [id number]) Discharge Planning Assessment Assigned Paraplanner ZENON Villavicencio DPOA/Assigned Designee Name Jay Alvarenga, grand daughter Contact Information [phone], Advance Directives? Yes: POLST Advance Directives on File No History Provided By Patient,Medical Record Prior Living Arrangements House Household Members family Type of transporation used prior to Drives own vehicle admit Independent with ADL's Yes Is patient alert and oriented? Yes Patient/Family Preference Prison Facility Barriers to Discharge No Discharge Plan Prison Facility Transportation Arrangement Wheelchair van Referrals Initiated Prison Additional Comment [facility] SNF/HH Preference [facility] Has Agency SNF been contacted Yes
== END 2024-07-03 13:25 | DRG 522 ==
LOC: ED 07:15 → AC 08:03
PROVIDERS: Emergency Medicine; Orthopaedic Surgery Adult Reconstructive Orthopaedic Surgery; Admitting Provider Student in an Organized Health Care Education/Training Program; Emergency Provider Emergency Medicine; Family Provider Family Medicine; PCP Family Medicine; Referring Provider Emergency Medicine; Visit Provider Student in an Organized Health Care Education/Training Program
PROC: 0SRB039 Replacement of Left Hip Joint with Ceramic Synthetic Substitute, Cemented, Open Approach (ICD-10-PCS; CPT 27130; principal; 2024-06-30 16:15)
DX: S72.002A Fracture of unspecified part of neck of left femur, initial encounter for closed fracture (principal); S52.515A Nondisplaced fracture of left radial styloid process, initial encounter for closed fracture; E03.9 Hypothyroidism, unspecified; K52.9 Noninfective gastroenteritis and colitis, unspecified; F17.210 Nicotine dependence, cigarettes, uncomplicated; W18.30XA Fall on same level, unspecified, initial encounter
CPT/HCPCS: 36415; 71045; 72170; 73100; 73502; 73552; 76000; 80053; 85014; 85018; 85025; 85610; 86850; 86900; 86901; 96365; 96375; 96376; 97129; 97162; 97165; 97530; 97535; 99284; C1776; J0136; J0171; J0690; J1100; J1170; J1650; J2270; J2405; J2704; J3010; J3410; J3490

== ENCOUNTER 2024-11-19 10:44 | Emergency (ER) | payer MEDICARE, SELFPAY ==
[2024-06-30 12:47] VITALS: BMI 19.7
[2024-11-19] VITALS (9 sets, daily range): BP systolic 94–127; BP diastolic 46–76; PULSE 87–115; RESP 12–22; TEMP 36.7–37.9; O2SAT 88–100; BMI 21.2
--- NOTE | 2024-11-19 11:01 | DI.RAD.S_ITS ---
PROCEDURE: XR CHEST 2V INDICATIONS: cough fever x 3 days TECHNIQUE: 2 views of the chest were acquired. COMPARISON: [facility], CR, XR CHEST 1V, 06/30/2024, 5:15. FINDINGS: Surgical changes and devices: None. Lungs and pleura: Mild diffuse interstitial change is potentially representing interstitial pulmonary edema. No focal airspace consolidation identified. No pleural effusions or pneumothorax. Mediastinum: Mediastinal contours are normal. Heart size is normal. Bones and chest wall: No suspicious bony abnormalities. Soft tissues appear unremarkable. IMPRESSION: Question interstitial pulmonary edema. No focal pneumonia identified. Dictated by: Rodney Gaytan M.D. on 11/19/2024 at 11:47 Approved by: Rodney Gaytan M.D. on 11/19/2024 at 11:49
[2024-11-19] MEDS: ACETAMINOPHEN 325 MG TABLET 975 MG PO (11:44)
--- NOTE | 2024-11-19 11:54 | ED.FEVER ---
HPI - Fever <Yamilet Bowden PA-C - Last Filed: 11/19/24 21:23> General Chief Complaint: Fever Stated Complaint: High fever/cough x3 days Time Seen by Provider: 11/19/24 11:44 Mode of arrival: Ambulatory History of Present Illness HPI Narrative: Ms. Tafoya is a pleasant 84-year-old female with a past medical history of hypothyroidism, hyperlipidemia, osteopenia, daily smoker who presents to the emergency department for cough and fever x 5 days. Patient is with her granddaughter who contributes to the history. Multiple family members have had influenza a. Patient's cough started on Saturday and she has also had fever over 102F at home. She received ibuprofen this morning at 9:15 a.m. and she received a dose of Tylenol yesterday. Patient describes cough is very hoarse and dry. Denies nausea, vomiting, chest pain, diarrhea, abdominal pain, sore throat, ear pain. Denies history of known COPD or asthma however COPD is listed in her chart history. Related Data Home Medications Medication Instructions Recorded Confirmed loperamide 1 mg/7.5 mL oral liquid 1 mg PO DAILY PRN diarrhea #0 mL 05/07/18 09/03/24 (Imodium A-D) Probiotic 1 tab PO PRN PRN Diarrhea 03/22/20 06/30/24 cholecalciferol (vitamin D3) 100 200 mcg PO DAILY 03/22/20 09/03/24 mcg (4,000 unit) tablet melatonin 5 mg tablet 5 mg PO BEDTIME PRN insomnia 03/22/20 09/03/24 multivitamin 1 tab PO DAILY 03/22/20 09/03/24 omega-3 fatty acids 1,000 mg 1,000 mg PO DAILY 03/22/20 06/30/24 capsule (Fish Oil Concentrate) Previous Rx's Medication Instructions Recorded cyclobenzaprine 10 mg tablet 10 mg PO DAILY PRN muscle spasm 04/17/23 #30 tabs ezetimibe 10 mg tablet See Rx Instructions .Route 09/03/24 .COMPLEX #90 tabs gabapentin 100 mg capsule 200 mg (2 x 100 mg) PO QID #720 09/03/24 caps levothyroxine 50 mcg tablet See Rx Instructions .Route 09/03/24 .COMPLEX #90 tabs cefdinir 300 mg capsule 300 mg PO Q12H 7 days #14 caps 11/19/24 doxycycline hyclate 100 mg capsule 100 mg PO BID 7 days #14 caps 11/19/24 Allergies Allergy/AdvReac Type Severity Reaction Status Date / Time meloxicam [MELOXICAM] Allergy Severe ANAPHYLAXIS Verified 11/19/24 10:48 atorvastatin [From LIPITOR] Allergy Unknown MUSCLE Verified 11/19/24 10:48 PAIN, ANKLE SWELLING levofloxacin [LEVOFLOXACIN] Allergy Unknown TENDONITIS Verified 11/19/24 10:48 Penicillins Allergy Unknown ANAPHLYAXSI Verified 11/19/24 10:48 S rifampin [RIFAMPIN] Allergy Unknown Verified 11/19/24 10:48 simvastatin [From ZOCOR] Allergy Unknown Verified 11/19/24 10:48 metoprolol [METOPROLOL] AdvReac Unknown HAIR LOSS Verified 11/19/24 10:48 NSAIDS (Non-Steroidal AdvReac Unknown BREAST Verified 11/19/24 10:48 Anti-Inflamma SWELLING [NSAIDS (NON-STEROIDAL ANTI-INFLAMMA] Review of Systems <Yamilet Bowden PA-C - Last Filed: 11/19/24 21:23> Review of Systems ROS Unobtainable: All systems reviewed & are unremarkable except as noted in HPI and below Patient History <Yamilet Bowden PA-C - Last Filed: 11/19/24 21:23> Medical History Trigger finger, right middle finger Chronic diarrhea Chronic neck and back pain Arthritis (Unknown) Tinnitus of both ears (Unknown) History of recurrent ear infection (Unknown) Sjogren's syndrome (1998) Mumps (~1947) Chickenpox (~1947) Chronic pain syndrome (Unknown) COPD (chronic obstructive pulmonary disease) (1998) Fractures (~1979) Osteopenia (2004) Scoliosis (2016) Cataracts, bilateral (2001) Hypothyroidism (Unknown) Surgical History History of open reduction and internal fixation (ORIF) procedure (11/2017) Hx of laminectomy (Unknown) Hx of discectomy (Unknown) History of cataract removal with insertion of prosthetic lens Status post hysterectomy Family History Father Cancer Grandmother DM (diabetes mellitus screen) Mother Cancer Grandfather DM (diabetes mellitus screen) Grandfather Mental health problem Family/Other No problems noted. Social History household members: family Smoking Status: Current every day smoker Tobacco: How many years used: 59 quit status: considering quitting second hand exposure: Yes alcohol intake: current substance use type: does not use Smoking Status: Current every day smoker alcohol intake frequency: holidays/special occasions only Exam <Yamilet Bowden PA-C - Last Filed: 11/19/24 21:23> Narrative Exam Narrative: GENERAL: 84 year old patient appears stated age. Frail elderly patient, in no acute distress. HEAD: Atraumatic. Normocephalic. EYES: No scleral icterus. No injection or drainage. ENT: Nose without bleeding, purulent drainage. Throat with mild posterior erythema, NO tonsillar hypertrophy or exudate. Airway patent. NECK: Trachea midline. Cervical ROM intact. CARDIOVASCULAR: Regular rate and rhythm. RESPIRATORY: ?Nonlabored respirations. ?Speaking in clear, full sentences. Frequent dry cough.? No wheezing. Bilateral posterior lower lobe expiratory rhonchi. EXTREMITIES: No edema or joint tenderness. NEURO: AOx3. ?Clear speech. ?Moves all 4 extremities appropriately. SKIN: No rash or erythema of visible areas Initial Vital Signs Initial Vital Signs: Vital Signs Temperature 100.2 F H 11/19/24 10:48 Pulse Rate 104 H 11/19/24 10:48 Respiratory Rate 18 11/19/24 10:48 Blood Pressure 115/53 L 11/19/24 10:48 Pulse Oximetry 97 11/19/24 10:48 Oxygen Delivery Method Room Air 11/19/24 10:48 <Gloria Amaya DO - Last Filed: 11/24/24 00:19> Initial Vital Signs Initial Vital Signs: Vital Signs Temperature 100.2 F H 11/19/24 10:48 Pulse Rate 104 H 11/19/24 10:48 Respiratory Rate 18 11/19/24 10:48 Blood Pressure 115/53 L 11/19/24 10:48 Pulse Oximetry 97 11/19/24 10:48 Oxygen Delivery Method Room Air 11/19/24 10:48 Course <Yamilet Bowden PA-C - Last Filed: 11/19/24 21:23> Orders Ordered: Discontinued Medications Acetaminophen (Acetaminophen 325 Mg Tablet) 975 mg PO NOW ONE Stop: 11/19/24 11:02 Last Admin: 11/19/24 11:44 Dose: 975 mg Documented By: JOCELYN Azithromycin (Azithromycin 250 Mg Tablet) 500 mg PO NOW ONE Stop: 11/19/24 13:28 Last Admin: 11/19/24 15:19 Dose: 500 mg Documented By: DARRYL Sodium Chloride (Normal Saline 0.9%) 1,632.93 mls @ 544.31 mls/hr 30 ml/kg infuse over 3 hr (1632.93 ml) IV NOW ONE Stop: 11/19/24 16:17 Last Infusion: 11/19/24 15:51 Dose: Infused Documented By: Admin: 11/19/24 13:43 Dose: 544.31 mls/hr Documented By: DARRYL Ceftriaxone Sodium 1,000 mg/ (Sodium Chloride) 100 mls @ 200 mls/hr IV NOW ONE Stop: 11/19/24 13:28 Last Infusion: 11/19/24 15:39 Dose: Infused Documented By: Admin: 11/19/24 15:08 Dose: 200 mls/hr Documented By: DARRYL Vital Signs Vital signs: Vital Signs - 8 hr 11/19/24 14:00 11/19/24 14:50 11/19/24 15:13 Temperature Pulse Rate 88 98 H 115 H Respiratory Rate 12 20 Blood Pressure 98/52 L 122/71 127/73 Pulse Oximetry 94 98 93 Oxygen Delivery Method Room Air Room Air Oxygen Flow Rate 11/19/24 15:14 11/19/24 15:19 11/19/24 15:30 Temperature 98.3 F 98.2 F 98.2 F Pulse Rate 100 H Respiratory Rate Blood Pressure 108/76 Pulse Oximetry 92 Oxygen Delivery Method Nasal Cannula Oxygen Flow Rate 2 11/19/24 16:59 Temperature 98.4 F Pulse Rate 87 Respiratory Rate 22 Blood Pressure 127/71 Pulse Oximetry 88 L Oxygen Delivery Method Room Air Oxygen Flow Rate <Gloria Amaya DO - Last Filed: 11/24/24 00:19> Orders Ordered: Discontinued Medications Acetaminophen (Acetaminophen 325 Mg Tablet) 975 mg PO NOW ONE Stop: 11/19/24 11:02 Last Admin: 11/19/24 11:44 Dose: 975 mg Documented By: JOCELYN Azithromycin (Azithromycin 250 Mg Tablet) 500 mg PO NOW ONE Stop: 11/19/24 13:28 Last Admin: 11/19/24 15:19 Dose: 500 mg Documented By: DARRYL Sodium Chloride (Normal Saline 0.9%) 1,632.93 mls @ 544.31 mls/hr 30 ml/kg infuse over 3 hr (1632.93 ml) IV NOW ONE Stop: 11/19/24 16:17 Last Infusion: 11/19/24 15:51 Dose: Infused Documented By: Admin: 11/19/24 13:43 Dose: 544.31 mls/hr Documented By: DARRYL Ceftriaxone Sodium 1,000 mg/ (Sodium Chloride) 100 mls @ 200 mls/hr IV NOW ONE Stop: 11/19/24 13:28 Last Infusion: 11/19/24 15:39 Dose: Infused Documented By: Admin: 11/19/24 15:08 Dose: 200 mls/hr Documented By: DARRYL Vital Signs Vital signs: Vital Signs - 8 hr 11/19/24 14:00 11/19/24 14:50 11/19/24 15:13 Temperature Pulse Rate 88 98 H 115 H Respiratory Rate 12 20 Blood Pressure 98/52 L 122/71 127/73 Pulse Oximetry 94 98 93 Oxygen Delivery Method Room Air Room Air Oxygen Flow Rate 11/19/24 15:14 11/19/24 15:19 11/19/24 15:30 Temperature 98.3 F 98.2 F 98.2 F Pulse Rate 100 H Respiratory Rate Blood Pressure 108/76 Pulse Oximetry 92 Oxygen Delivery Method Nasal Cannula Oxygen Flow Rate 2 11/19/24 16:59 Temperature 98.4 F Pulse Rate 87 Respiratory Rate 22 Blood Pressure 127/71 Pulse Oximetry 88 L Oxygen Delivery Method Room Air Oxygen Flow Rate MDM - Fever <Yamilet Bowden PA-C - Last Filed: 11/19/24 21:23> Medical Records Attestation: I reviewed the patient's medical records. Lab Data 11/19/24 13:32 11/19/24 13:32 Labs: Lab Results 11/19/24 11/19/24 11/19/24 Range/Units 11:35 13:32 14:48 WBC 11.3 H (4.5-11.0) X10^3/uL RBC 4.05 (4.0-5.2) X10^6/uL Hgb 12.5 (12.0-16.0) g/dL Hct 37.2 (36-46) % MCV 91.8 (80-100) fL MCH 30.8 (26-34) PG MCHC 33.6 (30-36) % RDW 16.0 H (11.6-14.8) % Plt Count 178 (150-400) X10^3/uL Neut % (Auto) 84.7 H (50-75) % Lymph % (Auto) 9.9 L (25-40) % Stephenson % (Auto) 5.2 (3-14) % Eos % (Auto) 0.0 L (2-4) % Baso % (Auto) 0.2 (0-2) % Neut # (Auto) 9600 H (4499-3891) /uL Lymph # (Auto) 1100 (2521-8105) /uL Stephenson # (Auto) 600 (0-900) /uL Eos # (Auto) 0 (0-450) /uL Baso # (Auto) 0 (0-100) /uL PT 13.3 H (9.4-12.5) SECONDS INR 1.2 (0.9-1.3) APTT 32 (25.1-36.5) SECONDS Sodium 132 L (137-145) mmol/L Potassium 3.3 L (3.4-5.1) mmol/L Chloride 99 (98-107) mmol/L Carbon Dioxide 23 (22-32) mmol/L BUN 22 H (7-17) mg/dL Creatinine 1.01 (0.52-1.04) mg/dL Estimated GFR 55 L (>60) mL/min BUN/Creatinine Ratio 21.8 (6-22) Glucose 113 H (80-110) mg/dL Lactate 0.9 (0.7-2.1) mmol/L Calcium 8.4 (8.4-10.2) mg/dL Total Bilirubin 0.7 (0.2-1.3) mg/dL AST 38 H (14-36) IU/L ALT 22 (<35) IU/L Alkaline Phosphatase 80 (38-126) U/L Total Creatine Kinase 329 H (30-135) U/L Troponin I 0.013 (0.01-0.034) ng/mL NT-Pro-B Natriuret Pep 2080 H (<450) pg/mL Total Protein 6.6 (6.3-8.2) g/dL Albumin 3.7 (3.5-5.0) g/dL Globulin 2.9 (1.7-4.1) g/dL Albumin/Globulin Ratio 1.3 (1.0-2.8) Procalcitonin 2.41 H (<0.5) ng/mL Urine Color Yellow Urine Appearance Clear Urine pH 5.5 (4.5-8.0) Ur Specific [place] 1.010 (1.000-1.035) Urine Protein 2+ H (Negative) Urine Glucose (UA) Negative (Negative) g/dL Urine Ketones Negative (NEGATIVE) Urine Occult Blood 2+ H (Negative) Urine Nitrate Negative (Negative) Urine Bilirubin Negative (NEGATIVE) Urine Urobilinogen 0.2 (0.2) E.U./dL Ur Leukocyte Esterase Negative (NEGATIVE) Urine RBC None seen (0-5/HPF) Urine WBC 1-5/hpf (0-5/HPF) Ur Squamous Epith Cells 1-5 /hpf (0-5/HPF) Urine Bacteria Few (2-10) H (None) Ur Culture Indicated? Cult not indicated Vol Urine Centrifuged 10ml (spun) SARS-CoV-2 (PCR) Negative (Negative) Influenza A (RT-PCR) Flu a positive H (NEGATIVE) Influenza B (RT-PCR) Flu b negative (NEGATIVE) RSV (PCR) Negative (Negative) 11/19/24 Range/Units 15:45 WBC (4.5-11.0) X10^3/uL RBC (4.0-5.2) X10^6/uL Hgb (12.0-16.0) g/dL Hct (36-46) % MCV (80-100) fL MCH (26-34) PG MCHC (30-36) % RDW (11.6-14.8) % Plt Count (150-400) X10^3/uL Neut % (Auto) (50-75) % Lymph % (Auto) (25-40) % Stephenson % (Auto) (3-14) % Eos % (Auto) (2-4) % Baso % (Auto) (0-2) % Neut # (Auto) (2112-9600) /uL Lymph # (Auto) (3595-5105) /uL Stephenson # (Auto) (0-900) /uL Eos # (Auto) (0-450) /uL Baso # (Auto) (0-100) /uL PT (9.4-12.5) SECONDS INR (0.9-1.3) APTT (25.1-36.5) SECONDS Sodium (137-145) mmol/L Potassium (3.4-5.1) mmol/L Chloride (98-107) mmol/L Carbon Dioxide (22-32) mmol/L BUN (7-17) mg/dL Creatinine (0.52-1.04) mg/dL Estimated GFR (>60) mL/min BUN/Creatinine Ratio (6-22) Glucose (80-110) mg/dL Lactate (0.7-2.1) mmol/L Calcium (8.4-10.2) mg/dL Total Bilirubin (0.2-1.3) mg/dL AST (14-36) IU/L ALT (<35) IU/L Alkaline Phosphatase (38-126) U/L Total Creatine Kinase (30-135) U/L Troponin I < 0.012 (0.01-0.034) ng/mL NT-Pro-B Natriuret Pep (<450) pg/mL Total Protein (6.3-8.2) g/dL Albumin (3.5-5.0) g/dL Globulin (1.7-4.1) g/dL Albumin/Globulin Ratio (1.0-2.8) Procalcitonin (<0.5) ng/mL Urine Color Urine Appearance Urine pH (4.5-8.0) Ur Specific [place] (1.000-1.035) Urine Protein (Negative) Urine Glucose (UA) (Negative) g/dL Urine Ketones (NEGATIVE) Urine Occult Blood (Negative) Urine Nitrate (Negative) Urine Bilirubin (NEGATIVE) Urine Urobilinogen (0.2) E.U./dL Ur Leukocyte Esterase (NEGATIVE) Urine RBC (0-5/HPF) Urine WBC (0-5/HPF) Ur Squamous Epith Cells (0-5/HPF) Urine Bacteria (None) Ur Culture Indicated? Vol Urine Centrifuged SARS-CoV-2 (PCR) (Negative) Influenza A (RT-PCR) (NEGATIVE) Influenza B (RT-PCR) (NEGATIVE) RSV (PCR) (Negative) Imaging Data Chest x-ray: Radiologist's Impression: PROCEDURE: XR CHEST 2V INDICATIONS: cough fever x 3 days TECHNIQUE: 2 views of the chest were acquired. COMPARISON: [facility], CR, XR CHEST 1V, 06/30/2024, 5:15. FINDINGS: Surgical changes and devices: None. Lungs and pleura: Mild diffuse interstitial change is potentially representing interstitial pulmonary edema. No focal airspace consolidation identified. No pleural effusions or pneumothorax. Mediastinum: Mediastinal contours are normal. Heart size is normal. Bones and chest wall: No suspicious bony abnormalities. Soft tissues appear unremarkable. IMPRESSION: Question interstitial pulmonary edema. No focal pneumonia identified. MDM Narrative Medical decision making narrative: 84-year-old female with a past medical history of COPD, hypothyroidism, hyperlipidemia, osteopenia, daily smoker who presents to the emergency department for cough and fever x 5 days. Differential diagnosis includes but is not limited to pneumonia, bronchitis, viral syndrome, COPD exacerbation, etc. On exam the patient is in no acute distress, nontoxic appearing, temperature elevated at 100.2 in triage with a heart rate of 104, blood pressure 115/53, 97% O2 on room air and 18 respirations per minute. Patient has some expiratory coarse breath sounds and bilateral lower lobe, recent exposure to flu a with history of daily smoking COPD. We will obtain chest x-ray, flu swab, treat with acetaminophen. Flu A positive, symptoms have been going on for 5 days she has no longer candidate for Tamiflu. Chest x-ray reveals question interstitial pulmonary edema, no focal pneumonia identified. Patient's vital signs were repeated after acetaminophen revealing a drop in blood pressure 94/46, pulse 89, respiratory rate 20, temperature 98.1?, O2 100% on room air. Case was discussed with the attending ED physician, given patient's low blood pressure, positive influenza a, questionable chest x-ray concern for possible pneumonia, sepsis, myocarditis, etc.. Patient would like to go home however after further discussion she is reporting her chest feels heavy and she is agreeable to additional ED workup after being encouraged by her daughter. Sepsis order set initiated, we will treat with ceftriaxone and azithromycin for presumed community-acquired pneumonia. Patient does have a history of reported anaphylaxis to penicillins about 40 years ago. Patient's blood pressure improved significantly with IV fluids 120s/70s however her BNP did come back significantly elevated so IV fluids were stopped after she received 789 mL. O2 on room air dipped to 88-89% so she was start on 2l NC. Labs reveal elevated WBC count 11.3 with elevated neutrophils of 84.7%. Her sodium is 132, potassium 3.3, BUN 22 creatinine 1.01. Her CK is elevated at 329, initial troponin 0.013, BNP 2080. Procalcitonin elevated at 2.41. Lactate is normal 0.9. Overall patient warrants admission to the hospital for further evaluation and management of suspected pneumonia causing sepsis, hypoxemic respiratory failure, elevated BNP. Patient is agreeable to admission. Patient changed her mind and decided that she would not like to be admitted. She ripped out her IV and is requesting to leave against medical advice states ?I would prefer to go home and ?. Discussed the risks of leaving extensively with the patient and her daughter, they verbalized understanding of all risks including and are agreeable. I did send prescriptions for antibiotics to cover for pneumonia to the patient's pharmacy, I did encourage her to stay or return to this emergency department or any other emergency department if she were to change her mind. Appropriate paperwork signed. Patient and daughter agreeable, patient will leave against medical advice. <Gloria Amaya, DO - Last Filed: 11/24/24 00:19> Lab Data Labs: Lab Results 11/19/24 11/19/24 11/19/24 Range/Units 11:35 13:32 14:48 WBC 11.3 H (4.5-11.0) X10^3/uL RBC 4.05 (4.0-5.2) X10^6/uL Hgb 12.5 (12.0-16.0) g/dL Hct 37.2 (36-46) % MCV 91.8 (80-100) fL MCH 30.8 (26-34) PG MCHC 33.6 (30-36) % RDW 16.0 H (11.6-14.8) % Plt Count 178 (150-400) X10^3/uL Neut % (Auto) 84.7 H (50-75) % Lymph % (Auto) 9.9 L (25-40) % Stephenson % (Auto) 5.2 (3-14) % Eos % (Auto) 0.0 L (2-4) % Baso % (Auto) 0.2 (0-2) % Neut # (Auto) 9600 H (2872-7433) /uL Lymph # (Auto) 1100 (2173-4151) /uL Stephenson # (Auto) 600 (0-900) /uL Eos # (Auto) 0 (0-450) /uL Baso # (Auto) 0 (0-100) /uL PT 13.3 H (9.4-12.5) SECONDS INR 1.2 (0.9-1.3) APTT 32 (25.1-36.5) SECONDS Sodium 132 L (137-145) mmol/L Potassium 3.3 L (3.4-5.1) mmol/L Chloride 99 (98-107) mmol/L Carbon Dioxide 23 (22-32) mmol/L BUN 22 H (7-17) mg/dL Creatinine 1.01 (0.52-1.04) mg/dL Estimated GFR 55 L (>60) mL/min BUN/Creatinine Ratio 21.8 (6-22) Glucose 113 H (80-110) mg/dL Lactate 0.9 (0.7-2.1) mmol/L Calcium 8.4 (8.4-10.2) mg/dL Total Bilirubin 0.7 (0.2-1.3) mg/dL AST 38 H (14-36) IU/L ALT 22 (<35) IU/L Alkaline Phosphatase 80 (38-126) U/L Total Creatine Kinase 329 H (30-135) U/L Troponin I 0.013 (0.01-0.034) ng/mL NT-Pro-B Natriuret Pep 2080 H (<450) pg/mL Total Protein 6.6 (6.3-8.2) g/dL Albumin 3.7 (3.5-5.0) g/dL Globulin 2.9 (1.7-4.1) g/dL Albumin/Globulin Ratio 1.3 (1.0-2.8) Procalcitonin 2.41 H (<0.5) ng/mL Urine Color Yellow Urine Appearance Clear Urine pH 5.5 (4.5-8.0) Ur Specific [place] 1.010 (1.000-1.035) Urine Protein 2+ H (Negative) Urine Glucose (UA) Negative (Negative) g/dL Urine Ketones Negative (NEGATIVE) Urine Occult Blood 2+ H (Negative) Urine Nitrate Negative (Negative) Urine Bilirubin Negative (NEGATIVE) Urine Urobilinogen 0.2 (0.2) E.U./dL Ur Leukocyte Esterase Negative (NEGATIVE) Urine RBC None seen (0-5/HPF) Urine WBC 1-5/hpf (0-5/HPF) Ur Squamous Epith Cells 1-5 /hpf (0-5/HPF) Urine Bacteria Few (2-10) H (None) Ur Culture Indicated? Cult not indicated Vol Urine Centrifuged 10ml (spun) SARS-CoV-2 (PCR) Negative (Negative) Influenza A (RT-PCR) Flu a positive H (NEGATIVE) Influenza B (RT-PCR) Flu b negative (NEGATIVE) RSV (PCR) Negative (Negative) 11/19/24 Range/Units 15:45 WBC (4.5-11.0) X10^3/uL RBC (4.0-5.2) X10^6/uL Hgb (12.0-16.0) g/dL Hct (36-46) % MCV (80-100) fL MCH (26-34) PG MCHC (30-36) % RDW (11.6-14.8) % Plt Count (150-400) X10^3/uL Neut % (Auto) (50-75) % Lymph % (Auto) (25-40) % Stephenson % (Auto) (3-14) % Eos % (Auto) (2-4) % Baso % (Auto) (0-2) % Neut # (Auto) (7437-6121) /uL Lymph # (Auto) (7541-1406) /uL Stephenson # (Auto) (0-900) /uL Eos # (Auto) (0-450) /uL Baso # (Auto) (0-100) /uL PT (9.4-12.5) SECONDS INR (0.9-1.3) APTT (25.1-36.5) SECONDS Sodium (137-145) mmol/L Potassium (3.4-5.1) mmol/L Chloride (98-107) mmol/L Carbon Dioxide (22-32) mmol/L BUN (7-17) mg/dL Creatinine (0.52-1.04) mg/dL Estimated GFR (>60) mL/min BUN/Creatinine Ratio (6-22) Glucose (80-110) mg/dL Lactate (0.7-2.1) mmol/L Calcium (8.4-10.2) mg/dL Total Bilirubin (0.2-1.3) mg/dL AST (14-36) IU/L ALT (<35) IU/L Alkaline Phosphatase (38-126) U/L Total Creatine Kinase (30-135) U/L Troponin I < 0.012 (0.01-0.034) ng/mL NT-Pro-B Natriuret Pep (<450) pg/mL Total Protein (6.3-8.2) g/dL Albumin (3.5-5.0) g/dL Globulin (1.7-4.1) g/dL Albumin/Globulin Ratio (1.0-2.8) Procalcitonin (<0.5) ng/mL Urine Color Urine Appearance Urine pH (4.5-8.0) Ur Specific [place] (1.000-1.035) Urine Protein (Negative) Urine Glucose (UA) (Negative) g/dL Urine Ketones (NEGATIVE) Urine Occult Blood (Negative) Urine Nitrate (Negative) Urine Bilirubin (NEGATIVE) Urine Urobilinogen (0.2) E.U./dL Ur Leukocyte Esterase (NEGATIVE) Urine RBC (0-5/HPF) Urine WBC (0-5/HPF) Ur Squamous Epith Cells (0-5/HPF) Urine Bacteria (None) Ur Culture Indicated? Vol Urine Centrifuged SARS-CoV-2 (PCR) (Negative) Influenza A (RT-PCR) (NEGATIVE) Influenza B (RT-PCR) (NEGATIVE) RSV (PCR) (Negative) Discharge Plan Departure Patient Disposition: Left Against Medical Advice Clinical Impression: Influenza A, Elevated brain natriuretic peptide (BNP) level Sepsis Qualifiers: Sepsis type: sepsis due to unspecified organism Sepsis acute organ dysfunction status: with acute organ dysfunction Severe sepsis acute organ dysfunction type: acute respiratory failure Acute respiratory failure type: with hypoxia Severe sepsis shock status: without septic shock Qualified Code(s): A41.9 - Sepsis, unspecified organism Instructions: DI for Pneumonia -- Adult Activity Restrictions/Additional Instructions: Dear Ms. Tafoya, Today you were evaluated in the emergency department and recommended to be admitted to the hospital for further evaluation however you decided to leave against medical advice. At this time we are concerned that you have severe infection related to pneumonia and influenza A in addition you have signs of congestive heart failure. While I would like you to stay for oxygen and further management, I have sent antibiotics to your pharmacy to try to help with the infection at home. Because you left against medical advice today does NOT mean that you can not return to this emergency department or another emergency department for further evaluation and we encourage you to do so. Please follow up with your primary care doctor [facility] or return to the ER. (If you do not have a PCP you can call [phone]. ?to schedule an appointment with an [facility] Primary Care Provider) IF YOU DEVELOP ANY NEW OR WORSENING SYMPTOMS, RETURN TO THE ER! Please read the attached instructions, they highlight more specific treatments and interventions for you at home. Thank you for letting me participate in your care, Yamilet Bowden PA-C Prescriptions: New cefdinir 300 mg capsule 300 mg PO Q12H 7 Days Qty: 14 0RF doxycycline hyclate 100 mg capsule 100 mg PO BID 7 Days Qty: 14 0RF No Action loperamide [Imodium A-D] 1 mg/7.5 mL liquid 1 mg PO DAILY PRN (Reason: diarrhea) Qty: 0 cyclobenzaprine 10 mg tablet 10 mg PO DAILY PRN (Reason: muscle spasm) Qty: 30 5RF gabapentin 100 mg capsule 200 mg PO QID Qty: 720 3RF levothyroxine 50 mcg tablet See Rx Instructions .ROUTE .COMPLEX Qty: 90 3RF Dose Instruction: TAKE ONE TABLET BY MOUTH ONE TIME DAILY Rx Instructions: TAKE ONE TABLET BY MOUTH ONE TIME DAILY ezetimibe 10 mg tablet See Rx Instructions .ROUTE .COMPLEX Qty: 90 3RF Dose Instruction: TAKE ONE TABLET BY MOUTH ONE TIME DAILY Rx Instructions: TAKE ONE TABLET BY MOUTH ONE TIME DAILY Probiotic 1 tab PO PRN PRN (Reason: Diarrhea) cholecalciferol (vitamin D3) 100 mcg (4,000 unit) tablet 200 mcg PO DAILY melatonin 5 mg tablet 5 mg PO BEDTIME PRN (Reason: insomnia) omega-3 fatty acids [Fish Oil Concentrate] 1,000 mg capsule 1,000 mg PO DAILY multivitamin Tablet 1 tab PO DAILY Referrals: Kenton Salas DO [Primary Care Provider] - Stand Alone Forms: Patient Portal/API, Against Medical Advice ED Sign-out <Gloria Amaya DO - Last Filed: 11/24/24 00:19> Cosign ED Attending Cosignature Attestation: I was available for consultation. I was not aware patient was leaving against medical advice.
[2024-11-19 12:40] LABS: COVID-19 CEPHEID 4-PLEX PCR Negative (Negative); Influenza A - CEPHEID Flu A POSITIVE (NEGATIVE); Influenza B - CEPHEID Flu B NEGATIVE (NEGATIVE); Respiratory Syncytial Virus Negative (Negative)
[2024-11-19] MEDS: SODIUM CHLORIDE 0.9% 1,632.93 ML 544.31 ML IV (13:43)
--- NOTE | 2024-11-19 13:43 | EKG_ITS ---
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
[2024-11-19 14:00] LABS: Add Manual Diff / Slide Review NO; Basophils Absolute Auto 0 /uL (0-100); Basophils Percent Auto 0.2 % (0-2); Eosinophils Absolute Auto 0 /uL (0-450); Hematocrit 37.2 % (36-46); Hemoglobin 12.5 g/dL (12.0-16.0); Lymphocytes Absolute Auto 1100 /uL (1100-4500); Lymphocytes Percent Auto 9.9 % (25-40); Mean Corpuscular HGB Conc 33.6 % (30-36); Mean Corpuscular Hemoglobin 30.8 PG (26-34); Mean Corpuscular Volume 91.8 fL (80-100); Monocytes Absolute Auto 600 /uL (0-900); Monocytes Percent Auto 5.2 % (3-14); Neutrophils Absolute Auto 9600 /uL (1500-7000); Neutrophils Percent Auto 84.7 % (50-75); Platelet Count 178 X10^3/uL (150-400); Red Blood Cell Count 4.05 X10^6/uL (4.0-5.2); White Blood Cell Count 11.3 X10^3/uL (4.5-11.0)
[2024-11-19 14:08] LABS: INR 1.2 (0.9-1.3); Prothrombin Time 13.3 SECONDS (9.4-12.5)
[2024-11-19 14:16] LABS: Alanine Aminotransferase 22 IU/L (<35); Albumin 3.7 g/dL (3.5-5.0); Albumin Globulin Ratio 1.3 (1.0-2.8); Alkaline Phosphatase 80 U/L (38-126); Aspartate Aminotransferase 38 IU/L (14-36); BUN Creatinine Ratio 21.8 (6-22); Bilirubin Total 0.7 mg/dL (0.2-1.3); Blood Urea Nitrogen 22 mg/dL (7-17); Calcium 8.4 mg/dL (8.4-10.2); Carbon Dioxide 23 mmol/L (22-32); Chloride 99 mmol/L (98-107); Creatine Kinase 329 U/L (30-135); Estimated Glomerular Filt Rate 55 mL/min (>60); Globulin 2.9 g/dL (1.7-4.1); Glucose 113 mg/dL (80-110); HEMOLYSIS < 15 (0-50); Lactate (Lactic Acid) 0.9 mmol/L (0.7-2.1); PTT Partial Thromboplastin Tim 32 SECONDS (25.1-36.5); Potassium 3.3 mmol/L (3.4-5.1); Sodium 132 mmol/L (137-145); Total Protein 6.6 g/dL (6.3-8.2)
[2024-11-19 14:28] LABS: NT-proBNP (BNP-Adult 18+) 2080 pg/mL (<450); Troponin I 0.013 ng/mL (0.01-0.034)
[2024-11-19 14:33] LABS: Procalcitonin 2.41 ng/mL (<0.5)
[2024-11-19] MEDS: cefTRIAXone 1,000 MG in SODIUM CHLORIDE 0.9% 100 ML 200 MG IV (15:08)
[2024-11-19 15:13] LABS: Appearance Urine UA CLEAR; Bilirubin Urine UA NEGATIVE (NEGATIVE); Color Urine UA YELLOW; Glucose Urine UA NEGATIVE (Negative); Ketones Urine UA NEGATIVE (NEGATIVE); Leukocyte Esterase Urine UA NEGATIVE (NEGATIVE); Nitrite Urine UA NEGATIVE (Negative); Occult Blood Urine UA 2+ (Negative); Protein Urine UA 2+ (Negative); Urobilinogen Urine UA 0.2 E.U./dL (0.2)
[2024-11-19 15:16] LABS: pH Urine UA 5.5 (4.5-8.0)
[2024-11-19] MEDS: AZITHROMYCIN 250 MG TABLET 500 MG PO (15:19)
[2024-11-19 15:33] LABS: Bacteria Urine Few (2-10); Culture Indicated Urine Cult Not Indicated; RBC Urine None Seen (0-5/HPF); Squamous Epithelial Cell Urine 1-5 /HPF (0-5/HPF); Urine Volume 10mL (spun); WBC Urine 1-5/HPF (0-5/HPF)
[2024-11-19 16:19] LABS: Troponin I < 0.012 ng/mL (0.01-0.034)
== END 2024-11-19 17:00 | disposition left against medical advice (07) ==
PROVIDERS: Emergency Provider Physician Assistant; PCP Family Medicine
DX: J10.1 Influenza due to other identified influenza virus with other respiratory manifestations (principal); A41.9 Sepsis, unspecified organism; R05.9 Cough, unspecified; J44.9 Chronic obstructive pulmonary disease, unspecified; E03.9 Hypothyroidism, unspecified; R79.89 Other specified abnormal findings of blood chemistry
CPT/HCPCS: 0241U; 36415; 71046; 80053; 81001; 82550; 83605; 83880; 84145; 84484; 85025; 85610; 85730; 87040; 93005; 96361; 96365; 99285; J0696

== ENCOUNTER 2024-11-28 09:20 | Emergency (ER) | payer MEDICARE, SELFPAY ==
[2024-06-30 12:47] VITALS: BMI 19.7
[2024-11-28] VITALS (7 sets, daily range): BP systolic 168–188; BP diastolic 74–81; PULSE 65–91; RESP 16–48; TEMP 36.7–36.9; O2SAT 96–100
--- NOTE | 2024-11-28 09:31 | DI.RAD.S_ITS ---
PROCEDURE: XR CHEST 1V INDICATIONS: Shortness of breath TECHNIQUE: One view of the chest was acquired. COMPARISON: [facility], CR, XR CHEST 2V, 11/19/2024, 11:16. FINDINGS: Surgical changes and devices: None. Lungs and pleura: Lungs are clear. No pleural effusions or pneumothorax. Mediastinum: Mediastinal contours appear normal. Heart size is normal. Bones and chest wall: No suspicious bony lesions. Overlying soft tissues appear unremarkable. IMPRESSION: No acute cardiopulmonary abnormality is seen. Dictated by: Surinder Warner M.D. on 11/28/2024 at 9:03 Approved by: Surinder Warner M.D. on 11/28/2024 at 9:03
--- NOTE | 2024-11-28 09:46 | EKG_ITS ---
[address] [address] Test Date: 2024-11-28 Pat Name: Shanda Tafoya Department: [facility] Room: Gender: Female Body Welder: KATHRYN : 1940 Requested By: Order Number: [id number] Reading MD: Paulie Philip Measurements Intervals [place] Rate: 71 P: 80 IA: 162 QRS: 22 QRSD: 86 T: 31 QT: 428 QTc: 465 Interpretive Statements Normal sinus rhythm Cannot rule out Anterior infarct , age undetermined Electronically Signed On 11-28-2024 13:56:02 PST by Paulie Philip
[2024-11-28 10:19] LABS: INR 1.1 (0.9-1.3); Prothrombin Time 12.2 SECONDS (9.4-12.5)
[2024-11-28 10:24] LABS: Alanine Aminotransferase 20 IU/L (<35); Albumin Globulin Ratio 1.3 (1.0-2.8); Alkaline Phosphatase 81 U/L (38-126); Aspartate Aminotransferase 27 IU/L (14-36); BUN Creatinine Ratio 20.8 (6-22); Bilirubin Total 0.6 mg/dL (0.2-1.3); Blood Urea Nitrogen 15 mg/dL (7-17); Calcium 9.3 mg/dL (8.4-10.2); Carbon Dioxide 30 mmol/L (22-32); Chloride 106 mmol/L (98-107); Estimated Glomerular Filt Rate > 60 mL/min (>60); Globulin 3.1 g/dL (1.7-4.1); Glucose 83 mg/dL (80-110); HEMOLYSIS < 15 (0-50); Potassium 3.5 mmol/L (3.4-5.1); Sodium 141 mmol/L (137-145); Total Protein 7.1 g/dL (6.3-8.2)
[2024-11-28 10:25] LABS: Lactate (Lactic Acid) 1.1 mmol/L (0.7-2.1)
[2024-11-28 10:26] LABS: Add Manual Diff / Slide Review NO; Basophils Absolute Auto 100 /uL (0-100); Basophils Percent Auto 0.6 % (0-2); Eosinophils Absolute Auto 100 /uL (0-450); Hematocrit 37.7 % (36-46); Hemoglobin 12.8 g/dL (12.0-16.0); Lymphocytes Absolute Auto 2500 /uL (1100-4500); Lymphocytes Percent Auto 23.3 % (25-40); Mean Corpuscular Hemoglobin 31.1 PG (26-34); Mean Corpuscular Volume 91.5 fL (80-100); Monocytes Absolute Auto 700 /uL (0-900); Monocytes Percent Auto 6.2 % (3-14); Neutrophils Absolute Auto 7300 /uL (1500-7000); Neutrophils Percent Auto 68.9 % (50-75); Platelet Count 373 X10^3/uL (150-400); Red Blood Cell Count 4.12 X10^6/uL (4.0-5.2); Red Cell Distribution Width 16.1 % (11.6-14.8); White Blood Cell Count 10.6 X10^3/uL (4.5-11.0)
[2024-11-28 10:36] LABS: NT-proBNP (BNP-Adult 18+) 2490 pg/mL (<450); Troponin I < 0.012 ng/mL (0.01-0.034)
--- NOTE | 2024-11-28 11:11 | ED.EXTPRO ---
HPI - Extremity Problem General Chief complaint: Extremity Problem,Nontraumatic Stated complaint: Swollen feet and legs Time Seen by Provider: 11/28/24 10:32 Source: patient, RN notes reviewed and old records reviewed Mode of arrival: Ambulatory Limitations: no limitations History of Present Illness HPI Narrative: 84-year-old female history of hypothyroidism, dyslipidemia, osteopenia daily smoker who presents with complaint of increased swelling bilateral lower extremities. Recent diagnosis of influenza a on 11/19/2024 and was found to have little bit of hypoxia at 88 and 89% elevated BNP at that time procalcitonin was also elevated that time. Patient ultimately left Against Medical Advice with a prescription for cefdinir and doxycycline. Patient states she was feeling much better firm influenza. No fevers, her cough has not improved although she coughed up a little bit of blood in the last day or 2. She said she was feeling pretty wheezy but her breathing has also improved over time. Denies any nausea or vomiting. He was having some diarrhea but that is resolved. Has chronic urinary frequency but denies any new changes. She was noted today she has had increased swelling in her bilateral lower extremities particularly her feet. States she has not really had that problem in the past. Patient states home medications include gabapentin and a thyroid medication, she denies any medication for hypertension or dyslipidemia but appears to have Zetia on her list. Patient states she was never taken a water pill or diuretic. Has multiple allergies reported but states only 1 allergy she was aware of. She does continue to use tobacco regularly but states tapering down. Denies any daily alcohol, no recreational drugs. Dr. Salas is her primary care physician. Related Data Home Medications Medication Instructions Recorded Confirmed loperamide 1 mg/7.5 mL oral liquid 1 mg PO DAILY PRN diarrhea #0 mL 05/07/18 09/03/24 (Imodium A-D) Probiotic 1 tab PO PRN PRN Diarrhea 03/22/20 06/30/24 cholecalciferol (vitamin D3) 100 200 mcg PO DAILY 03/22/20 09/03/24 mcg (4,000 unit) tablet melatonin 5 mg tablet 5 mg PO BEDTIME PRN insomnia 03/22/20 09/03/24 multivitamin 1 tab PO DAILY 03/22/20 09/03/24 omega-3 fatty acids 1,000 mg 1,000 mg PO DAILY 03/22/20 06/30/24 capsule (Fish Oil Concentrate) Previous Rx's Medication Instructions Recorded cyclobenzaprine 10 mg tablet 10 mg PO DAILY PRN muscle spasm 04/17/23 #30 tabs ezetimibe 10 mg tablet See Rx Instructions .Route 09/03/24 .COMPLEX #90 tabs gabapentin 100 mg capsule 200 mg (2 x 100 mg) PO QID #720 09/03/24 caps levothyroxine 50 mcg tablet See Rx Instructions .Route 09/03/24 .COMPLEX #90 tabs furosemide 40 mg tablet (Lasix) 40 mg PO DAILY #7 tabs 11/28/24 Allergies Allergy/AdvReac Type Severity Reaction Status Date / Time meloxicam [MELOXICAM] Allergy Severe ANAPHYLAXIS Verified 11/19/24 10:48 atorvastatin [From LIPITOR] Allergy Unknown MUSCLE Verified 11/19/24 10:48 PAIN, ANKLE SWELLING levofloxacin [LEVOFLOXACIN] Allergy Unknown TENDONITIS Verified 11/19/24 10:48 Penicillins Allergy Unknown ANAPHLYAXSI Verified 11/19/24 10:48 S rifampin [RIFAMPIN] Allergy Unknown Verified 11/19/24 10:48 simvastatin [From ZOCOR] Allergy Unknown Verified 11/19/24 10:48 metoprolol [METOPROLOL] AdvReac Unknown HAIR LOSS Verified 11/19/24 10:48 NSAIDS (Non-Steroidal AdvReac Unknown BREAST Verified 11/19/24 10:48 Anti-Inflamma SWELLING [NSAIDS (NON-STEROIDAL ANTI-INFLAMMA] Review of Systems Review of Systems ROS Unobtainable: All systems reviewed & are unremarkable except as noted in HPI and below Patient History Medical History Trigger finger, right middle finger Chronic diarrhea Chronic neck and back pain Arthritis (Unknown) Tinnitus of both ears (Unknown) History of recurrent ear infection (Unknown) Sjogren's syndrome (1998) Mumps (~1947) Chickenpox (~1947) Chronic pain syndrome (Unknown) COPD (chronic obstructive pulmonary disease) (1998) Fractures (~1979) Osteopenia (2004) Scoliosis (2015) Cataracts, bilateral (2001) Hypothyroidism (Unknown) Surgical History History of open reduction and internal fixation (ORIF) procedure (11/2017) Hx of laminectomy (Unknown) Hx of discectomy (Unknown) History of cataract removal with insertion of prosthetic lens Status post hysterectomy Family History Father Cancer Grandmother DM (diabetes mellitus screen) Mother Cancer Grandfather DM (diabetes mellitus screen) Grandfather Mental health problem Family/Other No problems noted. Social History household members: family Smoking Status: Current every day smoker Tobacco: How many years used: 59 quit status: considering quitting second hand exposure: Yes alcohol intake: current substance use type: does not use Smoking Status: Current every day smoker alcohol intake frequency: holidays/special occasions only Exam Narrative Exam Narrative: GENERAL: Alert and oriented x three, thin, well-appearing female in mild distress HEENT: Head normocephalic, atraumatic, EOMI, pupils reactive, face symmetric, moist mucous membranes NECK: Supple, full range of motion CARDIOVASCULAR: Regular rate and rhythm without murmurs, rubs or gallops. RESPIRATORY: Breath sounds equal bilaterally, no wheezes rales or rhonchi. ABDOMEN: Soft, nontender. Normoactive bowel sounds all 4 quadrants. No guarding or rebound, rigidity, no mass : No CVA tenderness EXTREMITIES: Normal range of motion, no clubbing, patient has bilateral pedal edema slightly up into the calves, no warmth or erythema appreciated, she was nontender to touch, normal sensation. Neurovascularly intact NEUROLOGICAL: Cranial nerves II through XII grossly intact. Moving all extremities SKIN: Warm, dry, no petechiae, no rashes or lesions. Initial Vital Signs Initial Vital Signs: Vital Signs Temperature 98.1 F 11/28/24 09:39 Pulse Rate 74 11/28/24 09:39 Respiratory Rate 16 11/28/24 09:39 Blood Pressure 178/81 H 11/28/24 09:39 Pulse Oximetry 100 11/28/24 09:39 Oxygen Delivery Method Room Air 11/28/24 09:39 Course Orders Ordered: ED Orders 11/28/24 10:00 Complete Blood Count AUTO DIFF Stat Comprehensive Metabolic Panel Stat Lactate (Lactic Acid) Stat NT-proBNP (BNP-Adult 18+) Stat Prothrombin Time INR Stat Troponin I Stat 11/28/24 11:32 US periph venous low extrem bi Stat Discontinued Medications Furosemide (Furosemide 40 Mg/4 Ml Vial) 40 mg IV NOW ONE Stop: 11/28/24 11:33 Last Admin: 11/28/24 11:51 Dose: 40 mg Documented By: Vital Signs Vital signs: Vital Signs - 8 hr 11/28/24 11:10 11/28/24 11:30 11/28/24 11:30 Temperature Pulse Rate 72 74 Respiratory Rate 26 H 23 Blood Pressure 168/74 H Pulse Oximetry 100 100 Oxygen Delivery Method 11/28/24 12:00 11/28/24 12:30 11/28/24 12:31 Temperature Pulse Rate 91 H 74 75 Respiratory Rate 48 H 24 27 H Blood Pressure Pulse Oximetry 100 100 96 Oxygen Delivery Method Room Air 11/28/24 12:31 11/28/24 13:04 Temperature 98.4 F Pulse Rate 65 Respiratory Rate 18 Blood Pressure 188/76 H 188/78 H Pulse Oximetry 98 Oxygen Delivery Method Room Air MDM - Extremity (Nontraumatic) Lab Data 11/28/24 10:00 11/28/24 10:00 Labs: Lab Results 11/28/24 Range/Units 10:00 WBC 10.6 (4.5-11.0) X10^3/uL RBC 4.12 (4.0-5.2) X10^6/uL Hgb 12.8 (12.0-16.0) g/dL Hct 37.7 (36-46) % MCV 91.5 (80-100) fL MCH 31.1 (26-34) PG MCHC 34.0 (30-36) % RDW 16.1 H (11.6-14.8) % Plt Count 373 (150-400) X10^3/uL Neut % (Auto) 68.9 (50-75) % Lymph % (Auto) 23.3 L (25-40) % [place] % (Auto) 6.2 (3-14) % Eos % (Auto) 1.0 L (2-4) % Baso % (Auto) 0.6 (0-2) % Neut # (Auto) 7300 H (1519-3216) /uL Lymph # (Auto) 2500 (2399-7545) /uL [place] # (Auto) 700 (0-900) /uL Eos # (Auto) 100 (0-450) /uL Baso # (Auto) 100 (0-100) /uL PT 12.2 (9.4-12.5) SECONDS INR 1.1 (0.9-1.3) Sodium 141 (137-145) mmol/L Potassium 3.5 (3.4-5.1) mmol/L Chloride 106 (98-107) mmol/L Carbon Dioxide 30 (22-32) mmol/L BUN 15 (7-17) mg/dL Creatinine 0.72 (0.52-1.04) mg/dL Estimated GFR > 60 (>60) mL/min BUN/Creatinine Ratio 20.8 (6-22) Glucose 83 (80-110) mg/dL Lactate 1.1 (0.7-2.1) mmol/L Calcium 9.3 (8.4-10.2) mg/dL Total Bilirubin 0.6 (0.2-1.3) mg/dL AST 27 (14-36) IU/L ALT 20 (<35) IU/L Alkaline Phosphatase 81 (38-126) U/L Troponin I < 0.012 (0.01-0.034) ng/mL NT-Pro-B Natriuret Pep 2490 H (<450) pg/mL Total Protein 7.1 (6.3-8.2) g/dL Albumin 4.0 (3.5-5.0) g/dL Globulin 3.1 (1.7-4.1) g/dL Albumin/Globulin Ratio 1.3 (1.0-2.8) ECG Data Attestation EKG: I personally reviewed and interpreted this ECG as follows: Prior ECG tracings: available for review Interpretation: Sinus rhythm rate of 71 IA 162 QRS 86 QTC of 465, no acute ST elevation likely some motion artifact lateral leads V5 and 6. Patient has prior from 11/19/2024 appears similar except for lateral leads new 5 6. MDM Narrative Medical decision making narrative: 84-year-old female presents with complaint of increased swelling bilateral feet was recently diagnosed with the end of October with influenza A (11/19/2024) she states she was significantly improved from that she did receive some fluids and had an elevated BNP with that visit. Has been a little bit hypoxic but had left against medical advice. She states she was continuing to improve except for the swelling in her feet which is new and she was not had in the past. EKG Sinus rhythm Chest x-ray shows no acute cardiopulmonary abnormality. Labs show white count of 10.6 hemoglobin of 12 platelets of 373. INR is 1.1 electrolytes are appropriate potassium 3.5 lactate 1.1 LFTs are negative, troponins less than 0.012 with a BNP of 2490. Patient has prior from 11/19/2024 which shows BNP of 2080. Discussed with the patient has a little bit of hemoptysis that may have been leftover from her influenza but we will obtain DVT ultrasound. Ultrasound shows no DVT thrombosis in either extremity. Patient was given Lasix 40 mg. Plan to discharge home on short course of Lasix with plan for follow up for primary care. Patient's appear to have about a L out from her Lasix. She was not having any worsening continues to feel well reviewed her findings from today she needs to follow up with primary care to make sure that she does not need this medication regularly and have some additional workup. Patient expressed her understanding. Discharge Plan Departure Patient Disposition: Home Clinical Impression: Bilateral edema of lower extremity, CHF (congestive heart failure) Instructions: DI for Heart Failure Activity Restrictions/Additional Instructions: Follow up with your physician for recheck, your workup today shows that you have some fluid overload or congestive heart failure. Please call to set up an appointment. Recommend taking a diuretic or water pill 1 tablet daily, follow up with your physician as you may require this is a more regular medication. Prescription was sent to [facility] in [place]. Please return for fevers, new chest pain or shortness of breath, increasing swelling of your extremities, lightheadedness or passing out, black or bloody stools, or other new or concerning changes. Prescriptions: New furosemide [Lasix] 40 mg tablet 40 mg PO DAILY Qty: 7 0RF No Action loperamide [Imodium A-D] 1 mg/7.5 mL liquid 1 mg PO DAILY PRN (Reason: diarrhea) Qty: 0 cyclobenzaprine 10 mg tablet 10 mg PO DAILY PRN (Reason: muscle spasm) Qty: 30 5RF gabapentin 100 mg capsule 200 mg PO QID Qty: 720 3RF levothyroxine 50 mcg tablet See Rx Instructions .ROUTE .COMPLEX Qty: 90 3RF Dose Instruction: TAKE ONE TABLET BY MOUTH ONE TIME DAILY Rx Instructions: TAKE ONE TABLET BY MOUTH ONE TIME DAILY ezetimibe 10 mg tablet See Rx Instructions .ROUTE .COMPLEX Qty: 90 3RF Dose Instruction: TAKE ONE TABLET BY MOUTH ONE TIME DAILY Rx Instructions: TAKE ONE TABLET BY MOUTH ONE TIME DAILY Probiotic 1 tab PO PRN PRN (Reason: Diarrhea) cholecalciferol (vitamin D3) 100 mcg (4,000 unit) tablet 200 mcg PO DAILY melatonin 5 mg tablet 5 mg PO BEDTIME PRN (Reason: insomnia) omega-3 fatty acids [Fish Oil Concentrate] 1,000 mg capsule 1,000 mg PO DAILY multivitamin Tablet 1 tab PO DAILY Referrals: Kenton Salas DO [Primary Care Provider] - Stand Alone Forms: Patient Portal/API/Survey
--- NOTE | 2024-11-28 11:32 | DI.US.S_ITS ---
PROCEDURE: US PERIPH VENOUS LOW EXTREM BI INDICATIONS: b/l le swelling TECHNIQUE: Real-time imaging, as well as color and pulse Doppler interrogation, were performed of the deep veins of both legs from the inguinal ligament to the popliteal fossa, with documentation of the visualized calf veins. COMPARISON: None. FINDINGS: Right: The common femoral, femoral, popliteal, and the visualized calf veins are normally compressible, and free of intraluminal thrombus. Color and pulse Doppler demonstrate normal phasic intravascular flow. There is normal augmentation response to distal compression maneuver. Left: The common femoral, femoral, popliteal, and the visualized calf veins are normally compressible, and free of intraluminal thrombus. Color and pulse Doppler demonstrate normal phasic intravascular flow. There is normal augmentation response to distal compression maneuver. IMPRESSION: No findings of deep venous thrombosis in either lower extremity. Dictated by: Surinder Warner M.D. on 11/28/2024 at 11:09 Approved by: Surinder Warner M.D. on 11/28/2024 at 11:10
[2024-11-28] MEDS: FUROSEMIDE 40 MG/4 ML VIAL IV (11:51)
== END 2024-11-28 13:25 | disposition home or self-care (01) ==
PROVIDERS: Emergency Provider Emergency Medicine; PCP Family Medicine
DX: R60.0 Localized edema (principal); I50.9 Heart failure, unspecified; E03.9 Hypothyroidism, unspecified; E78.5 Hyperlipidemia, unspecified; M85.80 Other specified disorders of bone density and structure, unspecified site; F17.210 Nicotine dependence, cigarettes, uncomplicated
CPT/HCPCS: 36415; 71045; 80053; 83605; 83880; 84484; 85025; 85610; 93005; 93970; 96374; 99284; J1940

== ENCOUNTER → 2024-12-25 11:44 | Outpatient (CLI) | payer MEDICARE, SELFPAY ==
[2024-06-30 12:47] VITALS: BMI 19.7
--- NOTE | 2024-12-25 11:47 | DI.RAD.S_ITS ---
PROCEDURE: XR DEXA AXIAL SKELETON INDICATIONS: screen osteoporosis COMPARISON: [facility], CR, XR DEXA AXIAL SKELETON, 10/24/2018, 10:17. FINDINGS: Lumbar Spine: Bone mineral density 0.979 (previously 1.148) g/cm2, T score -0.6 (previously-0.3). Right Femoral Neck: Bone mineral density 0.681 (previously 0.786) g/cm2, T score -1.5 (previously-1.8) Right Hip: Bone mineral density 0.677 (previously 0.824) g/cm2, T score -2.2 (previously-1.5). Fracture Risk Calculation (when applicable): 10-year fracture risk of a major osteoporotic fracture 18 percent and of a hip fracture 6.8 percent. (T score greater or equal to -1.0 to: NORMAL) (T score from -1.1 to -2.4: OSTEOPENIA) (T score less than or equal to -2.5: OSTEOPOROSIS) IMPRESSION: Osteopenia---recommend repeat DEXA in 2-3 years for reassessment. Follow-up guidelines as follows: Osteoporosis: Consider a repeat DEXA and Vertebral Fracture Assessment (VFA) exam in 2 years or sooner if medically necessary, to reassess this patient's status. Osteopenia: Consider a repeat DEXA in 2-3 years to reassess this patient's status, or if there is a new clinical indication. Normal: Consider a repeat DEXA in 5 years or sooner, or if there is a new clinical indication. All treatment decisions require clinical judgment and consideration of individual patient factors, including patient preferences, comorbidities, previous drug use, risk factors not captured in the FRAX model (e.g., frailty, falls, vitamin D deficiency, increased bone turnover, interval significant decline in bone density ) and possible under- or over-estimation of fracture risk by FRAX. In addition, the NOF Guide recommends that FDA-approved medical therapies be considered in postmenopausal women and men age >= 50 years with a: * Hip or vertebral (clinical or morphometric) fracture * T-score of <=-2.5 at the spine or hip * Ten-year fracture probability by FRAX of >= 3% for hip fracture or >=20% for major osteoporotic fracture. Dictated by: Maximilian Palmer M.D. on 12/26/2024 at 6:36 Approved by: Maximilian Palmer M.D. on 12/26/2024 at 6:39
== END ==
PROVIDERS: PCP Family Medicine; Referring Provider Family Medicine; Visit Provider Family Medicine
DX: M85.89 Other specified disorders of bone density and structure, multiple sites (principal)
CPT/HCPCS: 77080

== ENCOUNTER → 2024-12-28 07:58 | Outpatient (CLI) | payer MEDICARE, SELFPAY ==
[2024-06-30 12:47] VITALS: BMI 19.7
--- NOTE | 2024-12-28 08:00 | DI.ECHO.S_ITS ---
[facility]---------+ [facility] : : [address] : : [place] : : [address] : : Phone: [phone] Echocardiogram Report + + :Name: PAT PAYNE Study Date: 12/28/2024 Height: 63 in : :[facility] ReadingLocation: Weight: 104 lb : : Gender: Female BSA: 1.5 m2 : :: 1940 Age: 84 yrs BP: 144/75 mmHg: :Reason For Study: EVALUATE FOR CHF : :Ordering Physician: DESIREE, : :NANCY Performed By: Noemy Stewart : :Referring: NANCY RAMÍREZ : + + Interpretation Summary Normal left ventricle size with ejection fraction 60-65%. Diastolic parameters suggest a relaxation abnormality of the left ventricle, consistent with probable normal filling pressures. Mild mitral regurgitation. Mild tricuspid regurgitation. Procedure: A two-dimensional transthoracic echocardiogram with color flow and Doppler was performed. The study quality was technically adequate. There is no prior echocardiogram noted for this patient. The patient was in sinus rhythm with heart rates between 68-82 bpm during the exam. Left Ventricle: The left ventricle is normal in size and wall thickness. The ejection fraction is estimated to be 60-65%. There are no focal wall motion abnormalities. Diastolic parameters suggest a relaxation abnormality of the left ventricle, consistent with probable normal filling pressures. Right Ventricle: The right ventricle is normal in size and function. Atria: The left atrial size is normal. Right atrial size is normal. There is no Doppler evidence for an interatrial shunt. Mitral Valve: The mitral valve leaflets appear mildly thickened, but open well. The mitral valve chordae are thickened and/or calcified. There is mild mitral regurgitation. Aortic Valve: The aortic valve is not well visualized. The aortic valve is trileaflet. There is no aortic valve stenosis. No aortic regurgitation is present. Tricuspid Valve: The tricuspid valve leaflets are thin and pliable. There is mild tricuspid regurgitation. The right ventricular systolic pressure is estimated to be at least 21 mmHg based on an estimated right atrial pressure of 3 mm Hg. Pulmonic Valve: The pulmonic valve leaflets are thin and pliable; valve motion is normal. There is no pulmonic valvular regurgitation. Great Vessels: The aortic root is normal size. The ascending aorta could not be visualized. The IVC is of normal diameter and collapses greater than 50% with a sniff. This suggests a low right atrial pressure of 3 mm Hg. Pericardium/ Pleura There is no pericardial effusion. There is no pleural effusion. MMode/2D Measurements & Calculations LVIDd: 4.5 cm LVOT diam: 2.0 cm LVIDs: 2.8 cm Ao root diam: 3.2 cm FS: 36.8 % Ao Arch Diam (Prox Trans): 2.5 cm IVSd: 0.68 cm LVPWd: 0.68 cm LV crowell. diameter/BSA (cm/m^2): 3.0 LV sys. diameter/BSA (cm/m^2): 1.9 LA A2 area: 14.5 cm2 RA long axis: 4.3 cm LA A4 area: 13.6 cm2 RA area: 12.6 cm2 LA length (vol): 4.6 cm RA vol: 31.1 ml LA vol: 36.5 ml RA : 21.3 ml/m2 LA vol index: 24.9 ml/m2 IVC diam: 1.4 cm RVD1 (basal): 3.0 cm RVD2 (mid): 2.4 cm TAPSE: 1.7 cm Doppler Measurements & Calculations Ao V2 max: 107.0 cm/sec LVOT Max Ramón: 93.6 cm/sec Ao V2 mean: 72.5 cm/sec LV V1 max P.5 mmHg Ao max P.6 mmHg LV V1 VTI: 19.6 cm Ao mean P.3 mmHg KATI(I,D): 2.5 cm2 Ao V2 VTI: 25.2 cm KATI(V,D): 2.8 cm2 sev ratio: 0.78 KATI indexed to BSA (cm^2/m^2): 1.7 MV E max ramón: 78.6 cm/sec TR max ramón: 213.7 cm/sec MV A max ramón: 90.5 cm/sec TR max P.4 mmHg MV E/A: 0.87 PA V2 max: 78.2 cm/sec Med Peak E' Ramón: 6.6 cm/sec PA V2 mean: 56.6 cm/sec E/E' med: 12.0 PA mean P.4 mmHg Lat Peak E' Ramón: 7.2 cm/sec PA pr(Accel): 39.2 mmHg E/E' lat: 11.0 E/e' average: 11.5 MV dec time: 0.30 sec SV(LVOT): 63.2 ml Electronically signed by: Lis Alaniz on Reading Physician:12/28/2024 10:41 AM
== END ==
PROVIDERS: PCP Family Medicine; Referring Provider Nurse Practitioner Family; Visit Provider Nurse Practitioner Family
DX: I08.1 Rheumatic disorders of both mitral and tricuspid valves (principal); R79.89 Other specified abnormal findings of blood chemistry; R60.0 Localized edema; I50.9 Heart failure, unspecified
CPT/HCPCS: 93306

== ENCOUNTER → 2025-01-05 09:11 | Outpatient (CLI) | payer MEDICARE, SELFPAY ==
[2024-06-30 12:47] VITALS: BMI 19.7
[2025-01-05 09:49] LABS: Add Manual Diff / Slide Review NO; Basophils Absolute Auto 100 /uL (0-100); Basophils Percent Auto 0.7 % (0-2); Eosinophils Absolute Auto 0 /uL (0-450); Eosinophils Percent Auto 0.6 % (2-4); Hematocrit 43.6 % (36-46); Hemoglobin 14.8 g/dL (12.0-16.0); Lymphocytes Absolute Auto 1700 /uL (1100-4500); Lymphocytes Percent Auto 21.2 % (25-40); Monocytes Absolute Auto 500 /uL (0-900); Monocytes Percent Auto 6.2 % (3-14); Neutrophils Absolute Auto 5500 /uL (1500-7000); Neutrophils Percent Auto 71.3 % (50-75); Platelet Count 178 X10^3/uL (150-400); Red Blood Cell Count 4.64 X10^6/uL (4.0-5.2); Red Cell Distribution Width 16.6 % (11.6-14.8); White Blood Cell Count 7.8 X10^3/uL (4.5-11.0)
[2025-01-05 09:59] LABS: Alanine Aminotransferase 17 IU/L (<35); Albumin 4.6 g/dL (3.5-5.0); Albumin Globulin Ratio 1.6 (1.0-2.8); Alkaline Phosphatase 71 U/L (38-126); Aspartate Aminotransferase 28 IU/L (14-36); BUN Creatinine Ratio 22.4 (6-22); Bilirubin Total 0.8 mg/dL (0.2-1.3); Blood Urea Nitrogen 15 mg/dL (7-17); Calcium 9.2 mg/dL (8.4-10.2); Carbon Dioxide 28 mmol/L (22-32); Chloride 107 mmol/L (98-107); Cholesterol 187 mg/dL (140-199); Estimated Glomerular Filt Rate > 60 mL/min (>60); Globulin 2.8 g/dL (1.7-4.1); Glucose 130 mg/dL (80-110); HDL Cholesterol 59 mg/dL (40-60); HEMOLYSIS < 15 (0-50); LDL Cholesterol Calculated 102 mg/dL (<100); Potassium 3.8 mmol/L (3.4-5.1); Sodium 142 mmol/L (137-145); Total Protein 7.4 g/dL (6.3-8.2); Triglycerides 132 mg/dL (35-150)
[2025-01-05 10:31] LABS: TSH w/ Reflex to FT4 0.79 uIU/mL (0.47-4.68)
== END ==
PROVIDERS: PCP Family Medicine; Referring Provider Family Medicine; Visit Provider Family Medicine
DX: E78.5 Hyperlipidemia, unspecified (principal); E03.9 Hypothyroidism, unspecified
CPT/HCPCS: 36415; 80053; 80061; 84443; 85025